=== PATIENT | female | born 1955 | race Caucasian/White ===

== ENCOUNTER → 2024-01-01 13:36 | Outpatient (BNVA) | payer MEDICAID, SELFPAY | PROVIDERS: Family Provider Internal Medicine; PCP Internal Medicine; Visit Provider Nurse Practitioner Family | DX: R50.9 Fever, unspecified (principal) | CPT/HCPCS: 87400; 87426 ==

== ENCOUNTER 2024-01-10 16:27 | Emergency (ER) | payer MEDICARE, SELFPAY ==
[2024-01-10] VITALS (8 sets, daily range): BP systolic 178–230; BP diastolic 86–149; PULSE 63–90; RESP 13–23; TEMP 36.6; O2SAT 93–95
--- NOTE | 2024-01-10 16:55 | ECG_ITS ---
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 Measurements Intervals [place] Rate: 82 P: 0 TX: 0 QRS: 68 QRSD: 74 T: 14 QT: 366 QTc: 429 Interpretive Statements ATRIAL FIBRILLATION NONSPECIFIC ST & T-WAVE ABNORMALITY No previous ECG available for comparison Electronically Signed On 01-11-2024 7:51:05 CDT by Néstor Avila M.D. [email or web address].[id number]
--- NOTE | 2024-01-10 16:55 | XRR_ITS ---
PROCEDURE INFORMATION: Exam: XR Chest Exam date and time: 01/10/2024 5:06 PM Age: 68 years old Clinical indication: Other: Weakness TECHNIQUE: Imaging protocol: Radiologic exam of the chest. Views: 1 view. COMPARISON: CR XR chest 2V* [id number] 02/08/2017 11:39 AM FINDINGS: Lungs: Unremarkable. No consolidation or mass. Pleural spaces: Unremarkable. No pleural effusion. No pneumothorax. Heart/Mediastinum: Unremarkable. No cardiomegaly. Bones/joints: Unremarkable. XR/XR chest 1V portable [id number] IMPRESSION: No acute findings.
--- NOTE | 2024-01-10 17:02 | ED_ITS ---
HPI - Weakness 2 General: Chief complaint: Weakness Stated complaint: disoriented Time Seen by Provider: 01/10/24 17:02 History of Present Illness: 68-year-old female comes in today for co mplaints of poor coordination in hands and feet. Patient reports new onset today about 0800. Patient does have a extensive history of a brain aneurysm in 2016 and 2017 where she had stents placed and coils placed in her brain due to the aneurysm. Patient has a chronic smoker. Patient reports no routine meds. Patient was recently on antibiotics and steroids for upper respiratory infection. Review of Systems 2 General: Reports: 10 or more systems reviewed and unremarkable except in HPI and below PFSH ED 2 PFSH: Social History Lives independently: No Household members: family Housing: House Marital status: Single Number of children: 2 Physical Exam 2 Const: COMMON NORMALS: alert HENMT: COMMON NORMALS: normocephalic HEAD & SCALP: normocephalic Neck/C-Spine: COMMON NORMALS: full ROM Chest: COMMONS NORMALS: normal inspection of the chest Resp: COMMON NORMALS: normal respiratory effort and clear to auscultation bilaterally AUSCULTATION: clear to auscultation bilaterally Cardio: COMMON NORMALS: regular rate RATE: regular rate GI: COMMON NORMALS: Soft to palpation and non-tender PALPATION: Yes Soft to palpation : COMMON NORMALS: Yes no CVA tenderness BLADDER/KIDNEY EXAM: Yes no CVA tenderness Back/Pelvis: COMMON NORMALS: no CVA tenderness Extremity: COMMON NORMALS: normal to inspection NARRATIVE EXTREMITY EXAM: Equal strength, mild ataxia Neuro: SENSORIUM/ORIENTATION: Yes alert Course 2 Vital Signs: Vital signs: Vital Signs Temperature 97.8 F 01/10/24 16:35 Pulse Rate 84 01/11/24 02:41 Respiratory Rate 16 01/11/24 02:41 Blood Pressure 178/91 01/11/24 02:41 Pulse Oximetry 92 01/11/24 02:41 Oxygen Delivery Me thod Room Air 01/11/24 02:04 MDM - Weakness Medical Decision Making 68-year-old female comes in today for concerns of unsteadiness and poor coordination that started this morning. Patient was unable to walk because she did not have any coordination over her legs and hands. Patient does have a history of brain aneurysm with stent and coil placement in 2016. Patient also has a history of nicotine dependence. Patient has had a recent upper respiratory infection on December 26. Patient appears nontoxic. Patient has some mild difficulty with coordination but continues to have difficulty with ambulation at this time. Differential diagnosis includes but not limited to stroke syndrome, ACS, sepsis, electrolyte imbalance, MS, adverse drug effect. EKG shows atrial fibrillation which patient reported no history of however family states that they had seen the surgical scheduler in 2017 for abnormal EKG that suggested possible atrial fibrillation. It is a controlled rate in the 80s. Laboratory values noted a white blood cell count of 13,000, potassium was 3.1, creatinine was 1.2. EKG noted a atrial fibrillation at a rate of 82. Reviewed this with Dr. Zacarias who recommended patient will need to be admitted for further evaluation and cardiac workup due to the new onset A-fib. 1920, CT of the head showed no acute abnormality. Patient is being given 20 mg of labetalol IV that showed no significant change in blood pressure although rate heart did slow down to in the 50s. We will give a dose of hydralazine to see if we can better control of the blood pressure with a goal of 180 systolic. Patient denies any headache or chest pain at this time. Patient appears nontoxic. No facial drooping or weakness is noted to 1 side or the other. Patient has some drift in bilateral lower extremities on exam. Patient does have poor coordination and unable to ambulate without assistance. 1944, reviewed patient with Dr. Contreras who agreed to see the patient but wanted to wait until after CTA was completed. Patient was given hydralazine which lowered her pressure to 178/106, patient now complains of a headache after the hydralazine. 2099, abnormalities noted on the CTA were consulted with Dr. Zacarias he recommended going ahead and discussing with neurology at [facility] in [place] for further recommendations of care. Second EKG noted more sinus arrhythmia versus atrial fibrillation. 2117, talked with Dr. Stokes at [facility] in [place], neurologist. He reviewed CTA and feels patient would benefit from coming over to them for further evaluation and treatment. NIH stroke scale noted to be 1 at this time due to drift in the right lower extremity. I reviewed this with patient and family who agreed to plan at this time. Dr. Stokes recommended keeping the blood pressure at 200 systolic. 2202, discussed patient with hospitalist Shlomo Jeff, Dr. Dejesus, he excepted patient for admit to neuro telemetry. Patient is resting well. Skin is warm and dry. Patient denies any headache at this time. Lab Data 01/10/24 17:30 01/10/24 17:30 Radiology Impressions Chest X-Ray 01/10/24 16:55 IMPRESSION: No acute findings. Head CT 01/10/24 17:25 IMPRESSION: No acute intracranial abnormality. Head/Neck CTA 01/10/24 19:21 IMPRESSION: No large vessel occlusion. Vascular coils in the basilar tip obscure the proximal posterior cerebral arteries which are patent more distally. IMPRESSION: 1. Partial occlusion or dissection of the cervical right vertebral artery of indeterminate acuity. 2. High-grade stenosis with near occlusion at the origin of the left vertebral artery. 3. 70% short segment stenosis of the right internal carotid artery origin. 4. Normal left internal carotid artery. 5. Incidental findings above. REFERENCES: NASCET CRITERIA. The degree of stenosis in the cervical segment of the internal carotid artery is based on NASCET criteria. Normal is no stenosis. Mild is less than 50% stenosis. Moderate is 50-69% stenosis. Severe is 70% to 99% stenosis. Total occlusion is no detectable patent lumen. ADDENDUM: 01/10/242052 THIS REPORT CONTAINS FINDINGS THAT MAY BE CRITICAL TO PATIENT CARE. The findings and recommendations were verbally communicated by me via telephone conference with ZEUS BEY at 8:50 PM CDT on 01/10/2024. The findings were acknowledged and understood. Laboratory Results WBC 13.92 10^3/uL (3.29-11.43) H 01/10/24 17: RBC 4.54 10^6/uL (3.85-5.65) 01/10/24 17:30 Hgb 13.60 g/dL (11.27-16.99) 01/10/24 17:30 Hct 37.0 % (36-47) 01/10/24 17:30 MCV 81.5 fl (85-98) L 01/10/24 17: MCH 30.0 pg (27-33) 01/10/24 17:30 MCHC 36.8 g/dL (30-55) 01/10/24 17:30 RDW 12.1 % (12.1-15.1) 01/10/24 17:30 Plt Count 391 10^3/cmm (157-399) 01/10/24 17:30 MPV 9.0 fL (7.4-10.4) 01/10/24 17:30 Neut % (Auto) 60.0 % 01/10/24 17:30 Lymph % (Auto) 30.0 % 01/10/24 17:30 Giles % (Auto) 8.8 % 01/10/24 17:30 Eos % (Auto) 0.5 % 01/10/24 17:30 Baso % (Auto) 0.3 % 01/10/24 17:30 Neut # (Auto) 8.35 10^3/uL (1.8-7.7) H 01/10/24 17:30 Lymph # (Auto) 4.2 10^3/uL (0.8-4.8) 01/10/24 17:30 Giles # (Auto) 1.2 10^3/uL (0.2-0.9) H 01/10/24 17:30 Eos # (Auto) 0.1 10^3/uL (0.0-0.8) 01/10/24 17:30 Baso # (Auto) 0.0 10^3/uL (0.0-0.1) 01/10/24 17:30 Nucleated RBC % (auto) 0 % 01/10/24 17: Nucleated RBCs # 0.0 /100WBC 01/10/24 17:30 ESR 6 mm/hr (0-15) 01/10/24 17:30 PT 12.80 SECONDS (12.1-14.9) 01/10/24 17:30 INR 0.94 (0.8-1.2) 01/10/24 17:30 APTT 27.5 SECONDS (23.9-36.7) 01/10/24 17:30 Sodium 136 mmol/L (136-145) 01/10/24 17:30 Potassium 3.1 mmol/L (3.5-5.1) L 01/10/24 17:30 Chloride 91 mmol/L (98-107) L 01/10/24 17:30 Carbon Dioxide 32 mmol/L (22-29) H 01/10/24 17:30 Anion Gap 16.1 (5-19) 01/10/24 17:30 BUN 22 mg/dL (8-23) 01/10/24 17:30 Creatinine 1.2 mg/dL (0.5-0.9) H 01/10/24 17:30 GFR Calculation 44.8 mL/min (90-130) L 01/10/24 17:30 Glucose 100 mg/dL (65-115) 01/10/24 17:30 Calculated Osmolality 285 mOsm/kg (285-295) 01/10/24 17:30 Calcium 8.7 mg/dL (8.5-10.5) 01/10/24 17:30 Magnesium 1.8 mg/dL (1.7-2.3) 01/10/24 17:30 Total Bilirubin 0.4 mg/dL (0.15-1.2) 01/10/24 17:30 AST 21 U/L (0-32) 01/10/24 17:30 ALT 17 U/L (0-33) 01/10/24 17:30 Alkaline Phosphatase 82 U/L (35-105) 01/10/24 17:30 Creatine Kinase 33 U/L (26-192) 01/10/24 17:30 Troponin T Baseline 38 ng/L (0-10) H 01/10/24 17:30 Troponin T 120 Minute 37.13 ng/L (0-10) H 01/10/24 19:17 Delta Troponin T -0.87 ABS# (0-10) L 01/10/24 19:17 Troponin T Hi Sens 6Hr 40.29 ng/L (0-10) H 01/10/24 23:42 Troponin T Hi Sens 6Hr Delta 2.29 ng/L (0-12) 01/10/24 23:42 C-Reactive Protein 3.0 mg/L (0.0-4.9) 01/10/24 17:30 Total Protein 5.9 g/dL (6.6-8.7) L 01/10/24 17:30 Albumin 3.8 g/dL (3.5-5.2) 01/10/24 17:30 Globulin 2.1 g/dL (1.3-4.6) 01/10/24 17:30 Lipase 34 U/L (13-60) 01/10/24 17:30 TSH 0.94 uIU/mL (0.27-4.20) 01/10/24 17:30 Urine Color Yellow (Yellow) 01/10/24 18:11 Urine Appearance Clear (CLEAR) 01/10/24 18:11 Urine pH 6 (5-7) 01/10/24 18:11 Ur Specific [place] 1.015 (1.005-1.030) 01/10/24 18:11 Urine Protein 3+ (Negative) H 01/10/24 18:11 Urine Glucose (UA) Norm (Normal) 01/10/24 18:11 Urine Ketones Negative (Negative) 01/10/24 18:11 Urine Blood Neg (Negative) 01/10/24 18:11 Urine Nitrate Negative (Negative) 01/10/24 18:11 Urine Bilirubin Neg (Negative) 01/10/24 18:11 Urine Urobilinogen 1 mg/dL (Negative) H 01/10/24 18:11 Ur Leukocyte Esterase Negative (Negative) 01/10/24 18:11 Urine RBC 0-4 /hpf (0-2) H 01/10/24 18:11 Urine WBC 0-4 /hpf (0-5) H 01/10/24 18:11 Ur Squamous Epith Cells 0-4 /hpf (0-5) H 01/10/24 18:11 Amorphous Sediment Not Reportable 01/10/24 18:11 Urine Bacteria Trace /hpf (NONE) 01/10/24 18:11 Urine Opiates Screen Negative ng/mL (Negative) 01/10/24 18:11 Ur Barbiturates Screen Negative ng/mL (Negative) 01/10/24 18:11 Ur Phencyclidine Scrn Negative ng/mL (Negative) 01/10/24 18:11 Ur Amphetamines Screen Negative ng/mL (Negative) 01/10/24 18:11 U Benzodiazepines Scrn Negative ng/mL (Negative) 01/10/24 18:11 Urine Cocaine Screen Negative ng/mL (Negative) 01/10/24 18:11 U Marijuana (THC) Screen Positive ng/mL (Negative) H 01/10/24 18:11 Ethyl Alcohol < 10 mg/dL (0-10) 01/10/24 17:30 All radiology interpretation(s) finalized by discharge EKG Data EKG 1: EKG interpretation date: 01/10/24 EKG interpretation time: 17:35 Prior EKG tracings: not available for review Interpretation: EKG shows irregular rhythm at 82 bpm. Atrial fibs is noted. No ST elevation or ectopy is noted. No prior exam was available for comparison. Computer generated interpretation: Atrial fibrillation, nonspecific ST and T wave abnormality, abnormal rhythm EKG, unconfirmed report. Discharge Plan Discharge Patient Disposition: Xfer Short-Term Hosp Clinical Impression: Bilateral leg weakness Atrial fibrillation Qualifiers: Atrial fibrillation type: unspecified Qualified Code(s): I48.91 - Unspecified atrial fibrillation Hypertension Qualifiers: Hypertension type: unspecified Qualified Code(s): I10 - Essential (primary) hypertension Condition: Stable Referrals: Delio Riddle DO [Primary Care Provider] - Coding Level of Care Code ED Brass Buffer for [facility] [place]
--- NOTE | 2024-01-10 17:25 | CTR_ITS ---
PROCEDURE INFORMATION: Exam: CT Head Without Contrast Exam date and time: 01/10/2024 5:45 PM Age: 68 years old Clinical indication: Walking, difficulty; Prior surgery; Surgery date: 6+ months; Surgery type: Aneurysm; Additional info: Leg weakness TECHNIQUE: Imaging protocol: Computed tomography of the head without contrast. Radiation optimization: All CT scans at this facility use at least one of these dose optimization techniques: automated exposure control; mA and/or kV adjustment per patient size (includes targeted exams where dose is matched to clinical indication); or iterative reconstruction. COMPARISON: CT head wo con* [id number] 03/03/2017 11:42 AM RADIATION DOSE METRICS: Total DLP (mGy-cm): 950.39 FINDINGS: Limitations: There is beam hardening artifact from vascular coils in the suprasellar cistern. Brain: There is diffuse cerebral atrophy and chronic microvascular white matter disease. There is no significant mass effect or midline shift. There is no acute intracranial hemorrhage. Cerebral ventricles: There is mild ex vacuo dilation of the lateral ventricles. The basal cisterns are unremarkable. Paranasal sinuses: The paranasal sinuses are clear. Mastoid air cells: The mastoid air cells are clear. Bones/joints: The calvarium is intact. Soft tissues: The visible extracranial soft tissues are unremarkable. CT/CT head wo con* [id number] IMPRESSION: No acute intracranial abnormality.
[2024-01-10 17:36] LABS: Basophils % 0.3 %; Eosinophils # 0.1 10^3/uL (0.0-0.8); Eosinophils % 0.5 %; Lymphocytes # 4.2 10^3/uL (0.8-4.8); Mean Corpuscular HGB Conc 36.8 g/dL (30-55); Mean Corpuscular Volume 81.5 fl (85-98); Monocytes # 1.2 10^3/uL (0.2-0.9); Monocytes % 8.8 %; Neutrophils # 8.35 10^3/uL (1.8-7.7); Nucleated Red Blood Cells % 0 %; Platelet Count 391 10^3/cmm (157-399); Red Blood Count 4.54 10^6/uL (3.85-5.65); Red Cell Distribution Width 12.1 % (12.1-15.1); White Blood Count 13.92 10^3/uL (3.29-11.43)
[2024-01-10 17:39] LABS: Erythrocyte Sedimentation Rate 6 mm/hr (0-15)
[2024-01-10 18:04] LABS: INR 0.94 (0.8-1.2); Partial Thromboplastin Time 27.5 SECONDS (23.9-36.7)
[2024-01-10 18:16] LABS: Troponin(5th) Baseline 38 ng/L (0-10)
[2024-01-10 18:26] LABS: Alanine Aminotransferase 17 U/L (0-33); Albumin Level 3.8 g/dL (3.5-5.2); Alkaline Phosphatase 82 U/L (35-105); Anion Gap 16.1 (5-19); Aspartate Amino Transferase 21 U/L (0-32); Blood Urea Nitrogen 22 mg/dL (8-23); Calcium 8.7 mg/dL (8.5-10.5); Carbon Dioxide 32 mmol/L (22-29); Chloride 91 mmol/L (98-107); Creatine Phosphokinase 33 U/L (26-192); Creatinine Clr Calc Pharmacy 29.9693; Globulin 2.1 g/dL (1.3-4.6); Glomerular Filtration Rate 44.8 mL/min (90-130); Glucose 100 mg/dL (65-115); Lipase 34 U/L (13-60); Osmolality Calculated 285 mOsm/kg (285-295); Potassium 3.1 mmol/L (3.5-5.1); Sodium 136 mmol/L (136-145); Thyroid Stimulating Hormone 0.94 uIU/mL (0.27-4.20); Total Bilirubin 0.4 mg/dL (0.15-1.2); Total Protein 5.9 g/dL (6.6-8.7)
[2024-01-10] MEDS: labetalol 5 mg/mL SDV 20mL 20 MG IVP (18:44)
[2024-01-10 18:48] LABS: Alcohol Level < 10 mg/dL (0-10)
[2024-01-10 18:56] LABS: Amphetamines Screen Urine Negative (Negative); Barbiturates Screen Urine Negative (Negative); Benzodiazepines Screen Urine Negative (Negative); Cocaine Screen Urine Negative (Negative); Opiate Screen Urine Negative (Negative); PCP Screen Urine Negative (Negative); THC Screen Urine Positive (Negative)
[2024-01-10 19:04] LABS: Add Urine Microscopic? YES; Bilirubin Urine Neg (Negative); Blood Urine Neg (Negative); Glucose Urine UA Norm (Normal); Ketones Urine Negative (Negative); Leukocyte Esterase Urine Negative (Negative); Nitrate Urine Negative (Negative); Protein Urine 3+ (Negative); Specific Gravity, Urine 1.015 (1.005-1.030); Urine Appearance Clear (CLEAR); Urine Color Yellow (Yellow); Urobilinogen Urine 1 mg/dL (Negative); pH Urine 6 (5-7)
[2024-01-10 19:05] LABS: Add Urine Culture? No; Bacteria Urine TRACE /hpf; RBC Urine 0-4 /hpf (0-2); Squamous Epithelial Cell Urine 0-4 /hpf (0-5); WBC Urine 0-4 /hpf (0-5)
--- NOTE | 2024-01-10 19:21 | CTR_ITS ---
PROCEDURE INFORMATION: Exam: CTA Head With Contrast, Arteriography Exam date and time: 01/10/2024 8:00 PM Age: 68 years old Clinical indication: Other: Juan leg weakness; Prior surgery; Surgery date: 6+ months; Surgery type: Aneurysm; Additional info: Leg weakness bilateral TECHNIQUE: Imaging protocol: Computed tomographic angiography of the head with contrast. Exam focused on the arteries. 3D rendering (Not supervised by radiologist): MIP and/or 3D reconstructed images were created by the technologist. Radiation optimization: All CT scans at this facility use at least one of these dose optimization techniques: automated exposure control; mA and/or kV adjustment per patient size (includes targeted exams where dose is matched to clinical indication); or iterative reconstruction. Contrast material: OMNI 350; Contrast volume: 80 ml; Contrast route: INTRAVENOUS (IV); COMPARISON: CT head wo con* [id number] 01/10/2024 5:45 PM RADIATION DOSE METRICS: Total DLP (mGy-cm): 330.42 FINDINGS: ANTERIOR CIRCULATION: Right internal carotid artery: There is mild ectasia of the mid cavernous portion of the right internal carotid artery without stenosis. Right middle cerebral artery: No occlusion or significant stenosis. No aneurysm. Right anterior cerebral artery: No occlusion or significant stenosis. No aneurysm. Left internal carotid artery: Intracranial segment is patent with no significant stenosis. No aneurysm. Left middle cerebral artery: No occlusion or significant stenosis. No aneurysm. Left anterior cerebral artery: No occlusion or significant stenosis. No aneurysm. POSTERIOR CIRCULATION: Right vertebral artery: Patent hypoplastic right vertebral artery. Left vertebral artery: Patent left dominant vertebral artery. Basilar artery: There are vascular coils in the basilar tip obscuring the posterior cerebral artery origins. Right posterior cerebral artery: The right posterior cerebral artery is normal beyond the P1 segment and is obscured more proximally. Left posterior cerebral artery: The left posterior cerebral artery is normal beyond the P1 segment and is obscured more proximally. Veins: Dural venous sinuses are patent. Brain: There is no significant mass effect or midline shift. No pathologic enhancement of the brain. Cerebral ventricles: There is mild ex vacuo dilation of the lateral ventricles. The basal cisterns are unremarkable. Pituitary gland and sella: There is beam hardening artifact from vascular coils in the suprasellar cistern. Mastoid air cells: The mastoid air cells are clear. Paranasal sinuses: The paranasal sinuses are clear. Bones/joints: The calvarium is intact. Soft tissues: The visible extracranial soft tissues are unremarkable. PROCEDURE INFORMATION: Exam: CTA Neck With Contrast Exam date and time: 01/10/2024 8:00 PM Age: 68 years old Clinical indication: Other: Juan leg weakness; Prior surgery; Surgery date: 6+ months; Surgery type: Aneurysm; Additional info: Leg weakness bilateral TECHNIQUE: Imaging protocol: Computed tomographic angiography of the neck with contrast. Exam focused on the cervical segments of the vasculature. 3D rendering (Not supervised by radiologist): MIP and/or 3D reconstructed images were created by the technologist. Radiation optimization: All CT scans at this facility use at least one of these dose optimization techniques: automated exposure control; mA and/or kV adjustment per patient size (includes targeted exams where dose is matched to clinical indication); or iterative reconstruction. Contrast material: OMNI 350; Contrast volume: 80 ml; Contrast route: INTRAVENOUS (IV); COMPARISON: CT head wo con* [id number] 01/10/2024 5:45 PM RADIATION DOSE METRICS: Total DLP (mGy-cm): 330.42 FINDINGS: Right common carotid artery: No stenosis. No dissection or occlusion. Right internal carotid artery: There is severe noncalcific plaque at the origin of the right internal carotid artery with approximately 70% stenosis over a short segment. Right external carotid artery: No occlusion or stenosis of the origin. Left common carotid artery: No stenosis. No dissection or occlusion. Left internal carotid artery: No stenosis of the extracranial segment. No dissection or occlusion. Left external carotid artery: No occlusion or stenosis of the origin. Right vertebral artery: The origin is of the right vertebral artery is patent. There is minimal intermittent contrast visible in the cervical portion of the right vertebral artery, incompletely filling the lumen. Left vertebral artery: There is high-grade stenosis with near occlusion of the left dominant vertebral artery origin. Soft tissues: Soft tissues in the neck and thoracic inlet are unremarkable. Bones/joints: There is moderate degenerative disease in the cervical spine. Lungs: The severe centrilobular emphysema is seen in the lung apices. CT/CT angio headneck* [id number] IMPRESSION: No large vessel occlusion. Vascular coils in the basilar tip obscure the proximal posterior cerebral arteries which are patent more distally. IMPRESSION: 1. Partial occlusion or dissection of the cervical right vertebral artery of indeterminate acuity. 2. High-grade stenosis with near occlusion at the origin of the left vertebral artery. 3. 70% short segment stenosis of the right internal carotid artery origin. 4. Normal left internal carotid artery. 5. Incidental findings above. REFERENCES: NASCET CRITERIA. The degree of stenosis in the cervical segment of the internal carotid artery is based on NASCET criteria. Normal is no stenosis. Mild is less than 50% stenosis. Moderate is 50-69% stenosis. Severe is 70% to 99% stenosis. Total occlusion is no detectable patent lumen.
[2024-01-10] MEDS: hyDRALAzine 20 mg/mL INJ 1 mL 10 MG IVP (19:33)
[2024-01-10] MEDS: potassium chloride oral liq 20 mEq/15 mL UDC 40 MEQ PO (19:33)
[2024-01-10] MEDS: aspirin 81 mg Chew Tablet 162 MG PO (19:33)
[2024-01-10 19:42] LABS: Troponin 5 2HR 37.13 ng/L (0-10)
[2024-01-10 19:44] LABS: Magnesium 1.8 mg/dL (1.7-2.3)
[2024-01-10 19:44] LABS: Troponin 5 2HR Delta -0.87 ABS# (0-10)
[2024-01-10] MEDS: iohexol 350 mg/mL 500 mL Btl (per mL) IV (20:00)
[2024-01-10] MEDS: acetaminophen 325 mg Tablet 650 MG PO (20:12)
--- NOTE | 2024-01-10 20:35 | ECG_ITS ---
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 Measurements Intervals [place] Rate: 80 P: 78 KS: 151 QRS: 71 QRSD: 71 T: 53 QT: 367 QTc: 424 Interpretive Statements SINUS RHYTHM WITH MARKED SINUS ARRHYTHMIA Compared to ECG 01/10/2024 17:03:52 Atrial fibrillation no longer present T-wave abnormality no longer present Electronically Signed On 01-11-2024 7:49:55 CDT by Néstor Avila M.D. [email or web address] [facility].[employer]/store/OM/[id number]
[2024-01-11 00:11] VITALS: BP 216/98; PULSE 86; RESP 18; O2SAT 94
[2024-01-11 00:11] LABS: Troponin 5 6HR 40.29 ng/L (0-10); Troponin 5 6HR Delta 2.29 ng/L (0-12)
[2024-01-11] MEDS: oxyCODONE 5 mg IR Tab/Cap PO (00:11)
[2024-01-11 00:35] VITALS: BP 190/120; PULSE 94; O2SAT 94
[2024-01-11 01:05] VITALS: BP 228/125; PULSE 62; O2SAT 95
[2024-01-11] MEDS: labetalol 5 mg/mL SDV 20mL 10 MG IVP (01:54)
[2024-01-11 02:04] VITALS: BP 178/93; PULSE 58; O2SAT 90
[2024-01-11 02:41] VITALS: BP 178/91; PULSE 84; RESP 16; O2SAT 92
--- NOTE | 2024-01-11 02:56 | PC.NURSE ---
Report called to Joy Mcnair RN at [facility]. Patient to be transferred to room [facility]. Patient agreed to fly via [facility].
--- NOTE | 2024-01-11 03:22 | PC.NURSE ---
Report given to Rashad flight nurse. All questions and concerns addressed at time of report.
== END 2024-01-11 03:42 | disposition short-term general hospital (02) ==
PROVIDERS: Emergency Medicine; Emergency Provider Nurse Practitioner Family; PCP Internal Medicine
DX: R53.1 Weakness (principal); I48.91 Unspecified atrial fibrillation; I10 Essential (primary) hypertension; Z72.0 Tobacco use
CPT/HCPCS: 36415; 70450; 70496; 70498; 71045; 80053; 80306; 80307; 81001; 82550; 83690; 83735; 84443; 84484; 85025; 85610; 85651; 85730; 86140; 93005; 96374; 96375; 96376; 99285; J0360; J3490; Q9967

== ENCOUNTER 2024-02-15 19:58 | Inpatient (IN) | payer MEDICARE, SELFPAY ==
[2024-02-15] VITALS (8 sets, daily range): BP systolic 162–224; BP diastolic 77–111; PULSE 65–95; RESP 17–22; TEMP 36.4; O2SAT 93–99
--- NOTE | 2024-02-15 20:13 | CTR_ITS ---
PROCEDURE INFORMATION: Exam: CT Head Without Contrast Exam date and time: 02/15/2024 8:18 PM Age: 68 years old Clinical indication: Stroke-like symptoms; RT upper extremity and RT lower extremity weakness; Additional info: Symptoms of acute stroke TECHNIQUE: Imaging protocol: Computed tomography of the head without contrast. Radiation optimization: All CT scans at this facility use at least one of these dose optimization techniques: automated exposure control; mA and/or kV adjustment per patient size (includes targeted exams where dose is matched to clinical indication); or iterative reconstruction. Other technique: STROKE PROTOCOL was implemented. COMPARISON: CT angio headneck* [id number] 01/10/2024 8:00 PM RADIATION DOSE METRICS: Total DLP (mGy-cm): 930.4 FINDINGS: Brain: No hemorrhage. No edema. Coil embolization material noted. Moderate diffuse cerebral atrophy and sequela of chronic small vessel ischemic disease. Focal areas of encephalomalacia noted in the left cerebellar hemisphere and right occipital lobe corresponding to old infarcts. No mass effect. Cerebral ventricles: No ventriculomegaly. Paranasal sinuses: Visualized sinuses are unremarkable. No fluid levels. Mastoid air cells: Visualized mastoid air cells are well aerated. Bones/joints: Unremarkable. No acute fracture. Soft tissues: Unremarkable. CT/CT head thrombolytic [id number] IMPRESSION: No acute intracranial abnormality. ASSESSMENT: ASPECTS ([place] Stroke Program Early CT Score) is 10.
--- NOTE | 2024-02-15 20:13 | XRR_ITS ---
PROCEDURE INFORMATION: Exam: XR Chest Exam date and time: 02/15/2024 8:43 PM Age: 68 years old Clinical indication: Other: AMS TECHNIQUE: Imaging protocol: Radiologic exam of the chest. Views: 1 view. COMPARISON: CR (CHEST, ) 01/10/2024 5:06 PM FINDINGS: Lungs: Unremarkable. No consolidation. Pleural spaces: Unremarkable. No pleural effusion. No pneumothorax. Heart/Mediastinum: Unremarkable. No cardiomegaly. Bones/joints: Unremarkable. XR/XR chest 1V portable [id number] IMPRESSION: No acute findings.
[2024-02-15 20:26] LABS: Basophils # 0.1 10^3/uL (0.0-0.1); Basophils % 0.4 %; Eosinophils # 0.1 10^3/uL (0.0-0.8); Eosinophils % 0.5 %; Hematocrit 40.3 % (36-47); Lymphocytes # 2.6 10^3/uL (0.8-4.8); Mean Corpuscular HGB Conc 35.5 g/dL (30-55); Mean Corpuscular Hemoglobin 29.1 pg (27-33); Mean Corpuscular Volume 82.1 fl (85-98); Mean Platelet Volume 9.4 fL (7.4-10.4); Monocytes # 0.8 10^3/uL (0.2-0.9); Monocytes % 5.5 %; Neutrophils # 10.05 10^3/uL (1.8-7.7); Neutrophils % 74.3 %; Nucleated Red Blood Cells % 0 %; Platelet Count 338 10^3/cmm (157-399); Red Blood Count 4.91 10^6/uL (3.85-5.65); White Blood Count 13.55 10^3/uL (3.29-11.43)
[2024-02-15] MEDS: labetalol 5 mg/mL SDV 20mL IVP ×2 (20:28→20:59)
--- NOTE | 2024-02-15 20:29 | ECG_ITS ---
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 Measurements Intervals [place] Rate: 75 P: 80 IA: 158 QRS: 73 QRSD: 80 T: 55 QT: 384 QTc: 431 Interpretive Statements SINUS RHYTHM WITH OCCASIONAL SUPRAVENTRICULAR PREMATURE COMPLEXES MODERATE ST DEPRESSION [0.05+ mV ST DEPRESSION] Compared to ECG 01/10/2024 20:35:22 ST (T wave) deviation now present Sinus arrhythmia no longer present Electronically Signed On 02-17-2024 19:16:39 CDT by Jalen Alejandre M.D. [id number]
--- NOTE | 2024-02-15 20:37 | P.HP_ITS ---
Providers/Chief Complaint 2 Primary Care Provider: Delio Riddle DO Chief Complaint: right arm and leg weakness History of Present Illness Debbie Peres is a 68 year old female who was seen in the ER a month ago when she presented with right-sided weakness, she had diagnosis of 70% stenosis of right internal carotid and possibility of vertebral dissection she was transferred to [facility] she was admitted to neuro service. As per the patient she was managed medically no surgical intervention was recommended because risk outweighed benefits she has history of 2 coiling and stent in the past. 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 She was out of TNKase window code stroke was called, she was hypertensive blood pressure 206/93 m mercury, she was given labetalol. We request records from [facility]. Patient does smoke however stating that she is try to cut back on her smoking Does not drink alcohol, she is not diabetic CT head unremarkable I will request CTA head and neck as well NIH score 6 Review of Systems 2 Eyes: Denies: change in vision ENMT: Denies: throat pain Card: Denies: chest pain Resp: Denies: dyspnea GI: Denies: abdominal pain : Denies: flank pain Musc: Reports: back pain Neuro: Reports: numbness in extremities and sensory changes Medications/Allergies Home Medications Medication Instructions Recorded Confirmed Last Taken Type albuterol sulfate 90 mcg/actuation 2 puff inhalation QID PRN 01/01/24 01/01/24 Unknown Rx aerosol inhaler shortness of breath or wheezing #6.7 grams azithromycin 250 mg tablet See Rx Instructions PO .COMPLEX #6 01/01/24 01/01/24 Unknown Rx tabs ondansetron 8 mg disintegrating 8 mg PO Q8H PRN nausea and 01/01/24 01/01/24 Unknown Rx tablet vomiting #21 tabs prednisone 20 mg tablet 20 mg PO BID #10 tabs 01/01/24 01/01/24 Unknown Rx Allergies Allergy/AdvReac Type Severity Reaction Status Date / Time No Known Allergies Allergy Unverified 02/15/24 20:04 PFSH Acute 2 PFSH: Social History Lives independently: No Household members: family Housing: House Marital status: Single Number of children: 2 Vitals/I&O/Wt Last Vital Signs Temp 97.5 F L 02/15/24 19:59 Pulse 78 02/15/24 20:37 Resp 20 H 02/15/24 20:37 BP 189/99 02/15/24 20:37 Pulse Ox 94 02/15/24 20:37 O2 Del Method Room Air 02/15/24 20:37 Weight last 48 hrs Weight 43.998 kg Physical Exam 2 Narrative: Anion score 6 Right hand prepress stripper weakness as compared to left Difficulty lifting right limbs against gravity Right arm drift present Right-sided visual field defect No dysarthria Pleasant cooperative S1, S2 Currently movement Data 02/15/24 20:14 02/15/24 20:14 A&P Assessment and plan (1) CVA (cerebral vascular accident): (2) Hypertensive emergency: Plan Acute CVA Ischemic in nature Likely anterior circulation related Recurrent symptoms NIH score is 6 Not a TNKase candidate her symptoms started 8 AM I will start patient on aspirin Plavix along high-dose statins Request PT OT and ST CT head unremarkable Previous CTA head and neck showed: 1. Partial occlusion or dissection of the cervical right vertebral artery of indeterminate acuity. 2. High-grade stenosis with near occlusion at the origin of the left vertebral artery. 3. 70% short segment stenosis of the right internal carotid artery origin. 4. Normal left internal carotid artery. 5. Incidental findings above Will request B12, TSH, echo Will request records from [facility] As per the patient neurology recommended medical management Hypertensive emergency: Patient has been given labetalol I will add amlodipine and lisinopril Permissive hypertension for next 24 hours Full code Cardiac diet DVT prophylaxis added Patient is an active smoker, smokes less than half pack a day Will need extensive counseling Attestations 2 Medical Necessity Statement*: Anticipating discharge within 48 hours Diagnoses CVA (cerebral vascular accident) I63.9 Hypertensive emergency I16.1
[2024-02-15 20:43] LABS: INR 0.92 (0.8-1.2)
[2024-02-15 20:44] LABS: Partial Thromboplastin Time 33.3 SECONDS (23.9-36.7)
[2024-02-15 20:45] LABS: Glucose Point of Care 160 mg/dL (70-110)
[2024-02-15 20:50] LABS: Alanine Aminotransferase 39 U/L (0-33); Albumin Level 4.5 g/dL (3.5-5.2); Alkaline Phosphatase 104 U/L (35-105); Aspartate Amino Transferase 44 U/L (0-32); Blood Urea Nitrogen 14 mg/dL (8-23); Calcium 9.8 mg/dL (8.5-10.5); Carbon Dioxide 27 mmol/L (22-29); Chloride 96 mmol/L (98-107); Creatinine Clr Calc Pharmacy 37.9177; Globulin 3.6 g/dL (1.3-4.6); Glomerular Filtration Rate 55.3 mL/min (90-130); Glucose 156 mg/dL (65-115); Osmolality Calculated 286 mOsm/kg (285-295); Sodium 136 mmol/L (136-145); Total Bilirubin 0.5 mg/dL (0.15-1.2); Total Protein 8.1 g/dL (6.6-8.7)
--- NOTE | 2024-02-15 20:58 | W.ED.NEUROSD ---
HPI - Neuro Symptoms/Deficit General: Chief Complaint: Neuro Symptoms/Deficit Stated Complaint: right arm and leg weakness Time Seen by Provider: 02/15/24 20:12 History of Present Illness: 68-year-old female presents emergency department with her family members. [place] member states that the patient started having right arm and right leg weakness that started approximately 8 AM this morning and has continued throughout the day. The family member state that her last known well time was at 2200 last night. Patient does have a history of brain aneurysm with coiling and has had a previous CVA and has uncontrolled hypertension. Patient states she does have a 5 out of 10 throbbing headache. She also reports that she did have a fall this morning after she noted her right side being weak. Associated symptoms: Reports headache(s) Review of Systems General: Reports: 10 or more systems reviewed and unremarkable except in HPI and below Neuro: Reports: headache(s), weakness in extremities and Slurred speech present [facility] ED PFSH: Social History Lives independently: No Household members: family Housing: House Marital status: Single Number of children: 2 Physical Exam Narrative: EXAM NARRATIVE: Constitutional: the patient appears well nourished and with normal development. Vital signs reviewed as documented. HENMT: Normocephalic, atraumatic. External ears normal appearance without drainage. Nose without drainage, normal appearance. Mucus membranes moist. Neck is supple, No jugular venous distension, trachea is midline, no appreciable carotid bruits. No lymphadenopathy. No meningeal signs. Flexion, extension and lateral rotation is without pain. Eyes: Pupils are equal, round, reactive to light and accommodation. No scleral icterus. Extra-ocular movement are intact. Thorax is symmetrical and with equal rise and fall with respirations. Resp: Lungs are clear to auscultation. No wheezes, rales, crackles or ronchi at present. Cardio: Regular rate and rhythm. Positive S1, S2. No appreciable murmurs, rubs or gallops. GI: Abdominal exam reveals normal bowel sounds to all quadrants. No organomegaly. No obvious palpable masses noted. No hepatomegally appreciated. Soft, non-tender to palpation. Extremity: Extremities are non-edematous and both femoral and pedal pulses are 2+ and equal bilaterally. Moves all extremities well, sensation in all extremities. Neuro: Alert and oriented x4, person, place, time and situation. Patient does have right arm and right leg weakness and facial droop. Sensation intact to all extremities. 2-point discrimination intact. Light touch intact to all extremities. Motor strength in the upper and lower extremities are equal and bilateral 5/5. Psych: Cooperative, calm, normal thought process, appropriate judgment. Skin: No lesions, rashes. No gross abnormalities noted. Back: Symmetrical, no obvious deformity, No CVA tenderness Course Vital Signs: Vital signs: Vital Signs Temperature 97.5 F L 02/15/24 19:59 Pulse Rate 65 02/15/24 21:05 Respiratory Rate 17 02/15/24 21:05 Blood Pressure 162/83 02/15/24 21:15 Pulse Oximetry 95 02/15/24 21:05 Oxygen Delivery Me thod Room Air 02/15/24 20:51 MDM - Neuro Symptoms/Deficit Medical Decision Making NIH Stroke Scale/Score (NIHSS) on 02/15/2024 RESULT SUMMARY: 7 points NIH Stroke Scale INPUTS: 1A: Level of consciousness ?> 0 = Alert; keenly responsive 1B: Ask month and age ?> 0 = Both questions right 1C: 'Blink eyes' & 'squeeze hands' ?> 0 = Performs both tasks 2: Horizontal extraocular movements ?> 0 = Normal 3: Visual suh ?> 0 = No visual loss 4: Facial palsy ?> 2 = Partial paralysis (lower face) 5A: Left arm motor drift ?> 0 = No drift for 10 seconds 5B: Right arm motor drift ?> 2 = Drift, hits bed 6A: Left leg motor drift ?> 0 = No drift for 5 seconds 6B: Right leg motor drift ?> 2 = Drift, hits bed 7: Limb Ataxia ?> 1 = Ataxia in 1 Limb 8: Sensation ?> 0 = Normal; no sensory loss 9: Language/aphasia ?> 0 = Normal; no aphasia 10: Dysarthria ?> 0 = Normal 11: Extinction/inattention ?> 0 = No abnormality Dr. Bay contacted and the patient's presentation and NIH score discussed with her. I did obtain a CT scan of the head as well as CBC CMP EKG chest x-ray. Patient's blood pressure is significantly elevated and I have provided labetalol for control of her hypertension. I will also requested previous medical records from [facility]. Medical Records I reviewed the patient's medical records. Lab Data I reviewed the patient's lab results. 02/15/24 20:14 02/15/24 20:14 Radiology Impressions Chest X-Ray 02/15/24 20:13 IMPRESSION: No acute findings. Head CT 02/15/24 20:13 IMPRESSION: No acute intracranial abnormality. ASSESSMENT: ASPECTS (Libby Stroke Program Early CT Score) is 10. Laboratory Results WBC 13.55 10^3/uL (3.29-11.43) H 02/15/24 20:14 RBC 4.91 10^6/uL (3.85-5.65) 02/15/24 20:14 Hgb 14.30 g/dL (11.27-16.99) 02/15/24 20:14 Hct 40.3 % (36-47) 02/15/24 20:14 MCV 82.1 fl (85-98) L 02/15/24 20:14 MCH 29.1 pg (27-33) 02/15/24 20:14 MCHC 35.5 g/dL (30-55) 02/15/24 20:14 RDW 12.0 % (12.1-15.1) L 02/15/24 20:14 Plt Count 338 10^3/cmm (157-399) 02/15/24 20:14 MPV 9.4 fL (7.4-10.4) 02/15/24 20:14 Neut % (Auto) 74.3 % 02/15/24 20:14 Lymph % (Auto) 19.0 % 02/15/24 20:14 Dodge % (Auto) 5.5 % 02/15/24 20:14 Eos % (Auto) 0.5 % 02/15/24 20:14 Baso % (Auto) 0.4 % 02/15/24 20:14 Neut # (Auto) 10.05 10^3/uL (1.8-7.7) H 02/15/24 20:14 Lymph # (Auto) 2.6 10^3/uL (0.8-4.8) 02/15/24 20:14 Dodge # (Auto) 0.8 10^3/uL (0.2-0.9) 02/15/24 20:14 Eos # (Auto) 0.1 10^3/uL (0.0-0.8) 02/15/24 20:14 Baso # (Auto) 0.1 10^3/uL (0.0-0.1) 02/15/24 20:14 Nucleated RBC % (auto) 0 % 02/15/24 20:14 Nucleated RBCs # 0.0 /100WBC 02/15/24 20:14 PT 12.70 SECONDS (12.1-14.9) 02/15/24 20:14 INR 0.92 (0.8-1.2) 02/15/24 20:14 APTT 33.3 SECONDS (23.9-36.7) 02/15/24 20:14 Sodium 136 mmol/L (136-145) 02/15/24 20:14 Potassium 3.0 mmol/L (3.5-5.1) L 02/15/24 20:14 Chloride 96 mmol/L (98-107) L 02/15/24 20:14 Carbon Dioxide 27 mmol/L (22-29) 02/15/24 20:14 Anion Gap 16.0 (5-19) 02/15/24 20:14 BUN 14 mg/dL (8-23) 02/15/24 20:14 Creatinine 1.0 mg/dL (0.5-0.9) H 02/15/24 20:14 GFR Calculation 55.3 mL/min (90-130) L 02/15/24 20:14 Glucose 156 mg/dL (65-115) H 02/15/24 20:14 POC Glucose 160 mg/dL (70-110) H 02/15/24 20:12 Calculated Osmolality 286 mOsm/kg (285-295) 02/15/24 20:14 Calcium 9.8 mg/dL (8.5-10.5) 02/15/24 20:14 Total Bilirubin 0.5 mg/dL (0.15-1.2) 02/15/24 20:14 AST 44 U/L (0-32) H 02/15/24 20:14 ALT 39 U/L (0-33) H 02/15/24 20:14 Alkaline Phosphatase 104 U/L (35-105) 02/15/24 20:14 Total Protein 8.1 g/dL (6.6-8.7) 02/15/24 20:14 Albumin 4.5 g/dL (3.5-5.2) 02/15/24 20:14 Globulin 3.6 g/dL (1.3-4.6) 02/15/24 20:14 All radiology interpretation(s) finalized by discharge EKG Data EKG 1: Interpretation: Twelve-lead EKG obtained at 2028 reviewed at 2029 demonstrates sinus rhythm with a ventricular rate of 75 bpm, DE interval 158, QRS duration 80, QT 384, QTc 413 there is no significant ST elevation or depression at present. There is significant motion artifact noted. Critical Care Time Critical Care Time: Critical Care Time: Yes Total Critical Care Time: 45 Attestation: The patients was emergently evaluated as this patient's presentation and case had a high probability of a clinically significant, sudden, or life threatening deterioration of this patient's initial critical presentation or condition which required my full and direct attention, intervention and personal management. Discharge Plan Discharge Patient Disposition: Admitted As Inpatient Admit Provider: Lizzy Contreras Clinical Impression: Posterior reversible encephalopathy syndrome (PRES), Cerebrovascular accident, Hypertension, uncontrolled, Hypertensive emergency Condition: Stable Coding Level of Care Code ED Theology Professor for Soledad Marrero
--- NOTE | 2024-02-15 21:06 | CTR_ITS ---
PROCEDURE INFORMATION: Exam: CTA Head With Contrast, Arteriography Exam date and time: 02/15/2024 9:39 PM Age: 68 years old Clinical indication: Stroke-like symptoms; RT upper extremity weakness; Additional info: CVA TECHNIQUE: Imaging protocol: Computed tomographic angiography of the head with contrast. Exam focused on the arteries. 3D rendering (Not supervised by radiologist): MIP and/or 3D reconstructed images were created by the technologist. Radiation optimization: All CT scans at this facility use at least one of these dose optimization techniques: automated exposure control; mA and/or kV adjustment per patient size (includes targeted exams where dose is matched to clinical indication); or iterative reconstruction. Contrast material: OMNI 350; Contrast volume: 80 ml; Contrast route: INTRAVENOUS (IV); COMPARISON: CT angio headneck* [id number] 01/10/2024 8:00 PM RADIATION DOSE METRICS: Total DLP (mGy-cm): 306.3 FINDINGS: ANTERIOR CIRCULATION: Right internal carotid artery: Intracranial segment is patent with no significant stenosis. No aneurysm. Right middle cerebral artery: No occlusion or significant stenosis. No aneurysm. Right anterior cerebral artery: No occlusion or significant stenosis. No aneurysm. Left internal carotid artery: Intracranial segment is patent with no significant stenosis. No aneurysm. Left middle cerebral artery: No occlusion or significant stenosis. No aneurysm. Left anterior cerebral artery: No occlusion or significant stenosis. No aneurysm. POSTERIOR CIRCULATION: Right vertebral artery: No occlusion or significant stenosis. No aneurysm. Hypoplastic. Left vertebral artery: No occlusion or significant stenosis. No aneurysm. Basilar artery: Vascular coils in the basilar tip obscure the proximal posterior cerebral arteries which are patent more distally. Right posterior cerebral artery: No occlusion or significant stenosis. No aneurysm. Left posterior cerebral artery: No occlusion or significant stenosis. No aneurysm. Brain: No focal hemorrhage or midline shift identified. Cerebral ventricles: No evidence of ventriculomegaly or hydrocephalus. The ventricles seem age-appropriate. Bones/joints: Unremarkable. No acute fracture. Soft tissues: Unremarkable. PROCEDURE INFORMATION: Exam: CTA Neck With Contrast Exam date and time: 02/15/2024 9:39 PM Age: 68 years old Clinical indication: Stroke-like symptoms; RT upper extremity weakness; Additional info: CVA TECHNIQUE: Imaging protocol: Computed tomographic angiography of the neck with contrast. Exam focused on the cervical segments of the vasculature. 3D rendering (Not supervised by radiologist): MIP and/or 3D reconstructed images were created by the technologist. Radiation optimization: All CT scans at this facility use at least one of these dose optimization techniques: automated exposure control; mA and/or kV adjustment per patient size (includes targeted exams where dose is matched to clinical indication); or iterative reconstruction. Contrast material: OMNI 350; Contrast volume: 80 ml; Contrast route: INTRAVENOUS (IV); COMPARISON: CT angio headneck* [id number] 01/10/2024 8:00 PM RADIATION DOSE METRICS: Total DLP (mGy-cm): 306.3 FINDINGS: Right common carotid artery: No stenosis. No dissection or occlusion. Right internal carotid artery: At the right proximal ICA there is an 80% stenosis. There is also motion here. The mid to distal right ICA is markedly tortuous. Right external carotid artery: No occlusion or high-grade stenosis identififed. Left common carotid artery: No stenosis. No dissection or occlusion. Left internal carotid artery: No stenosis of the extracranial segment. No dissection or occlusion. Left external carotid artery: No occlusion or high-grade stenosis identififed. Right vertebral artery: The proximal to mid right vertebral artery just beyond its origin shows no flow/occlusion. There is a small amount of flow and small size in the upper vertebral artery at the skull base. Left vertebral artery: Large plaque at left vertebral artery origin. Soft tissues: No significant soft tissue swelling or other acute finding noted. Bones/joints: Unchanged. Lungs: Mild COPD. [facility] [id number] IMPRESSION: 1. No change from 01/10/2024. 2. No large vessel stenosis or occlusion. 3. Vascular coils in the basilar tip obscure the proximal posterior cerebral arteries which are patent more distally. IMPRESSION: 1. No change from 01/10/2024. 2. Unchanged occlusion or dissection of the cervical right vertebral artery. 3. High-grade stenosis with near occlusion at the origin of the left vertebral artery. 4. 70-80% short segment stenosis of the right internal carotid artery origin. 5. Normal left internal carotid artery. 6. Incidental findings above. REFERENCES: NASCET CRITERIA. The degree of stenosis in the cervical segment of the internal carotid artery is based on NASCET criteria. Normal is no stenosis. Mild is less than 50% stenosis. Moderate is 50-69% stenosis. Severe is 70% to 99% stenosis. Total occlusion is no detectable patent lumen.
[2024-02-15 21:59] LABS: Estmated Average Glucose 97
[2024-02-15] MEDS: iohexol 350 mg/mL 500 mL Btl (per mL) IV (22:31)
--- NOTE | 2024-02-15 22:51 | USCV_ITS ---
Debbie Peres Age: 68 Gender: F : 1955 Exam Date: 02/15/2024 23:41 Ordering Phys: Lizzy Contreras MD Technologist: JOSEPH [place] [facility] [place]: cva BP: 224 / 111 HR: 75 Rhythm: Sinus Technical Quality: Adequate MEASUREMENTS (Male / Female) Normal Values 2D ECHO LV Diastolic Diameter PLAX 2.9 cm 4.2 - 5.9 / 3.9 - 5.3 cm IVS Diastolic Thickness 1.4 cm 0.6 - 1.0 / 0.6 - 0.9 cm IVS Systolic Thickness 1.5 cm LVPW Diastolic Thickness 1.2 cm 0.6 - 1.0 / 0.6 - 0.9 cm LVPW Systolic Thickness 0.0 cm LVOT Diameter 1.5 cm LV Ejection Fraction 2D Teich 64.2 % LV Ejection Fraction MOD 2C 54.5 % LV Ejection Fraction 2C AL 54.0 % LA Diameter 1.7 cm LA Sys Volume AL 20.7 cm cubed LA Sys Volume Index AL 14.8 cm cubed/m squared Aorta at Sinotubular Diameter 2.2 cm IVC Diameter 1.6 cm M-MODE LA Ao Ratio MM 1.3 MV E Point Septal Separation 0.0 cm AV Cusp Separation MM 1.5 cm DOPPLER AV Peak Velocity 166.0 cm/s LVOT Peak Velocity 128.0 cm/s AV Area Cont Eq vti 1.4 cm squared AV Area Cont Eq pk 1.3 cm squared MV Peak Velocity 91.0 cm/s MV Area PHT 3.0 cm squared Mitral E to A Ratio 0.8 TV Peak E Velocity 41.0 cm/s PV Peak Velocity 155.0 cm/s FINDINGS Left Ventricle Normal LV size with a hypercontractile ventricle, ejection fraction of 85% (visual) Moderate concentric left-ventricular hypertrophy.Grade I/IV diastolic dysfunction (abnormal relaxation filling pattern), normal to mildly elevated filling pressures. Right Ventricle The right ventricle is normal in size and function. Right Atrium The right atrium is normal in size. Left Atrium The left atrium is normal in size. Mitral Valve Thickened mitral valve. Aortic Valve Thickened aortic valve. Tricuspid Valve No gross abnormalities noted Pulmonic Valve No gross abnormalities noted Pericardium Normal pericardium without effusion. Aorta Normal ascending aorta dimension. IVC Normal inferior vena cava. CONCLUSIONS Normal LV size with a hypercontractile ventricle, ejection fraction of 85% (visual) Moderate concentric left-ventricular hypertrophy. Grade I/IV diastolic dysfunction (abnormal relaxation filling pattern), normal to mildly elevated filling pressures. Thickened aortic and mitral valves No significant stenotic or relative lesion relocated lesions There is no pericardial effusion. There are no intracardiac masses. No similar previous studies are available for comparison Dr Jalen Alejandre MD [facility] (Electronically Signed) Final Date: 20 February 2024 08:11 S
[2024-02-16] VITALS (8 sets, daily range): BP systolic 124–237; BP diastolic 64–105; PULSE 77–97; RESP 15–18; TEMP 36.4–37; O2SAT 91–95; BMI 16.6
[2024-02-16 00:11] LABS: Vitamin B12 717 pg/mL (232-1245)
[2024-02-16] MEDS: enoxaparin 40 mg/0.4 mL Syringe SUBCUT ×2 (00:24→22:21)
[2024-02-16] MEDS: lisinopril 10 mg Tablet PO ×2 (00:25→09:46)
[2024-02-16] MEDS: hyDRALAzine 20 mg/mL INJ 1 mL 10 MG IVP (04:34)
[2024-02-16 04:58] LABS: Basophils % 0.4 %; Eosinophils # 0.1 10^3/uL (0.0-0.8); Eosinophils % 1.1 %; Hematocrit 35.3 % (36-47); Lymphocytes # 2.7 10^3/uL (0.8-4.8); Lymphocytes % 25.4 %; Mean Corpuscular HGB Conc 35.7 g/dL (30-55); Mean Corpuscular Hemoglobin 29.6 pg (27-33); Mean Corpuscular Volume 82.9 fl (85-98); Mean Platelet Volume 9.5 fL (7.4-10.4); Monocytes # 0.7 10^3/uL (0.2-0.9); Monocytes % 6.9 %; Neutrophils # 6.89 10^3/uL (1.8-7.7); Neutrophils % 65.8 %; Nucleated Red Blood Cells % 0 %; Platelet Count 298 10^3/cmm (157-399); Red Blood Count 4.26 10^6/uL (3.85-5.65); Red Cell Distribution Width 12.1 % (12.1-15.1); White Blood Count 10.46 10^3/uL (3.29-11.43)
[2024-02-16 05:18] LABS: Anion Gap 15.7 (5-19); Blood Urea Nitrogen 14 mg/dL (8-23); Calcium 9.1 mg/dL (8.5-10.5); Carbon Dioxide 25 mmol/L (22-29); Chloride 93 mmol/L (98-107); Creatinine Clr Calc Pharmacy 39.0906; Glomerular Filtration Rate 55.3 mL/min (90-130); Glucose 122 mg/dL (65-115); Magnesium 1.9 mg/dL (1.7-2.3); Osmolality Calculated 274 mOsm/kg (285-295); Phosphorus 4.6 mg/dL (2.5-4.5); Sodium 131 mmol/L (136-145)
[2024-02-16 05:27] LABS: Potassium 2.7 mmol/L (3.5-5.1)
[2024-02-16] MEDS: lidocaine 1% 5 ML in potassium chloride premix 100 ML 52.5 ML IV ×2 (06:25→09:52)
--- NOTE | 2024-02-16 09:07 | PC.CHAP ---
Pastoral Care Encounter/Spiritual Assessment Type of Contact [] Declined evs manager visit [] Patient/Family/Request visit [] Outpatient visit [] Follow-up visit [] Physician referral [] Code/Alert [] Routine visit [] Staff referral [] Actively dying [x] Patient sleeping [] Family support [] [] Out of room [] Palliative care [] [] Receiving care in room [] Pre-surgical visit [] Trauma [] Long length of stay [] ICU visit [] Other: Relational/Emotional Strength [] Patient feels connected with others/family/visitors/staff [] Distress [] Loneliness/isolation [] Abandonment Spirituality of Patient [] Person of Jemma [] Attends Episcopalian of their Jemma [] Believes in Prayer [] Reads Bible or Moravian materials [] There are Spiritual issues to be addressed Assistant Family Teacher Interventions [] Prayer [] Active listening [] Non-anxious presence [] Spiritual/emotional support [] Crisis/trauma care [] Spiritual counseling [] Bereavement support [] Provided bereavement packet [] Provided Bible/devotional materials [] Provided toy/stuffed animal, coloring book to patient or family member [] Provided Communion [] Anointing/[place] [] Salvation [] Completed spiritual assessment [] Other: Impact on Illness or Injury [] Angry [] Fearful [] Anxious [] Often cries [] Exhaustion [] Unable to work [] Unable to attend restorationist [] Unable to walk/stand [] Unable to read [] Unable to drive [] Unable to eat/drink [] Unable to sleep [] Unable to be with family [] Patient intubated [] Other: Summary Time spent with patient
[2024-02-16] MEDS: aspirin 81 mg EC Tablet PO (09:47)
[2024-02-16] MEDS: sennosides-docusate Tablet 1 TAB PO (09:48)
[2024-02-16] MEDS: clopidogrel 75 mg Tablet PO (09:48)
[2024-02-16] MEDS: atorvastatin 40 mg Tablet 80 MG PO (09:50)
--- NOTE | 2024-02-16 12:31 | P.PN_ITS ---
Subjective 2 Subjective: seen this morning unable to move right side wants rehab Vitals/I&O/Wt Last Vital Signs Temp 98.6 F 02/16/24 11:33 Pulse 93 02/16/24 11:33 Resp 15 02/16/24 11:33 BP 131/67 02/16/24 11:33 Pulse Ox 93 02/16/24 11:33 O2 Del Method Room Air 02/16/24 11:33 02/15/24 02/16/24 02/16/24 22:59 06:59 14:59 Intake Total 240 / 240 570 / 570 Balance 240 / 240 570 / 570 Weight last 48 hrs Weight 45.359 kg Weight 43.998 kg Weight 43.998 kg Physical Exam 2 Narrative: sitting up in bed appearing comfortable. 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 unable to move right lower extremity at all. No dysarthria Pleasant cooperative S1, S2 lungs clear to ausculation b/l Data 02/16/24 04:38 02/16/24 04:38 A&P Assessment and plan (1) CVA (cerebral vascular accident): (2) Hypertensive emergency: Plan Acute CVA Ischemic in nature Likely anterior circulation related Recurrent symptoms NIH score is 6 Not a TNKase candidate her symptoms started 8 AM I will start patient on aspirin Plavix along high-dose statins Request PT OT and ST CT head unremarkable Previous CTA head and neck showed: 1. Partial occlusion or dissection of the cervical right vertebral artery of indeterminate acuity. 2. High-grade stenosis with near occlusion at the origin of the left vertebral artery. 3. 70% short segment stenosis of the right internal carotid artery origin. 4. Normal left internal carotid artery. 5. Incidental findings above Will request [id number], TSH pending, echo pending Will request records from [facility] As per the patient neurology recommended medical management Hypertensive emergency: Patient has been given labetalol I will add amlodipine and lisinopril Permissive hypertension for next 24 hours Full code Cardiac diet DVT prophylaxis added Patient is an active smoker, smokes less than half pack a day Will need extensive counseling PT/OT Disposition: Talked with social service coordinator. Refer to rehab. Attestations 2 Medical Necessity Statement*: Anticipating discharge within 48 hours Diagnoses CVA (cerebral vascular accident) I63.9 Hypertensive emergency I16.1
[2024-02-16 18:37] LABS: Anion Gap 14.4 (5-19); Blood Urea Nitrogen 21 mg/dL (8-23); Calcium 8.5 mg/dL (8.5-10.5); Carbon Dioxide 25 mmol/L (22-29); Chloride 100 mmol/L (98-107); Creatinine Clr Calc Pharmacy 27.9219; Glomerular Filtration Rate 37.5 mL/min (90-130); Glucose 162 mg/dL (65-115); Osmolality Calculated 289 mOsm/kg (285-295); Potassium 3.4 mmol/L (3.5-5.1); Sodium 136 mmol/L (136-145)
[2024-02-17] VITALS (7 sets, daily range): BP systolic 129–168; BP diastolic 50–83; PULSE 78–108; RESP 15–16; TEMP 36.6–36.9; O2SAT 91–94
[2024-02-17 06:00] LABS: Basophils # 0.1 10^3/uL (0.0-0.1); Basophils % 0.8 %; Eosinophils # 0.2 10^3/uL (0.0-0.8); Eosinophils % 2.4 %; Hematocrit 36.6 % (36-47); Lymphocytes # 2.7 10^3/uL (0.8-4.8); Lymphocytes % 38.4 %; Mean Corpuscular HGB Conc 34.2 g/dL (30-55); Mean Corpuscular Hemoglobin 29.4 pg (27-33); Mean Corpuscular Volume 86.1 fl (85-98); Mean Platelet Volume 9.5 fL (7.4-10.4); Monocytes # 0.5 10^3/uL (0.2-0.9); Monocytes % 6.8 %; Neutrophils # 3.66 10^3/uL (1.8-7.7); Neutrophils % 51.5 %; Nucleated Red Blood Cells % 0 %; Platelet Count 280 10^3/cmm (157-399); Red Blood Count 4.25 10^6/uL (3.85-5.65); Red Cell Distribution Width 12.6 % (12.1-15.1); White Blood Count 7.11 10^3/uL (3.29-11.43)
[2024-02-17 06:20] LABS: Anion Gap 14.4 (5-19); Blood Urea Nitrogen 20 mg/dL (8-23); Calcium 8.5 mg/dL (8.5-10.5); Carbon Dioxide 24 mmol/L (22-29); Chloride 103 mmol/L (98-107); Creatinine Clr Calc Pharmacy 26.0604; Glomerular Filtration Rate 34.6 mL/min (90-130); Glucose 96 mg/dL (65-115); Osmolality Calculated 288 mOsm/kg (285-295); Potassium 3.4 mmol/L (3.5-5.1); Sodium 138 mmol/L (136-145)
[2024-02-17] MEDS: aspirin 81 mg EC Tablet PO (08:31)
[2024-02-17] MEDS: lisinopril 10 mg Tablet PO (08:31)
[2024-02-17] MEDS: atorvastatin 40 mg Tablet 80 MG PO (08:31)
[2024-02-17] MEDS: sennosides-docusate Tablet 1 TAB PO (08:31)
[2024-02-17] MEDS: clopidogrel 75 mg Tablet PO (08:31)
--- NOTE | 2024-02-17 12:58 | P.PN_ITS ---
Subjective 2 Subjective: seen this morning baseline function R upper and lower extremity is returned she feels back to normal says was [place] [facility] no intervention is being planned family asking for another neuro referral records still [place] [facility] Vitals/I&O/Wt Last Vital Signs Temp 98.0 F 02/17/24 12:05 Pulse 108 H 02/17/24 12:05 Resp 16 02/17/24 12:05 BP 129/79 02/17/24 12:05 Pulse Ox 93 02/17/24 12:05 O2 Del Method Room Air 02/17/24 12:05 02/16/24 02/17/24 02/17/24 22:59 06:59 14:59 Intake Total 240 / 1050 360 / 1410 480 / 480 Balance 240 / 1050 360 / 1410 480 / 480 Weight last 48 hrs Weight 45.359 kg Weight 45.359 kg Weight 43.998 kg Weight 43.998 kg Physical Exam 2 Narrative: sitting up in bed appearing comfortable. Right hand it generalist weakness as compared to left able to move right leg and right arm. dramatic improvement compared to yesterday. Right-sided visual field defect improved No dysarthria Pleasant cooperative S1, S2 lungs clear to ausculation b/l Data 02/17/24 05:49 02/17/24 05:49 A&P Assessment and plan (1) CVA (cerebral vascular accident): (2) Hypertensive emergency: Plan Acute CVA Ischemic in nature Likely anterior circulation related Recurrent symptoms NIH score is 6 Not a TNKase candidate her symptoms started 8 AM I will start patient on aspirin Plavix along high-dose statins Request PT OT and ST CT head unremarkable Previous CTA head and neck showed: 1. Partial occlusion or dissection of the cervical right vertebral artery of indeterminate acuity. 2. High-grade stenosis with near occlusion at the origin of the left vertebral artery. 3. 70% short segment stenosis of the right internal carotid artery origin. 4. Normal left internal carotid artery. 5. Incidental findings above Will request [id number], TSH pending, echo pending Will request records from [facility] - STILL PENDING As per the patient neurology recommended medical management. Awaiting PT evaluation today. Discussed with patient, if rec by PT may send to SNF for rehab otherwise may DC home. Hypertensive emergency: Patient has been given labetalol I will add amlodipine and lisinopril Permissive hypertension for next 24 hours Full code Cardiac diet DVT prophylaxis added Patient is an active smoker, smokes less than half pack a day Will need extensive counseling PT/OT Disposition: Talked with rn social work. Refer to rehab. Attestations 2 Medical Necessity Statement*: Anticipating discharge within 48 hours Diagnoses CVA (cerebral vascular accident) I63.9 Hypertensive emergency I16.1
[2024-02-17] MEDS: enoxaparin 40 mg/0.4 mL Syringe SUBCUT (22:28)
[2024-02-18 04:00] VITALS: BP 160/77; PULSE 86; RESP 16; TEMP 36.7; O2SAT 95
[2024-02-18 07:42] VITALS: BP 177/73; PULSE 77; RESP 18; TEMP 36.6; O2SAT 93
[2024-02-18] MEDS: clopidogrel 75 mg Tablet PO (08:25)
[2024-02-18] MEDS: atorvastatin 40 mg Tablet 80 MG PO (08:25)
[2024-02-18] MEDS: lisinopril 10 mg Tablet PO (08:25)
[2024-02-18] MEDS: aspirin 81 mg EC Tablet PO (08:26)
[2024-02-18 08:58] VITALS: PULSE 77; RESP 18; O2SAT 93
--- NOTE | 2024-02-18 12:02 | PM.PN ---
Subjective Subjective: seen this morning no acute events overnight pt working with therapy awaiting snf placement will see vascular surgery as outpatient reviewed patient's dc summary from [facility] she was recommended to see vascular surgery and neurology as outpatient for further workup and management. Vitals/I&O/Wt Last Vital Signs Temp 97.8 F 02/18/24 07:42 Pulse 77 02/18/24 08:58 Resp 18 02/18/24 08:58 BP 177/73 02/18/24 07:42 Pulse Ox 93 02/18/24 08:58 O2 Del Method Room Air 02/18/24 08:58 02/17/24 02/18/24 02/18/24 22:59 06:59 14:59 Intake Total 240 / 720 480 / 1200 480 / 480 Balance 240 / 720 480 / 1200 480 / 480 Weight last 48 hrs Weight 45.359 kg Weight 45.359 kg Physical Exam Narrative: sitting up in recliner working with PT appearing comfortable. 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 dramatic improvement compared to yesterday. Right-sided visual field defect improved No dysarthria Pleasant cooperative S1, S2 lungs clear to ausculation b/l Data 02/17/24 05:49 02/17/24 05:49 A&P Assessment and plan (1) CVA (cerebral vascular accident): (2) Hypertensive emergency: Plan Acute CVA Ischemic in nature Likely anterior circulation related Recurrent symptoms NIH score is 6 Not a TNKase candidate her symptoms started 8 AM I will start patient on aspirin Plavix along high-dose statins Request PT OT and ST CT head unremarkable Previous CTA head and neck showed: 1. Partial occlusion or dissection of the cervical right vertebral artery of indeterminate acuity. 2. High-grade stenosis with near occlusion at the origin of the left vertebral artery. 3. 70% short segment stenosis of the right internal carotid artery origin. 4. Normal left internal carotid artery. 5. Incidental findings above Will request [id number], TSH pending, echo pending Will request records from [facility] - STILL PENDING As per the patient neurology recommended medical management. 02/18/2024 Reviewed dc summary from [facility] - f/u with neurology and vascular surgery as outpatient - plan for snf placement monday for rehab as per PT recs - patient awaiting placement. - continue on aspiriin, plavix , atorvastatin x90 days as per paperwork from [facility] - event monitor also recommended to r/o underlying afib. patient did not have that setup yet. will setup [place] [facility] [place]. Hypertensive emergency: Patient has been given labetalol I will add amlodipine and lisinopril Permissive hypertension for next 24 hours Full code Cardiac diet DVT prophylaxis added Patient is an active smoker, smokes less than half pack a day Will need extensive counseling PT/OT Disposition: Talked with director social service. Refer to rehab. Attestations Medical Necessity Statement*: awaiting placement to snf rehab Diagnoses CVA (cerebral vascular accident) I63.9 Hypertensive emergency I16.1
--- NOTE | 2024-02-18 12:41 | PM.DCS ---
Discharge Providers Date of Admission: 02/16/24 10:00 Date of Discharge: February 18, 2024 Attending Provider at Admission: Lizzy Contreras MD Attending Provider at Discharge: Genie Sprague MD Primary Care Provider: Delio Riddle DO Diagnoses at Discharge Discharge Diagnosis (1) CVA (cerebral vascular accident): Status: Acute (2) Hypertensive emergency: Status: Acute Reason for Visit Reason for Visit: right arm and leg weakness Hospital Course Hospital Course Patient presented with right arm and leg weakness which self resolved. Patient does have vertebral artery stenosis almost complete occlusion. At previous visit last month she was transferred to [facility] in [place] and was seen by hospitalist and stroke team there. No intervention was performed. tPA was not given. Patient was discharged home with medical management to follow-up with neurology and vascular surgery outpatient. Patient is unable to follow with them yet and does not have an appointment. Discharge summary from [facility] was reviewed. Patient was recommended rehab here however since she was doing very well PT also recommended that if she can be with somebody and use a walker and wheelchair we may proceed to discharge home. Patient's daughter will assume her care going forward. Daughter will take her home with her and patient does have a walker. Patient has been advised to follow-up with neurology and vascular surgery outpatient for further management and workup. She is to go home on aspirin atorvastatin, clopidogrel and metoprolol titrate. Patient also needs an event monitor at discharge as per recommendations from [facility] to rule out atrial fibrillation. I will put in a request for that however it is scented today and cannot be set up today. Patient will receive a call from hospital to have that scheduled. Physical Exam Narrative: sitting up in recliner working with PT appearing comfortable. 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 dramatic improvement compared to yesterday. Right-sided visual field defect improved No dysarthria Pleasant cooperative S1, S2 lungs clear to ausculation b/l Discharge Data Studies Completed and Pending Completed Studies During Hospitalization Category Date Time Status CT head thrombolytic [id number] Stat Cat Scan 02/15/24 20:13 Completed CTA head neck [CT angio headneck* [id number]] Stat Cat Scan 02/15/24 21:06 Completed XR chest 1V portable [id number] Stat Exams 02/15/24 20:13 Completed Pending at discharge Category Date Time Status Drug Screen, Urine Stat Lab 02/15/24 20:13 Ordered Urinalysis Stat Lab 02/15/24 20:13 Ordered CV. echo complete* [id number] Routine Ultrasound 02/15/24 22:51 Taken Radiology Impressions Chest X-Ray 02/15/24 20:13 IMPRESSION: No acute findings. Head CT 02/15/24 20:13 IMPRESSION: No acute intracranial abnormality. ASSESSMENT: ASPECTS ([place] Stroke Program Early CT Score) is 10. Head/Neck CTA 02/15/24 21:06 IMPRESSION: 1. No change from 01/10/2024. 2. No large vessel stenosis or occlusion. 3. Vascular coils in the basilar tip obscure the proximal posterior cerebral arteries which are patent more distally. IMPRESSION: 1. No change from 01/10/2024. 2. Unchanged occlusion or dissection of the cervical right vertebral artery. 3. High-grade stenosis with near occlusion at the origin of the left vertebral artery. 4. 70-80% short segment stenosis of the right internal carotid artery origin. 5. Normal left internal carotid artery. 6. Incidental findings above. REFERENCES: NASCET CRITERIA. The degree of stenosis in the cervical segment of the internal carotid artery is based on NASCET criteria. Normal is no stenosis. Mild is less than 50% stenosis. Moderate is 50-69% stenosis. Severe is 70% to 99% stenosis. Total occlusion is no detectable patent lumen. Laboratory Results WBC 7.11 10^3/uL (3.29-11.43) 02/17/24 05:49 RBC 4.25 10^6/uL (3.85-5.65) 02/17/24 05:49 Hgb 12.50 g/dL (11.27-16.99) 02/17/24 05:49 Hct 36.6 % (36-47) 02/17/24 05:49 MCV 86.1 fl (85-98) 02/17/24 05:49 MCH 29.4 pg (27-33) 02/17/24 05:49 MCHC 34.2 g/dL (30-55) 02/17/24 05:49 RDW 12.6 % (12.1-15.1) 02/17/24 05:49 Plt Count 280 10^3/cmm (157-399) 02/17/24 05:49 MPV 9.5 fL (7.4-10.4) 02/17/24 05:49 Neut % (Auto) 51.5 % 02/17/24 05:49 Lymph % (Auto) 38.4 % 02/17/24 05:49 [place] % (Auto) 6.8 % 02/17/24 05:49 Eos % (Auto) 2.4 % 02/17/24 05:49 Baso % (Auto) 0.8 % 02/17/24 05:49 Neut # (Auto) 3.66 10^3/uL (1.8-7.7) 02/17/24 05:49 Lymph # (Auto) 2.7 10^3/uL (0.8-4.8) 02/17/24 05:49 [place] # (Auto) 0.5 10^3/uL (0.2-0.9) 02/17/24 05:49 Eos # (Auto) 0.2 10^3/uL (0.0-0.8) 02/17/24 05:49 Baso # (Auto) 0.1 10^3/uL (0.0-0.1) 02/17/24 05:49 Nucleated RBC % (auto) 0 % 02/17/24 05:49 Nucleated RBCs # 0.0 /100WBC 02/17/24 05:49 PT 12.70 SECONDS (12.1-14.9) 02/15/24 20:14 INR 0.92 (0.8-1.2) 02/15/24 20:14 APTT 33.3 SECONDS (23.9-36.7) 02/15/24 20:14 Sodium 138 mmol/L (136-145) 02/17/24 05:49 Potassium 3.4 mmol/L (3.5-5.1) L 02/17/24 05:49 Chloride 103 mmol/L (98-107) 02/17/24 05:49 Carbon Dioxide 24 mmol/L (22-29) 02/17/24 05:49 Anion Gap 14.4 (5-19) 02/17/24 05:49 BUN 20 mg/dL (8-23) 02/17/24 05:49 Creatinine 1.5 mg/dL (0.5-0.9) H 02/17/24 05:49 GFR Calculation 34.6 mL/min (90-130) L 02/17/24 05:49 Glucose 96 mg/dL (65-115) 02/17/24 05:49 POC Glucose 160 mg/dL (70-110) H 02/15/24 20:12 Estimat Average Glucose 97 02/15/24 20:14 Hemoglobin A1c 5.0 % (4.0-6.0) 02/15/24 20:14 Calculated Osmolality 288 mOsm/kg (285-295) 02/17/24 05:49 Calcium 8.5 mg/dL (8.5-10.5) 02/17/24 05:49 Phosphorus 4.6 mg/dL (2.5-4.5) H 02/16/24 04:38 Magnesium 2.0 mg/dL (1.7-2.3) 02/17/24 05:49 Total Bilirubin 0.5 mg/dL (0.15-1.2) 02/15/24 20:14 AST 44 U/L (0-32) H 02/15/24 20:14 ALT 39 U/L (0-33) H 02/15/24 20:14 Alkaline Phosphatase 104 U/L (35-105) 02/15/24 20:14 C-Reactive Protein 3.0 mg/L (0.0-4.9) 02/16/24 04:38 Total Protein 8.1 g/dL (6.6-8.7) 02/15/24 20:14 Albumin 4.5 g/dL (3.5-5.2) 02/15/24 20:14 Globulin 3.6 g/dL (1.3-4.6) 02/15/24 20:14 Vitamin B12 717 pg/mL (232-1245) 02/15/24 20:14 Vitals Last Vital Signs Temp 97.8 F 02/18/24 07:42 Pulse 77 02/18/24 08:58 Resp 18 02/18/24 08:58 BP 177/73 02/18/24 07:42 Pulse Ox 93 02/18/24 08:58 O2 Del Method Room Air 02/18/24 08:58 Discharge Plan Discharge Patient Disposition: Home Condition: Stable Prescriptions: New atorvastatin 40 mg Tablet 80 mg PO DAILY Qty: 30 0RF clopidogrel 75 mg Tablet 75 mg PO DAILY Qty: 30 0RF aspirin 81 mg Tablet,Delayed Release (Dr/Ec) 81 mg PO DAILY Qty: 30 0RF lisinopril 10 mg Tablet 20 mg PO DAILY Qty: 30 0RF Continued albuterol sulfate 90 mcg/actuation HFA aerosol inhaler 2 puff inhalation QID PRN (Reason: shortness of breath or wheezing) Qty: 6.7 0RF bupropion HCl 150 mg tablet sustained-release 12 hr 150 mg PO QAM metoprolol tartrate 25 mg tablet 25 mg PO BID amlodipine 5 mg tablet 5 mg PO DAILY Qty: 30 0RF Discontinued atorvastatin 40 mg tablet 40 mg PO DAILY hydralazine 25 mg tablet 25 mg PO TID Discharge Orders: Discharge Order (Routine); Ordered 02/18/24 Ordered By: Genie Sprague Referrals: Sheryl Bay MD [Physician] - 4-7 days (Please call [phone] tomorrow to set up an appointment to see Dr. Bay. ) Lucrecia Franco APN [Referring] - 02/27/24 10:00 am Ellis Gil MD [Physician] - 4-7 days (Please call [phone] tomorrow to set up an appointment to see Dr. Gil.) Discharge Diet: Cardiac Discharge Activity: Limit activity as instructed, Use walker/crutches as instructed and As per PT/OT instructions Patient Instructions: Lisinopril (By mouth), Aspirin (By mouth), Atorvastatin (By mouth) (Lipitor, Atorvaliq), Clopidogrel (By mouth) (Plavix), Chronic Hypertension (DC), Hypertensive Crisis (DC), Stroke (DC), Opioid Safety, Pain Management Activity Restrictions/Additional Instructions: Please ensure you follow up with vascular surgery and neurology as per your discharge paperwork from [facility]. Discharge Attestations Time Spent in Discharge Care*: less than 30 min Quality Metrics Clinical Quality Measures [ No reported AMI, CVA or VTE this stay] Coding Level of Care Code Acute Code for [facility] Fwd Diagnoses CVA (cerebral vascular accident) I63.9 Hypertensive emergency I16.1
[2024-02-18 13:33] VITALS: PULSE 77; RESP 18; O2SAT 93
== END 2024-02-18 13:33 | disposition home or self-care (01) | DRG 65 ==
LOC: ER 21:10 → MEDSURG 21:38
PROVIDERS: Admitting Provider Internal Medicine; Emergency Provider Internal Medicine; PCP Internal Medicine; Visit Provider Internal Medicine
DX: I63.9 Cerebral infarction, unspecified (principal); G81.91 Hemiplegia, unspecified affecting right dominant side; I16.1 Hypertensive emergency; R29.706 NIHSS score 6; Z72.0 Tobacco use; I65.03 Occlusion and stenosis of bilateral vertebral arteries; I65.21 Occlusion and stenosis of right carotid artery; Z86.73 Personal history of transient ischemic attack (TIA), and cerebral infarction without residual deficits
CPT/HCPCS: 36415; 36416; 70450; 70496; 70498; 71045; 80048; 80053; 82607; 82962; 83036; 83735; 84100; 85025; 85610; 85730; 86140; 92523; 92610; 93005; 93306; 96372; 96374; 96375; 97110; 97116; 97161; 97166; 97530; 97535; 99285; G0378; J0360; J1650; J3480; J3490; Q9967

== ENCOUNTER → 2024-02-26 13:12 | Outpatient (BNVA) | payer MEDICARE, SELFPAY | PROVIDERS: PCP Internal Medicine; Visit Provider Thoracic Surgery (Cardiothoracic Vascular Surgery) | DX: I65.21 Occlusion and stenosis of right carotid artery (principal); F17.210 Nicotine dependence, cigarettes, uncomplicated | CPT/HCPCS: 99203 ==

== ENCOUNTER 2024-03-11 15:15 | Outpatient (CLI) | payer MEDICARE, SELFPAY ==
--- NOTE | 2024-03-11 15:21 | XRR_ITS ---
PROCEDURE INFORMATION: Exam: XR Lumbosacral Spine Exam date and time: 03/11/2024 3:28 PM Age: 68 years old Clinical indication: Injury or trauma; Fall; Blunt trauma (contusions or hematomas); Injury date: 1 week ago; Additional info: Lumbosacral pain TECHNIQUE: Imaging protocol: Radiologic exam of the lumbosacral spine. Views: 2 or 3 views. COMPARISON: No relevant prior studies available. FINDINGS: Bones/joints: Prominent scoliosis is noted along with associated multilevel vertebral body spurring, degenerative disc disease and facet arthropathy. No fracture or subluxation noted. Soft tissues: Unremarkable. XR/XR lumbar spine 2-3V* [id number] IMPRESSION: Scoliosis with multilevel arthritic changes
== END 2024-03-11 15:16 | disposition home or self-care (01) ==
LOC: RAD 15:17
PROVIDERS: Visit Provider Nurse Practitioner Family
DX: M41.87 Other forms of scoliosis, lumbosacral region (principal); W19.XXXA Unspecified fall, initial encounter; M51.37 Other intervertebral disc degeneration, lumbosacral region; M47.817 Spondylosis without myelopathy or radiculopathy, lumbosacral region
CPT/HCPCS: 72100

== ENCOUNTER → 2024-04-01 07:55 | Outpatient (BNVA) | payer MEDICARE, SELFPAY | PROVIDERS: PCP Nurse Practitioner Family; Visit Provider Thoracic Surgery (Cardiothoracic Vascular Surgery) | DX: I65.21 Occlusion and stenosis of right carotid artery (principal); Z72.0 Tobacco use | CPT/HCPCS: 99213 ==

== ENCOUNTER 2024-09-10 10:56 | Inpatient (IN) | payer MEDICARE, SELFPAY ==
[2024-09-10] VITALS (9 sets, daily range): BP systolic 118–152; BP diastolic 49–82; PULSE 57–84; RESP 16–18; TEMP 36.3–36.6; O2SAT 95–97; BMI 18.9; BMI 21.8
--- NOTE | 2024-09-10 11:39 | XR_ITS ---
WS: [id number] Exam: XR hip RT 2-3V wo/w pel* [id number] Date/Time of Exam: 09/10/2024 11:48 AM Reason For Exam: fall There is an intertrochanteric fracture of the RIGHT hip. No significant displacement noted. Mild DJD of the joint compartment. XR/XR hip RT 2-3V wo/w pel* [id number] IMPRESSION: 1. Nondisplaced intertrochanteric fracture of the RIGHT hip.
--- NOTE | 2024-09-10 12:00 | XR_ITS ---
WS: [id number] Exam: XR chest 1V portable [id number] Date/Time of Exam: 09/10/2024 12:04 PM Reason For Exam: PAIN Comparison 02/15/2024. The lungs are fully inflated and clear. Cardiomediastinal silhouette is normal no pleural effusions. Bony structures are intact. Old LEFT clavicle fracture. Mild levoscoliosis of the T-spine. XR/XR chest 1V portable [id number] IMPRESSION: 1. No acute finding.
--- NOTE | 2024-09-10 12:33 | ED_ITS ---
HPI - Extremity Problem 2 General: Chief complaint: Extremity Injury, Lower Stated complaint: thinks she broke hip Time Seen by Provider: 09/10/24 12:20 History of Present Illness: 69-year-old female presents emergency ro om she fell last night in her kitchen landed on her right hip she has severe right hip pain. She stated home overnight she did try to get around a little bit but was unable to stand finally presented to the emergency room via private vehicle complaining of hip pain her family brought her in. Patient states she took a muscle relaxer to help with her pain last night. She denies any other injury denies striking her head denies chest pain or abdominal pain. Associated symptoms: Deny chest pain, fever(s) or rash Related Data Home Medications Medication Instructions Recorded Confirmed metoprolol tartrate 25 mg tablet 25 mg PO BID 02/16/24 09/10/24 bupropion HCl 100 mg tablet,12 hr 100 mg PO DAILY 04/01/24 09/10/24 sustained-release (Wellbutrin SR) hydrochlorothiazide 25 mg tablet 25 mg PO DAILY 04/01/24 09/10/24 hydralazine 25 mg tablet 25 mg PO DAILY 09/10/24 09/10/24 lisinopril 20 mg tablet 20 mg PO DAILY 09/10/24 09/10/24 omeprazole 20 mg capsule,delayed 20 mg PO DAILY 09/10/24 09/10/24 release Previous Rx's Medication Instructions Recorded albuterol sulfate 90 mcg/actuation 2 puff inhalation QID PRN 01/01/24 aerosol inhaler shortness of breath or wheezing #6.7 grams amlodipine 5 mg tablet 5 mg PO DAILY #30 tabs 02/18/24 atorvastatin 40 mg tablet 80 mg (2 x 40 mg) PO DAILY #30 tabs 02/18/24 clopidogrel 75 mg tablet 75 mg PO DAILY #30 tabs 02/18/24 aspirin 325 mg capsule 325 mg PO DAILY #30 caps 09/12/24 hydrocodone 5 mg-acetaminophen 325 1 tab PO Q4H PRN Moderate To 09/12/24 mg tablet Severe Pain 1st #10 tabs Allergies Allergy/AdvReac Type Severity Reaction Status Date / Time No Known Allergies Allergy Unverified 04/01/24 08:16 Review of Systems 2 Const: Denies: fever(s) or chills Card: Denies: chest pain Resp: Denies: dyspnea GI: Denies: abdominal pain : Denies: dysuria, urinary frequency or urinary urgency Musc: Reports: joint pain (Right hip); Denies: neck pain or back pain Skin/Breast: Denies: rash PFSH ED 2 PFSH: Medical History (Updated 09/13/24 @ 06:50 by Alex Watson DO) Paroxysmal atrial fibrillation Noted post R CEA 07/2024, on one EKG 12/2023, NOT seen on 21 day holter in 02/2024 History of fracture of wrist left Dyslipidemia History of Holter monitoring 02/2024 21 day monitorin, baseline sinus jose david at 55 bpm, occasional supraventricular and rare ventricular ectopic beats. No atrial arrhythmias noted. Hypertension Posterior reversible encephalopathy syndrome (PRES) 01/2024 COPD (chronic obstructive pulmonary disease) Occlusion of both vertebral arteries History of echocardiogram 02/2024 [facility] EF 60-65%, no R>L shunt, mild MR, mild TR, grade 1 diastolic dysfunction Atrial arrhythmia Brain aneurysm 2015 and 2016, treated with stents/coils Carotid stenosis, right 12/2023 70%-80%, underwent right CEA in 07/2024 Hypertensive emergency 12/2023 CVA (cerebral vascular accident) 12/2023 right hemiparesis Surgical History (Updated 09/13/24 @ 00:00 by YAJAIRA Greene) History of right-sided carotid endarterectomy (08/21/24) with EnRoute transcarotid stent placement, done at [facility] H/O hand surgery right hand S/P cerebral aneurysm repair Family History (Updated 09/10/24 @ 15:29 by Khadijah Marie MD) Brother Cancer Father CAD (coronary artery disease) Mother Dementia Family/Other Anesthesia complication niece Denies family history of Diabetes Bleeding disorder Social History (Updated 09/10/24 @ 15:29 by Khadijah Marie MD) Smoking and tobacco/nicotine status: current every day tobacco/nicotine user cigarettes Packs smoked per day: 1 Years cigarettes smoked: 50 [ Other cigarette details: trying to quit] Alcohol intake: former Substance/Drug Use: current Other substance/drug use details: Occasional THC gummies Lives independently: No Household members: family Housing: House Marital status: Single Number of children: 2 Pets and animals: Yes Pets & animals: cat(s) and dog(s) Physical Exam 2 Const: COMMON NORMALS: no acute distress GENERAL APPEARANCE: cooperative and comfortable ORIENTATION/CONSCIOUSNESS: Yes awake, Yes oriented to person, Yes oriented to place and Yes oriented to time HENMT: COMMON NORMALS: normocephalic, atraumatic and hearing grossly normal bilaterally HEAD & SCALP: normocephalic and atraumatic Resp: COMMON NORMALS: normal respiratory effort, No retractions, No use of accessory muscles and clear to auscultation bilaterally AUSCULTATION: clear to auscultation bilaterally Cardio: COMMON NORMALS: regular rate, regular rhythm and No murmurs present (Cardio) RATE: regular rate RHYTHM: regular rhythm GI: COMMON NORMALS: Soft to palpation and No hepatosplenomegaly present A USCULTATION: Yes normoactive bowel sounds PALPATION: Yes Soft to palpation, No Tenderness to palpation present (GI), No Guarding due to palpation present (GI) and Yes No hepatosplenomegaly present Extremity: COMMON NORMALS: normal to inspection, capillary refill normal, no clubbing, cyanosis or edema, no calf tenderness and no pedal edema OTHER: Right leg externally rotated Neuro: SENSORIUM/ORIENTATION: Yes oriented to person, Yes oriented to place and Yes oriented to time Skin: COMMON NORMALS: no rashes or lesions noted GENERAL SKIN EXAM: no rashes or lesions noted Course 2 Vital Signs: Vital signs: Vital Signs Temperature 97.6 F 09/12/24 14:03 Pulse Rate 78 09/12/24 14:03 Respiratory Rate 17 09/12/24 14:03 Blood Pressure 117/62 09/12/24 14:03 Pulse Oximetry 92 09/12/24 14:03 Oxygen Delivery Me thod Room Air 09/12/24 10:33 Oxygen Flow Rate 4 09/11/24 15:50 MDM - Extremity (Nontraumatic) Medical Decision Making Right intertrochanteric hip fracture discussed with hospitalist [facility] will admit orders written Medical Records I reviewed the patient's medical records. Lab Data I reviewed the patient's lab results. 09/12/24 05:06 09/12/24 05:06 Radiology Impressions Chest X-Ray 09/10/24 12:00 IMPRESSION: 1. No acute finding. Knee X-Ray 09/11/24 16:50 IMPRESSION: No acute findings. Laboratory Results WBC 11.80 10^3/uL (3.29-11.43) H 09/10/24 12:42 RBC 4.65 10^6/uL (3.85-5.65) 09/10/24 12:42 Hgb 14.10 g/dL (11.27-16.99) 09/10/24 12:42 Hct 44.3 % (36-47) 09/10/24 12:42 MCV 95.3 fl (85-98) 09/10/24 12:42 MCH 30.3 pg (27-33) 09/10/24 12:42 MCHC 31.8 g/dL (30-55) 09/10/24 12:42 RDW 12.3 % (12.1-15.1) 09/10/24 12:42 Plt Count 317 10^3/cmm (157-399) 09/10/24 12:42 MPV 9.9 fL (7.4-10.4) 09/10/24 12:42 Neut % (Auto) 68.6 % 09/10/24 12:42 Lymph % (Auto) 20.7 % 09/10/24 12:42 [place] % (Auto) 8.9 % 09/10/24 12:42 Eos % (Auto) 0.8 % 09/10/24 12:42 Baso % (Auto) 0.6 % 09/10/24 12:42 Neut # (Auto) 8.10 10^3/uL (1.8-7.7) H 09/10/24 12:42 Lymph # (Auto) 2.4 10^3/uL (0.8-4.8) 09/10/24 12:42 [place] # (Auto) 1.1 10^3/uL (0.2-0.9) H 09/10/24 12:42 Eos # (Auto) 0.1 10^3/uL (0.0-0.8) 09/10/24 12:42 Baso # (Auto) 0.1 10^3/uL (0.0-0.1) 09/10/24 12:42 Nucleated RBC % (auto) 0 % 09/10/24 12:42 Nucleated RBCs # 0.0 /100WBC 09/10/24 12:42 PT 13.50 SECONDS (12.1-14.9) 09/10/24 12:56 INR 1.00 (0.8-1.2) 09/10/24 12:56 Sodium 135 mmol/L (136-145) L 09/10/24 12:42 Potassium 4.3 mmol/L (3.5-5.1) 09/10/24 12:42 Chloride 97 mmol/L (98-107) L 09/10/24 12:42 Carbon Dioxide 24 mmol/L (22-29) 09/10/24 12:42 Anion Gap 18.3 (5-19) 09/10/24 12:42 BUN 39 mg/dL (8-23) H 09/10/24 12:42 Creatinine 2.7 mg/dL (0.5-0.9) H 09/10/24 12:42 GFR Calculation 17.5 mL/min (90-130) L 09/10/24 12:42 Glucose 118 mg/dL (65-115) H 09/10/24 12:42 Calculated Osmolality 290 mOsm/kg (285-295) 09/10/24 12:42 Calcium 9.7 mg/dL (8.5-10.5) 09/10/24 12:42 Total Bilirubin 0.6 mg/dL (0.15-1.2) 09/10/24 12:42 AST 23 U/L (0-32) 09/10/24 12:42 ALT 19 U/L (0-33) 09/10/24 12:42 Alkaline Phosphatase 79 U/L (35-105) 09/10/24 12:42 Creatine Kinase 113 U/L (26-192) 09/10/24 12:42 Total Protein 7.3 g/dL (6.6-8.7) 09/10/24 12:42 Albumin 4.0 g/dL (3.5-5.2) 09/10/24 12:42 Globulin 3.3 g/dL (1.3-4.6) 09/10/24 12:42 All radiology interpretation(s) finalized by discharge Discharge Plan Discharge Patient Disposition: Admitted As Inpatient Admit Provider: Khadijah Marie Clinical Impression: Closed intertrochanteric fracture of right hip, COPD (chronic obstructive pulmonary disease), History of stroke, Acute kidney injury, Paroxysmal atrial fibrillation Condition: Stable Coding Level of Care Code ED Ticketing Agent for Soledad Marrero
--- NOTE | 2024-09-10 12:37 | P.HP_ITS ---
Providers/Chief Complaint Admitting Physician: Khadijah Marie MD Primary Care Provider: Lucrecia Franco APN Chief Complaint: thinks she broke hip History of Present Illness Debbie Peres is a 69 year old female presenting with right-sided hip pain following a fall yesterday. The fall occurred while she was turning after placing food on the table for her grandchildren. She landed on her right hip and was unable to get up. She laid on the ground about 30 minutes before her family was able to get her moved. She refused to seek medical evaluation yesterday. Took some muscle relaxers she had at home. Managed to get some sleep. But pain and inability to walk persisted and her daughters forced her to come to ER. She has persistent hip pain, severe with any attempted movement, and limited mobility after the incident. In the ER, right intertrochanteric fracture was confirmed via imaging. Dr Jansen was contacted and plan is for surgical repair tomorrow. Hospitalist contacted for admission. Recent significant history as relates to pre-operative evaluation includes stroke in December of this year, which left her with right hemiparesis. This has improved since then, but she has had persistent gait instability/balance issues, especially when moving quickly. She was found at the time to have right carotid stenosis, not left as might expect, and ultimately underwent right carotid endarterectomy with stenting on August 21, 20 days ago. She is on aspirin and plavix with strict instructions not to miss these medications, nor her statin. She did experience post op paroxysmal atrial fibrillation, but had a 21 day holter in February 2024 that showed no atrial arrhythmias. Lab today reveals elevated creatinine at 2.7, up from 1.4 08/21/24. CK level normal as is potassium,. Chronically on HCTZ and lisinopril with no recent dose changes. Her blood pressure has been stable, though does have a history of hypertensive emergency/PRES syndrome. COPD stable with baseline daily cough. Still smokes. No recent chest pain or increase in shortness of breath. No changes in bowel or bladder function. No reported bleeding. No issues with edema. Chronic cough not worse lately. She had no anesthesia complications 08/21/24 under general anesthesia. No recent fever. Tries to stay active. Has a cane as needed. Lives with family. Review of Systems General: Reports: Other (ROS as per HPI or as otherwise noted here) Medications/Allergies Home Medications Medication Instructions Recorded Confirmed Last Taken Type albuterol sulfate 90 mcg/actuation 2 puff inhalation QID PRN 01/01/24 09/10/24 Unknown Rx aerosol inhaler shortness of breath or wheezing #6.7 grams metoprolol tartrate 25 mg tablet 25 mg PO BID 02/16/24 09/10/24 09/10/24 07:00 History amlodipine 5 mg tablet 5 mg PO DAILY #30 tabs 02/18/24 09/10/24 09/10/24 07:00 Rx aspirin 81 mg tablet,delayed 81 mg PO DAILY #30 tabs 02/18/24 09/10/24 09/10/24 07:00 Rx release atorvastatin 40 mg tablet 80 mg (2 x 40 mg) PO DAILY #30 tabs 02/18/24 09/10/24 09/10/24 07:00 Rx clopidogrel 75 mg tablet 75 mg PO DAILY #30 tabs 02/18/24 09/10/24 09/10/24 07:00 Rx bupropion HCl 100 mg tablet,12 hr 100 mg PO DAILY 04/01/24 09/10/24 09/10/24 07:00 History sustained-release (Wellbutrin SR) hydrochlorothiazide 25 mg tablet 25 mg PO DAILY 04/01/24 09/10/24 09/10/24 07:00 History hydralazine 25 mg tablet 25 mg PO DAILY 09/10/24 09/10/24 09/10/24 07:00 History lisinopril 20 mg tablet 20 mg PO DAILY 09/10/24 09/10/24 09/10/24 07:00 History omeprazole 20 mg capsule,delayed 20 mg PO DAILY 09/10/24 09/10/24 09/10/24 07:00 History release Allergies Allergy/AdvReac Type Severity Reaction Status Date / Time No Known Allergies Allergy Unverified 04/01/24 08:16 PFSH Acute PFSH: Medical History (Updated 09/10/24 @ 15:36 by Khadijah Marie MD) Paroxysmal atrial fibrillation Noted post R CEA 07/2024, on one EKG 12/2023, NOT seen on 21 day holter in 02/2024 History of fracture of wrist left Dyslipidemia History of Holter monitoring 02/2024 21 day monitorin, baseline sinus jose david at 55 bpm, occasional supraventricular and rare ventricular ectopic beats. No atrial arrhythmias noted. Hypertension Posterior reversible encephalopathy syndrome (PRES) 01/2024 COPD (chronic obstructive pulmonary disease) Occlusion of both vertebral arteries History of echocardiogram 02/2024 [facility] EF 60-65%, no R>L shunt, mild MR, mild TR, grade 1 diastolic dysfunction Atrial arrhythmia Brain aneurysm 2015 and 2016, treated with stents/coils Carotid stenosis, right 12/2023 70%-80%, underwent right CEA in 07/2024 Hypertensive emergency 12/2023 CVA (cerebral vascular accident) 12/2023 right hemiparesis Surgical History (Updated 09/10/24 @ 15:02 by Khadijah Marie MD) History of right-sided carotid endarterectomy (08/21/24) with EnRoute transcarotid stent placement, done at [facility] H/O hand surgery right hand S/P cerebral aneurysm repair Family History (Updated 09/10/24 @ 15:29 by Khadijah Marie MD) Brother Cancer Father CAD (coronary artery disease) Mother Dementia Family/Other Anesthesia complication niece Denies family history of Diabetes Bleeding disorder Social History (Updated 09/10/24 @ 15:29 by Khadijah Marie MD) Smoking and tobacco/nicotine status: current every day tobacco/nicotine user cigarettes Packs smoked per day: 1 Years cigarettes smoked: 50 Number of cigarettes per day: 6-10 [ Other cigarette details: trying to quit] Alcohol intake: former Substance/Drug Use: current Other substance/drug use details: Occasional THC gummies Lives independently: No Household members: family Housing: House Marital status: Single Number of children: 2 Pets and animals: Yes Pets & animals: cat(s) and dog(s) Vitals/I&O/Wt Last Vital Signs Temp 97.7 F 09/10/24 11:06 Pulse 65 09/10/24 11:06 Resp 16 09/10/24 11:06 BP 118/77 09/10/24 11:06 Pulse Ox 97 09/10/24 11:06 O2 Del Method Room Air 09/10/24 11:06 Weight last 48 hrs Weight 43.998 kg Physical Exam Narrative: Patient is awake and alert. Able to provide history. Normocephalic. Extraocular movements are intact. Mucous membranes are slightly dry. Poor dentition with broken and few remaining teeth. Neck is supple with right carotid endarterectomy scar still with glue from surgical procedure August 21. Healing well. Occasional mildly productive cough. Lungs are clear to auscultation however on examination without any rales rhonchi or wheezes noted. Cardiovascular exam reveals a bradycardic but regular rhythm. Abdomen is soft, nontender with positive bowel sounds. Right hip is tender with palpation and any amount of movement but no external bruising is visible on the portions of the hip I can see. Posterior side not visualized. There is some bruising at the right elbow. Right lower extremity is externally rotated and shortened compared to the left. No pretibial edema noted. Brisk capillary refill both f eet. 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 Data Other Labs: Radiology Impressions Hip/Pelvis X-Ray 09/10/24 11:39 IMPRESSION: 1. Nondisplaced intertrochanteric fracture of the RIGHT hip. Chest X-Ray 09/10/24 12:00 IMPRESSION: 1. No acute finding. Laboratory Results WBC 11.80 10^3/uL (3.29-11.43) H 09/10/24 12:42 RBC 4.65 10^6/uL (3.85-5.65) 09/10/24 12:42 Hgb 14.10 g/dL (11.27-16.99) 09/10/24 12:42 Hct 44.3 % (36-47) 09/10/24 12:42 MCV 95.3 fl (85-98) 09/10/24 12:42 MCH 30.3 pg (27-33) 09/10/24 12:42 MCHC 31.8 g/dL (30-55) 09/10/24 12:42 RDW 12.3 % (12.1-15.1) 09/10/24 12:42 Plt Count 317 10^3/cmm (157-399) 09/10/24 12:42 MPV 9.9 fL (7.4-10.4) 09/10/24 12:42 Neut % (Auto) 68.6 % 09/10/24 12:42 Lymph % (Auto) 20.7 % 09/10/24 12:42 Johnston % (Auto) 8.9 % 09/10/24 12:42 Eos % (Auto) 0.8 % 09/10/24 12:42 Baso % (Auto) 0.6 % 09/10/24 12:42 Neut # (Auto) 8.10 10^3/uL (1.8-7.7) H 09/10/24 12:42 Lymph # (Auto) 2.4 10^3/uL (0.8-4.8) 09/10/24 12:42 Johnston # (Auto) 1.1 10^3/uL (0.2-0.9) H 09/10/24 12:42 Eos # (Auto) 0.1 10^3/uL (0.0-0.8) 09/10/24 12:42 Baso # (Auto) 0.1 10^3/uL (0.0-0.1) 09/10/24 12:42 Nucleated RBC % (auto) 0 % 09/10/24 12:42 Nucleated RBCs # 0.0 /100WBC 09/10/24 12:42 PT 13.50 SECONDS (12.1-14.9) 09/10/24 12:56 INR 1.00 (0.8-1.2) 09/10/24 12:56 Sodium 135 mmol/L (136-145) L 09/10/24 12:42 Potassium 4.3 mmol/L (3.5-5.1) 09/10/24 12:42 Chloride 97 mmol/L (98-107) L 09/10/24 12:42 Carbon Dioxide 24 mmol/L (22-29) 09/10/24 12:42 Anion Gap 18.3 (5-19) 09/10/24 12:42 BUN 39 mg/dL (8-23) H 09/10/24 12:42 Creatinine 2.7 mg/dL (0.5-0.9) H 09/10/24 12:42 GFR Calculation 17.5 mL/min (90-130) L 09/10/24 12:42 Glucose 118 mg/dL (65-115) H 09/10/24 12:42 Calculated Osmolality 290 mOsm/kg (285-295) 09/10/24 12:42 Calcium 9.7 mg/dL (8.5-10.5) 09/10/24 12:42 Total Bilirubin 0.6 mg/dL (0.15-1.2) 09/10/24 12:42 AST 23 U/L (0-32) 09/10/24 12:42 ALT 19 U/L (0-33) 09/10/24 12:42 Alkaline Phosphatase 79 U/L (35-105) 09/10/24 12:42 Creatine Kinase 113 U/L (26-192) 09/10/24 12:42 Total Protein 7.3 g/dL (6.6-8.7) 09/10/24 12:42 Albumin 4.0 g/dL (3.5-5.2) 09/10/24 12:42 Globulin 3.3 g/dL (1.3-4.6) 09/10/24 12:42 EKG SR 75, nonspecific T wave changes, also noted on review of EKG from 08/21 procedure at [facility] Other data: Labs reviewed from [facility] 08/21 >> Creatinine 1.47, Hgb 12.8 A&P Assessment and plan (1) Closed intertrochanteric fracture of right hip: Initial encounter, nondisplaced. Resulted from an accidental fall when turning away from the table. No prodromal symptoms. She has had some balance issues/gait instability as residual from her stroke earlier this year. Denies any new neurological symptoms preceding the fall. From a preoperative standpoint needs IVFs overnight and recheck of renal function in am. Needs to stay on aspirin and plavix. Monitor for paroxysmal afib post op. Baseline rhythm is sinus jose david in 50s per holter earlier this year. Is on chronic beta xochitl with dose recently decreased from 50 bid to 25 bid. Encouage incentive spirometer use. Has elevated risk of both vascular and non-vascular complications but as long as renal function not worse in am, should be optimized for urgent procedure. Qualifiers: Encounter type: initial encounter Fracture alignment: nondisplaced Qualified Code(s): S72.144A - Nondisplaced intertrochanteric fracture of right femur, initial encounter for closed fracture (2) Acute kidney injury: As evidenced but creatinine at 2.7, up from 1.4 20 days ago. No recent medication changes that might account for this though she is chronically on hydrochlorothiazide and lisinopril. Suspect some degree of decreased oral intake the last 24 hours since her fall and a prerenal situation contributing. She did take all of her usual medications this morning. Mrs. Peres had carotid endarterectomy on August 21 so it is possible that this is contrast-induced kidney injury assuming that contrast was utilized during the outpatient procedure, and could be trending downward. I suspect that she had chronic kidney disease stage IIIa at baseline that has not been a formal diagnosis. Still making urine. No change in urine reported. CK level is normal. Potassium is okay. (3) History of right-sided carotid endarterectomy: This was performed on August 21, 2020 days ago and included stent placement. On aspirin and Plavix as well as statin therapy with strict instructions to continue all of these medications by surgeon Dr. Nelida Fisher At [facility]. (4) Hypertension: Has chronically been on amlodipine, hydralazine, hydrochlorothiazide and lisinopril in addition to beta-blockade. Has a history of hypertensive emergency in December of this year but blood pressures have been better lately. Qualifiers: Hypertension type: primary hypertension Qualified Code(s): I10 - Essential (primary) hypertension (5) COPD (chronic obstructive pulmonary disease): Has as needed albuterol inhaler at home. No recent steroid or other acute treatment. Has baseline chronic cough. Qualifiers: COPD type: chronic bronchitis Chronic bronchitis type: mucopurulent Qualified Code(s): J41.1 - Mucopurulent chronic bronchitis (6) Dyslipidemia: Chronically on statin therapy (7) Paroxysmal atrial fibrillation: Review of records from recent carotid endarterectomy as well as old records here do indicate that she has had what sounds like paroxysmal atrial fibrillation postoperatively from carotid endarterectomy as well as 1 EKG here in December that was interpreted by cardiology as being atrial fibrillation. She had a Holter monitor in February that did not reveal any evidence of atrial arrhythmia. Echocardiogram was performed as part of her stroke workup. No evidence of [id number] shunt. Systolic ejection fraction normal. Grade 1 diastolic dysfunction noted. She is not on chronic anticoagulation due to not having sustained atrial fibrillation identified that she is on chronic antiplatelet therapy. (8) Nicotine dependence, cigarettes, with other nicotine-induced disorders: Smoking less than half a pack a day, trying to quit but has approximately [id number] history. Not interested in nicotine replacement currently. Plan Inpatient admission Orthopedics consultation for surgical repair Made Dr Jansen and Dr Ba with anesthesia aware of recent carotid endarterectomy and carotid stent placement, need to stay on antiplatelet therapy Pain control, perioperative Alaniz, stool softeners SCDs currently for DVT prophylaxis Will need to continue aspirin and Plavix secondary to carotid stent placement August 21 IV fluids overnight with repeat of electrolytes in the morning Hold home lisinopril and hydrochlorothiazide, will continue amlodipine, hydralazine and metoprolol at usual dosing As needed breathing treatments and incentive spirometer Continue home statin therapy Telemetry monitoring for recurrent atrial fibrillation postoperatively, did experience transient A-fib post carotid endarterectomy less than a month ago per review of records from [facility] Check vitamin D level and start calcium plus vitamin D Urinalysis ordered Supportive care otherwise VTE prophylaxis: SCDs currently, no pharmacologucal DVT prophylaxis due to planned surgery GI Prophylaxis: PPI is a chronic medication Antibiotics: none Pending studies: UA and am labs Telemetry: ordered due to history of afib post op within the last month Alaniz: ordered due to planned surgery Line(s): peripheral IVs Disposition plan: Either rehab/snf versus home with home health and family. Will depend on how she does after surgery. Code Status: Full Code for now but post surgery expressed interest in letting me go if something were to happen to cause her to quit breathing or her heart to stop. Needs to discuss further with daughters and other family. Findings, concerns and plans were discussed with patient and her daughters in the room and they all were given an opportunity to ask questions Attestations Medical Necessity Statement*: Anticipated stay greater than two midnights. The patient presents with a right intertrochanteric hip fracture requiring surgical intervention despite recent carotid stenting due to the necessity of fracture stabilization. Risks include bleeding complications due to dual antiplatelet therapy and potential need for blood transfusion, given the fracture's nature and procedural requirements. The history of stroke significantly informs perioperative management, creating higher thresholds for neurological complications. The patient?s moderate to cori re COPD and hypertension necessitate preoperative optimization and vigilant monitoring post-procedure. Current strategy involves engaging orthopedic and anesthesia teams to mitigate intraoperative risks and prioritizing renal function stabilization with fluids before surgical repair. Targeted communication with family to align on risks and expected course of care, particularly around possible delays or modifications in surgical planning. Diagnoses Closed nondisplaced intertrochanteric fracture of right femur, initial encounter S72.144A Encounter type: initial encounter Fracture alignment: nondisplaced Acute kidney injury N17.9 History of right-sided carotid endarterectomy Z98.890 Primary hypertension I10 Hypertension type: primary hypertension Mucopurulent chronic bronchitis J41.1 COPD type: chronic bronchitis Chronic bronchitis type: mucopurulent Dyslipidemia E78.5 Paroxysmal atrial fibrillation I48.0 Nicotine dependence, cigarettes, with other nicotine-induced disorders F17.218 Perioperative Risk Evaluation Type of surgery Procedure risk: low risk procedure Status of surgery Priority: urgent (neccessary within 6-24 hours) Sepsis risk Infection criteria present: None SIRS criteria present: None Organ dysfunction criteria present: Creatinine > 2 mg/dl Sepsis screen: No Definite Risk Risk factors Cardiovascular: acute TIA/CVA (12/2023, carotid surgery 08/21/2024) and arrhythmias (recent paroxysmal afib) Pulmonary: COPD/emphysema Renal: CHERRY Other risk factors: current tobacco user Medical history Diagnostic procedures within the past year: echo and holter Cardiac Studies: Echocardiogram 02/15/24 Cardiac Event Monitor 02/27/24 Functional capacity Exercise tolerance: < 4 METS Comment on Functional Capacity: limited by right hemiparesis residual, balance issues, tries to go fast Medications High priority meds: AILIN inhibitors/ARBs, beta-blockers, diuretics, statins, antiplatelets (aspirin and plavix) and muscle relaxants (took one last night, not regular medication) Physical exam Physical exam: reviewed and none apply Assessment Risk of cardiovascular perioperative events: Elevated At this time, there is an elevated risk for cardiovascular perioperative events associated with this urgent low risk procedure and the following patient characteristics: functional capacity of < 4 METS, acute TIA/CVA, CHERRY Risk of noncardiovascular perioperative events: Elevated At this time, there is an elevated risk for noncardiovascular perioperative events associated with this urgent low risk procedure and the following patient characteristics: COPD/emphysema, current tobacco user Additional comments: Carotid endarterectomy 08/21/2024 with carotid stent placement. Cannot come off of aspirin and plavix at this time. Discussed with surgeon, anesthesia and patient plus her daughter here. Plan is for general anesthesia without spinal, patient and family aware of increased bleeding risk, among other usual surgical risks. They were given opportunity to ask questions. Recommendations Patient medically optimized for surgery: Yes [place]-op med management: Currently, there are multiple high priority active medications: AILIN inhibitors/ARBs, beta-blockers, diuretics, statins, antiplatelets, muscle relaxants. The recommended actions are:
--- NOTE | 2024-09-10 12:44 | ECG_ITS ---
[facility] Test Date: 2024-09-10 Pat Name: Debbie Peres Department: Room: Gender: Female Manager College: : [id number] Requested By: Alex Christiansen Order Number: [id number] Reading MD: CARLOS ESQUEDA Measurements Intervals [place] Rate: 75 P: 40 CT: 194 QRS: 75 QRSD: 72 T: 54 QT: 373 QTc: 418 Interpretive Statements SINUS RHYTHM WITH SINUS ARRHYTHMIA NONSPECIFIC T-WAVE ABNORMALITY Compared to ECG 02/15/2024 20:29:37 T-wave abnormality now present ST (T wave) deviation no longer present Electronically Signed On 09-11-2024 17:34:07 BUNCHER MACHINE by CARLOS ESQUEDA [email or web address]
[2024-09-10 13:02] LABS: Basophils # 0.1 10^3/uL (0.0-0.1); Basophils % 0.6 %; Eosinophils # 0.1 10^3/uL (0.0-0.8); Eosinophils % 0.8 %; Hematocrit 44.3 % (36-47); Lymphocytes # 2.4 10^3/uL (0.8-4.8); Lymphocytes % 20.7 %; Mean Corpuscular HGB Conc 31.8 g/dL (30-55); Mean Corpuscular Hemoglobin 30.3 pg (27-33); Mean Corpuscular Volume 95.3 fl (85-98); Mean Platelet Volume 9.9 fL (7.4-10.4); Monocytes # 1.1 10^3/uL (0.2-0.9); Monocytes % 8.9 %; Neutrophils % 68.6 %; Nucleated Red Blood Cells % 0 %; Platelet Count 317 10^3/cmm (157-399); Red Blood Count 4.65 10^6/uL (3.85-5.65); Red Cell Distribution Width 12.3 % (12.1-15.1)
[2024-09-10 13:20] LABS: Alanine Aminotransferase 19 U/L (0-33); Alkaline Phosphatase 79 U/L (35-105); Aspartate Amino Transferase 23 U/L (0-32); Blood Urea Nitrogen 39 mg/dL (8-23); Calcium 9.7 mg/dL (8.5-10.5); Carbon Dioxide 24 mmol/L (22-29); Chloride 97 mmol/L (98-107); Creatinine Clr Calc Pharmacy 14.1349; Globulin 3.3 g/dL (1.3-4.6); Glomerular Filtration Rate 17.5 mL/min (90-130); Glucose 118 mg/dL (65-115); Osmolality Calculated 290 mOsm/kg (285-295); Sodium 135 mmol/L (136-145); Total Bilirubin 0.6 mg/dL (0.15-1.2); Total Protein 7.3 g/dL (6.6-8.7)
[2024-09-10 13:21] LABS: Anion Gap 18.3 (5-19); Potassium 4.3 mmol/L (3.5-5.1)
[2024-09-10 13:29] LABS: Slide Review Slide Review Perform
[2024-09-10 13:54] LABS: Creatine Phosphokinase 113 U/L (26-192)
[2024-09-10] MEDS: sodium chloride 0.9% 1,000 ML 125 ML IV (14:57)
[2024-09-10] MEDS: HYDROcodone-acetaminophen 5-325 mg Tablet PO (15:34)
--- NOTE | 2024-09-10 17:31 | PM.CONSULT ---
Providers/Reason For Consult Consulting Physician/Specialty*: Hospitalist Reason for Consult*: Right hip fracture Attending Physician: Khadijah Marie MD Primary Care Provider: Lucrecia Franco APN History of Present Illness History of Present Illness Debbie Peres is a 69 year old female fell at home yesterday. Her family try to get her to go to the hospital but she refused. She did end up coming to hospital today she sustained a right minimally displaced intertrochanteric hip fracture. Patient is on Plavix and aspirin. She cannot come off of this due to a recent endarterectomy. With a stent placed. Review of Systems Const: Denies: fever(s) or chills Card: Denies: chest pain Resp: Denies: dyspnea GI: Denies: abdominal pain : Denies: dysuria, urinary frequency or urinary urgency Musc: Denies: neck pain or back pain Skin/Breast: Denies: rash Medications/Allergies Home Medications Medication Instructions Recorded Confirmed Last Taken Type albuterol sulfate 90 mcg/actuation 2 puff inhalation QID PRN 01/01/24 09/10/24 Unknown Rx aerosol inhaler shortness of breath or wheezing #6.7 grams metoprolol tartrate 25 mg tablet 25 mg PO BID 02/16/24 09/10/24 09/10/24 07:00 History amlodipine 5 mg tablet 5 mg PO DAILY #30 tabs 02/18/24 09/10/24 09/10/24 07:00 Rx aspirin 81 mg tablet,delayed 81 mg PO DAILY #30 tabs 02/18/24 09/10/24 09/10/24 07:00 Rx release atorvastatin 40 mg tablet 80 mg (2 x 40 mg) PO DAILY #30 tabs 02/18/24 09/10/24 09/10/24 07:00 Rx clopidogrel 75 mg tablet 75 mg PO DAILY #30 tabs 02/18/24 09/10/24 09/10/24 07:00 Rx bupropion HCl 100 mg tablet,12 hr 100 mg PO DAILY 04/01/24 09/10/24 09/10/24 07:00 History sustained-release (Wellbutrin SR) hydrochlorothiazide 25 mg tablet 25 mg PO DAILY 04/01/24 09/10/24 09/10/24 07:00 History hydralazine 25 mg tablet 25 mg PO DAILY 09/10/24 09/10/24 09/10/24 07:00 History lisinopril 20 mg tablet 20 mg PO DAILY 09/10/24 09/10/24 09/10/24 07:00 History omeprazole 20 mg capsule,delayed 20 mg PO DAILY 09/10/24 09/10/24 09/10/24 07:00 History release Allergies Allergy/AdvReac Type Severity Reaction Status Date / Time No Known Allergies Allergy Unverified 04/01/24 08:16 Current Medications Generic Name Dose Route Start Last Admin Trade Name Freq PRN Reason Stop Dose Admin Hydrocodone Bitart/Acetaminophen 1 - 2 tab 09/10/24 14:51 09/10/24 15:34 Hydrocodone-Acetaminophen 5-325 Mg Tablet PO 2 tab Q4H PRN Administration Moderate To Severe Pain 1st Sodium Chloride 1,000 mls @ 125 mls/hr 09/10/24 14:51 09/10/24 14:57 Sodium Chloride 0.9% IV 09/11/24 06:50 125 mls/hr .Q8H MIRACLE Administration PFSH Acute PFSH: Medical History (Updated 09/10/24 @ 15:36 by Khadijah Marie MD) Paroxysmal atrial fibrillation Noted post R CEA 07/2024, on one EKG 12/2023, NOT seen on 21 day holter in 02/2024 History of fracture of wrist left Dyslipidemia History of Holter monitoring 02/2024 21 day monitorin, baseline sinus jose david at 55 bpm, occasional supraventricular and rare ventricular ectopic beats. No atrial arrhythmias noted. Hypertension Posterior reversible encephalopathy syndrome (PRES) 01/2024 COPD (chronic obstructive pulmonary disease) Occlusion of both vertebral arteries History of echocardiogram 02/2024 [facility] EF 60-65%, no R>L shunt, mild MR, mild TR, grade 1 diastolic dysfunction Atrial arrhythmia Brain aneurysm 2015 and 2017, treated with stents/coils Carotid stenosis, right 12/2023 70%-80%, underwent right CEA in 07/2024 Hypertensive emergency 12/2023 CVA (cerebral vascular accident) 12/2023 right hemiparesis Surgical History (Updated 09/10/24 @ 15:02 by Khadijah Marie MD) History of right-sided carotid endarterectomy (08/21/24) with EnRoute transcarotid stent placement, done at [facility] H/O hand surgery right hand S/P cerebral aneurysm repair Family History (Updated 09/10/24 @ 15:29 by Khadijah Marie MD) Brother Cancer Father CAD (coronary artery disease) Mother Dementia Family/Other Anesthesia complication niece Denies family history of Diabetes Bleeding disorder Social History (Updated 09/10/24 @ 15:29 by Khadijah Marie MD) Smoking and tobacco/nicotine status: current every day tobacco/nicotine user cigarettes Packs smoked per day: 1 Years cigarettes smoked: 50 Number of cigarettes per day: 6-10 [ Other cigarette details: trying to quit] Alcohol intake: former Substance/Drug Use: current Other substance/drug use details: Occasional THC gummies Lives independently: No Household members: family Housing: House Marital status: Single Number of children: 2 Pets and animals: Yes Pets & animals: cat(s) and dog(s) Vitals/I&O/Wt Last Vital Signs Temp 97.9 F 09/10/24 16:00 Pulse 58 L 09/10/24 16:00 Resp 17 09/10/24 16:00 BP 132/61 09/10/24 16:00 Pulse Ox 97 09/10/24 16:00 O2 Del Method Room Air 09/10/24 16:00 Weight last 48 hrs Weight 111 lb 11.2 oz Weight 97 lb Physical Exam Narrative: Patient is sitting in bed eating. She is pain is controlled currently. She is alert and oriented x 3. At this point show her extremities and neurovasc intact. She has movement of her feet Urinary Catheter Management: Alaniz: Cath Placed During This Visit: yes Urinary Catheter Date of Insertion: 09/10/24 Urinary Catheter Time of Insertion: 17:09 Data 09/10/24 12:42 09/10/24 12:42 A&P Assessment and plan (1) Closed intertrochanteric fracture of right hip: Plan is to do a right intramedullary hip nail. I had an open and honest discussion with the patient about the risks, benefits and alternatives to both surgical and nonsurgical treatment. The patient verbalized understanding of the inherent unpredictability associated with surgery. Risk of surgery were discussed including, but not limited to, infection, bleeding, temporary and permanent nerve damage, continued pain, stiffness, incomplete healing, need for revision surgery, blood clot and other complications. The patient verbalized understanding that there is spine is elective in nature and if they find any of these risks to be unacceptable then they should choose not to have the surgery. The patient verbalized understanding of these risks and elected to proceed with the surgery. Qualifiers: Encounter type: initial encounter Fracture alignment: nondisplaced Qualified Code(s): S72.144A - Nondisplaced intertrochanteric fracture of right femur, initial encounter for closed fracture Coding Level of Care Code Acute Code for Chg Fwd Diagnoses Closed nondisplaced intertrochanteric fracture of right femur, initial encounter S72.144A Encounter type: initial encounter Fracture alignment: nondisplaced
[2024-09-10] MEDS: calcium carb-vit d 600mg/400unit 1 Tablet 1 EACH PO (18:10)
[2024-09-10] MEDS: docusate sodium 100 mg Capsule PO (18:10)
[2024-09-10 18:21] LABS: Bilirubin Urine Negative (Negative); Blood Urine Negative (Negative); Glucose Urine UA Negative (Normal); Ketones Urine Trace (Negative); Leukocyte Esterase Urine Trace (Negative); Nitrate Urine Negative (Negative); Protein Urine 1+ (Negative); Specific Gravity, Urine 1.019 (1.005-1.030); Urine Appearance Cloudy (CLEAR); Urine Color Yellow (Yellow)
[2024-09-10 18:24] LABS: Add Urine Microscopic? YES; Bacteria Urine 1+ /hpf; Hyaline Casts Urine 194.47 /lpf; RBC Urine 0-2 /hpf (0-2)
[2024-09-10 18:45] LABS: Add Urine Culture? No; Fine Granular Casts Urine 0-4 /lpf; UA Slide Review UA Slide Review Perf
[2024-09-10] MEDS: metoprolol tartrate 25 mg Tablet PO (21:17)
[2024-09-10] MEDS: sennosides 8.6 mg Tablet 17.2 MG PO (21:18)
[2024-09-11] VITALS (21 sets, daily range): BP systolic 97–152; BP diastolic 45–83; PULSE 56–79; RESP 14–18; TEMP 35.9–36.6; O2SAT 90–100
[2024-09-11] MEDS: HYDROcodone-acetaminophen 5-325 mg Tablet PO ×4 (00:54→20:40)
[2024-09-11 05:43] LABS: Basophils # 0.1 10^3/uL (0.0-0.1); Basophils % 0.6 %; Eosinophils # 0.2 10^3/uL (0.0-0.8); Eosinophils % 2.1 %; Lymphocytes # 2.7 10^3/uL (0.8-4.8); Lymphocytes % 27.5 %; Mean Corpuscular HGB Conc 32.3 g/dL (30-55); Mean Corpuscular Hemoglobin 29.8 pg (27-33); Mean Corpuscular Volume 92.3 fl (85-98); Mean Platelet Volume 10.4 fL (7.4-10.4); Monocytes # 0.7 10^3/uL (0.2-0.9); Neutrophils % 62.5 %; Nucleated Red Blood Cells % 0 %; Platelet Count 318 10^3/cmm (157-399); Red Blood Count 3.79 10^6/uL (3.85-5.65); Red Cell Distribution Width 12.3 % (12.1-15.1); White Blood Count 9.75 10^3/uL (3.29-11.43)
--- NOTE | 2024-09-11 06:55 | XR_ITS ---
WS: [id number] Exam: XR hip RT 2-3V wo/w pel* [id number] Date/Time of Exam: 09/11/2024 6:55 AM Reason For Exam: ORIF HIP, OR PIC Intertrochanteric fracture of the RIGHT hip is now stabilized with an intramedullary lizeth and femoral neck screw. Postoperative changes in the adjacent soft tissues.
--- NOTE | 2024-09-11 07:08 | W.PM.OPSUD ---
Surgery/Procedure H&P Update DATE OF PROCEDURE: September 11, 2024 DATE H&P PERFORMED: 09/10/24 H&P UPDATE INFORMATION: I have reviewed H&P completed within last 30 days, I have examined patient prior to procedure and No changes to prior documentation PLANNED PROCEDURE: Operation Date: 09/11/24 14:10 Proposed Procedures p Trochanteric Femoral Nail(Right) - Shukri Jansen DO
[2024-09-11 07:16] LABS: Anion Gap 14.9 (5-19); Blood Urea Nitrogen 41 mg/dL (8-23); Calcium 8.4 mg/dL (8.5-10.5); Carbon Dioxide 24 mmol/L (22-29); Chloride 102 mmol/L (98-107); Creatinine Clr Calc Pharmacy 15.0032; Glomerular Filtration Rate 17.5 mL/min (90-130); Glucose 96 mg/dL (65-115); Magnesium 1.1 mg/dL (1.7-2.3); Osmolality Calculated 294 mOsm/kg (285-295); Phosphorus 4.3 mg/dL (2.5-4.5); Potassium 3.9 mmol/L (3.5-5.1); Sodium 137 mmol/L (136-145)
[2024-09-11 07:30] LABS: 25 Hydroxy Vitamin D 16 ng/mL (30-100)
[2024-09-11] MEDS: sodium chloride 0.9% 1,000 ML 125 ML IV (08:06)
[2024-09-11] MEDS: hyDRALAzine 25 mg Tablet PO (08:12)
[2024-09-11] MEDS: pantoprazole DR 40 mg Tablet PO (08:12)
[2024-09-11] MEDS: buPROPion SR (12 HR) 100 mg Tablet PO (08:12)
[2024-09-11] MEDS: calcium carb-vit d 600mg/400unit 1 Tablet 1 EACH PO ×2 (08:12→17:20)
[2024-09-11] MEDS: atorvastatin 40 mg Tablet 80 MG PO (08:12)
[2024-09-11] MEDS: docusate sodium 100 mg Capsule PO ×2 (08:12→17:20)
[2024-09-11] MEDS: aspirin 81 mg EC Tablet PO (08:13)
[2024-09-11] MEDS: amlodipine 5 mg Tablet PO (08:13)
[2024-09-11] MEDS: clopidogrel 75 mg Tablet PO (08:13)
[2024-09-11] MEDS: metoprolol tartrate 25 mg Tablet PO ×2 (08:14→20:41)
--- NOTE | 2024-09-11 09:53 | PC.CHAP ---
Pastoral Care Encounter/Spiritual Assessment Type of Contact [] Declined bank cashier visit [] Patient/Family/Request visit [] Outpatient visit [] Follow-up visit [] Physician referral [] Code/Alert [x] Routine visit [] Staff referral [] Actively dying [] Patient sleeping [] Family support [] [] Out of room [] Palliative care [] [] Receiving care in room [] Pre-surgical visit [] Trauma [] Long length of stay [] ICU visit [] Other: Relational/Emotional Strength [x] Patient feels connected with others/family/visitors/staff [] Distress [] Loneliness/isolation [] Abandonment Spirituality of Patient [x] Person of Jemma [] Attends Holiness of their Jemma x[] Believes in Prayer [] Reads Bible or Anglican materials [] There are Spiritual issues to be addressed 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 Interventions [x] Prayer [x] Active listening [] Non-anxious presence [x] Spiritual/emotional support [] Crisis/trauma care [] Spiritual counseling [] Bereavement support [] Provided bereavement packet [] Provided Bible/devotional materials [] Provided toy/stuffed animal, coloring book to patient or family member [] Provided Communion [] Anointing/[place] [] Salvation [x] Completed spiritual assessment [] Other: Impact on Illness or Injury [] Angry [] Fearful [] Anxious [] Often cries [] Exhaustion [] Unable to work [] Unable to attend sikhism [] Unable to walk/stand [] Unable to read [] Unable to drive [] Unable to eat/drink [] Unable to sleep [] Unable to be with family [] Patient intubated [] Other: Summary Time spent with patient 5 min
--- NOTE | 2024-09-11 13:06 | ANES.PREANE2 ---
Pre-Anesthetic Assessment Height/Weight: Height 1.52 m Weight 50.893 kg Temp Pulse Resp BP Pulse Ox O2 Del Method 97.8 F 71 16 124/63 91 Room Air 09/11/24 12:07 09/11/24 12:07 09/11/24 12:07 09/11/24 12:07 09/11/24 12:07 09/11/24 12:07 Operation Date: 09/11/24 14:10 Proposed Procedures p Trochanteric Femoral Nail(Right) - Shukri H Justyna, DO Familial anesthetic complications: None Was Beta Devorah taken within 24 hours: N/A Was Clonidine taken within 24 hours: N/A Last intake: Intake Last Liquid Date 09/10/24 Last Liquid Time 23:00 Last Solid Date 09/10/24 Last Solid Time 17:00 Social Tobacco and No alcohol Exam alert, oriented x 3, clear to auscultation bilaterally and regular rate & rhythm Airway Mallampati: Class III Dentition: other (multiple missing) Pulmonary Chronic Obstructive Pulmonary Disease CV/HEM Hypertension Neuropsych Cerebrovascular Accident (plavix) Anesthetic Plan ASA status: 3 Anesthesia: General Risk of > 500 ml blood loss (7ml/kg in children): No Medications/Allergies Home Medications Medication Instructions Recorded Confirmed Last Taken Type albuterol sulfate 90 mcg/actuation 2 puff inhalation QID PRN 01/01/24 09/10/24 Unknown Rx aerosol inhaler shortness of breath or wheezing #6.7 grams metoprolol tartrate 25 mg tablet 25 mg PO BID 02/16/24 09/10/24 09/10/24 07:00 History amlodipine 5 mg tablet 5 mg PO DAILY #30 tabs 02/18/24 09/10/24 09/10/24 07:00 Rx aspirin 81 mg tablet,delayed 81 mg PO DAILY #30 tabs 02/18/24 09/10/24 09/10/24 07:00 Rx release atorvastatin 40 mg tablet 80 mg (2 x 40 mg) PO DAILY #30 tabs 02/18/24 09/10/24 09/10/24 07:00 Rx clopidogrel 75 mg tablet 75 mg PO DAILY #30 tabs 02/18/24 09/10/24 09/10/24 07:00 Rx bupropion HCl 100 mg tablet,12 hr 100 mg PO DAILY 04/01/24 09/10/24 09/10/24 07:00 History sustained-release (Wellbutrin SR) hydrochlorothiazide 25 mg tablet 25 mg PO DAILY 04/01/24 09/10/24 09/10/24 07:00 History hydralazine 25 mg tablet 25 mg PO DAILY 09/10/24 09/10/24 09/10/24 07:00 History lisinopril 20 mg tablet 20 mg PO DAILY 09/10/24 09/10/24 09/10/24 07:00 History omeprazole 20 mg capsule,delayed 20 mg PO DAILY 09/10/24 09/10/24 09/10/24 07:00 History release Allergies Allergy/AdvReac Type Severity Reaction Status Date / Time No Known Allergies Allergy Unverified 04/01/24 08:16 Current Medications Generic Name Dose Route Start Last Admin Trade Name Freq PRN Reason Stop Dose Admin Hydrocodone Bitart/Acetaminophen 1 - 2 tab 09/10/24 14:51 09/11/24 07:02 Hydrocodone-Acetaminophen 5-325 Mg Tablet PO 2 tab Q4H PRN Administration Moderate To Severe Pain 1st Aspirin 81 mg 09/11/24 09:00 09/11/24 08:13 Aspirin 81 Mg Ec Tablet PO 81 mg DAILY MIRACLE Administration Atorvastatin Calcium 80 mg 09/11/24 09:00 09/11/24 08:12 Atorvastatin 40 Mg Tablet PO 80 mg DAILY MIRACLE Administration Bupropion HCl 100 mg 09/11/24 09:00 09/11/24 08:12 Bupropion Sr (12 Hr) 100 Mg Tablet PO 100 mg DAILY MIRACLE Administration Calcium Carbonate 1 each 09/10/24 18:00 09/11/24 08:12 Calcium Carb-Vit D 600mg/400unit 1 Tablet PO 1 each BID MIRACLE Administration Clopidogrel Bisulfate 75 mg 09/11/24 09:00 09/11/24 08:13 Clopidogrel 75 Mg Tablet PO 75 mg DAILY MIRACLE Administration Docusate Sodium 100 mg 09/10/24 18:00 09/11/24 08:12 Docusate Sodium 100 Mg Capsule PO 100 mg BID MIRACLE Administration Sodium Chloride 1,000 mls @ 125 mls/hr 09/10/24 14:51 09/11/24 08:06 Sodium Chloride 0.9% IV 09/11/24 14:44 125 mls/hr .Q8H MIRACLE Administration Metoprolol Tartrate 25 mg 09/10/24 21:00 09/11/24 08:14 Metoprolol Tartrate 25 Mg Tablet PO 25 mg BID@0900,2100 MIRACLE Administration Pantoprazole Sodium 40 mg 09/11/24 09:00 09/11/24 08:[address] 40 Mg Tablet PO 40 mg DAILY MIRACLE Administration Senna 17.2 mg 09/10/24 21:00 09/10/24 21:18 Sennosides 8.6 Mg Tablet PO 17.2 mg BEDTIME MIRACLE Administration [facility] Anesthesia Medical History (Updated 09/10/24 @ 15:36 by Khadijah Marie MD) Paroxysmal atrial fibrillation Noted post R CEA 07/2024, on one EKG 12/2023, NOT seen on 21 day holter in 02/2024 History of fracture of wrist left Dyslipidemia History of Holter monitoring 02/2024 21 day monitorin, baseline sinus jose david at 55 bpm, occasional supraventricular and rare ventricular ectopic beats. No atrial arrhythmias noted. Hypertension Posterior reversible encephalopathy syndrome (PRES) 01/2024 COPD (chronic obstructive pulmonary disease) Occlusion of both vertebral arteries History of echocardiogram 02/2024 [facility] EF 60-65%, no R>L shunt, mild MR, mild TR, grade 1 diastolic dysfunction Atrial arrhythmia Brain aneurysm 2015 and 2016, treated with stents/coils Carotid stenosis, right 12/2023 70%-80%, underwent right CEA in 07/2024 Hypertensive emergency 12/2023 CVA (cerebral vascular accident) 12/2023 right hemiparesis Surgical History (Updated 09/10/24 @ 15:02 by Khadijah Marie MD) History of right-sided carotid endarterectomy (08/21/24) with EnRoute transcarotid stent placement, done at [facility] H/O hand surgery right hand S/P cerebral aneurysm repair Family History (Updated 09/10/24 @ 15:29 by Khadijah Marie MD) Brother Cancer Father CAD (coronary artery disease) Mother Dementia Family/Other Anesthesia complication niece Denies family history of Diabetes Bleeding disorder Social History (Updated 09/10/24 @ 15:29 by Khadijah Marie MD) Smoking and tobacco/nicotine status: current every day tobacco/nicotine user cigarettes Packs smoked per day: 1 Years cigarettes smoked: 50 Number of cigarettes per day: 6-10 [ Other cigarette details: trying to quit] Alcohol intake: former Substance/Drug Use: current Other substance/drug use details: Occasional THC gummies Lives independently: No Household members: family Housing: House Marital status: Single Number of children: 2 Pets and animals: Yes Pets & animals: cat(s) and dog(s) Data Anesthesia 09/11/24 05:16 09/11/24 06:50 Short CBC 09/10/24 09/11/24 Range/Units 12:42 05:16 WBC 11.80 H 9.75 (3.29-11.43) 10^3/uL Hgb 14.10 11.30 (11.27-16.99) g/dL Hct 44.3 35.0 L (36-47) % MCV 95.3 92.3 (85-98) fl Plt Count 317 318 (157-399) 10^3/cmm Neut % (Auto) 68.6 62.5 % Neut # (Auto) 8.10 H 6.10 (1.8-7.7) 10^3/uL BMP 09/10/24 09/11/24 09/11/24 12:42 05:16 06:50 Sodium 135 L Cancelled 137 Potassium 4.3 Cancelled 3.9 Chloride 97 L Cancelled 102 Carbon Dioxide 24 Cancelled 24 BUN 39 H Cancelled 41 H Creatinine 2.7 H Cancelled 2.7 H Glucose 118 H Cancelled 96 Calcium 9.7 Cancelled 8.4 L Cardiac Enzymes 09/10/24 Range/Units 12:42 Creatine Kinase 113 (26-192) U/L Liver Function 09/10/24 Range/Units 12:42 Total Bilirubin 0.6 (0.15-1.2) mg/dL AST 23 (0-32) U/L ALT 19 (0-33) U/L Alkaline Phosphatase 79 (35-105) U/L Albumin 4.0 (3.5-5.2) g/dL Urine 09/10/24 Range/Units 17:55 Urine Color Yellow (Yellow) Urine Appearance Cloudy A (CLEAR) Urine pH 5.0 (5-7) Ur Specific [place] 1.019 (1.005-1.030) Urine Protein 1+ A (Negative) Urine Glucose (UA) Negative (Normal) Urine Ketones Trace (Negative) Urine Nitrate Negative (Negative) Urine Bilirubin Negative (Negative) Ur Leukocyte Esterase Trace A (Negative) Urine RBC 0-2 (0-2) /hpf Urine WBC 6-10 (0-5) /hpf Blood Bank 09/11/24 05:10 Blood Type O Positive Rho(D) Type Rh positive Antibody Screen Negative Coags 09/10/24 12:56 PT 13.50 INR 1.00 Cardiac Studies: Echocardiogram 02/15/24 Cardiac Event Monitor 02/27/24
[2024-09-11] MEDS: ceFAZolin 2,000 mg SDV 2000 MG IVP ×2 (14:00→22:33)
--- NOTE | 2024-09-11 15:10 | PM.OP ---
Operative Report Date of procedure: September 11, 2024 Pre-op diagnosis: Right intertrochanteric hip fracture Post-op diagnosis: same Procedure done: Right intramedullary hip nail Surgeon: Shukri Jansen DO Estimated blood loss (mL): 20 Procedure: Right intertrochanteric hip fracture Patient is brought the op suite after undergoing anesthesia was placed in the supine position on the fracture table. All his impingement well-padded. Patient's prepped draped real sterile fashion. Skin incision made over the right hip. The starting pin was inserted into the right greater trochanter tip. AP lateral fluoroscopy and shows improved position. Wire was driven in. The opening reamer was then inserted. In the proximal femur was opened. A gamma nail was then inserted and the pathway for the screw was centered for the center center position of the femoral head. The guide was then placed on the skin the skin incisions made in the tissue protector was then passed against the femur. The guidewire was passed into the center center position of the femoral head. It was measured to be 95 length. I put in I drilled to 95 mm. And. A 90 mm screw and compressed 5 mm. The locking bolt was then placed proximally. Next tension was brought to the distal locking screw. This was again to the picture was then passed after incision was made to the femur. The femur was drilled and a distal locking screw was placed measuring 35 mm. AP and lateral fluoroscopy ensured that the hardware and fracture in good position. Wounds were irrigated and closed with Vicryl and nylon suture. Sterile dressings were applied patient transferred to the PACU in stable condition.
--- NOTE | 2024-09-11 16:05 | ANE.PACU2 ---
Inpatient post-anesthesia follow up: Airway intact: Yes Vital signs: Temperature 97.6 F Pulse Rate 67 Respiratory Rate 18 Blood Pressure 117/62 Pulse Oximetry 91 Oxygen Delivery Me thod Room Air Oxygen Flow Rate 4 Fraction of Inspir ed Oxygen Hydration adequate: Yes Nausea and vomiting: No Pain level: 1 Mental status: Baseline
--- NOTE | 2024-09-11 16:50 | XRR_ITS ---
PROCEDURE INFORMATION: Exam: XR Right Knee Exam date and time: 09/11/2024 10:56 PM Age: 69 years old Clinical indication: Pain; Knee; Right; Additional info: Fall, pain TECHNIQUE: Imaging protocol: Radiologic exam of the right knee. Views: 3 views. COMPARISON: No relevant prior studies available. FINDINGS: Bones/joints: Normal. Soft tissues: Normal. XR/XR knee RT 3V* [id number] IMPRESSION: No acute findings.
--- NOTE | 2024-09-11 16:51 | P.PN_ITS ---
Subjective 2 Subjective: She is doing okay this morning. No ascending chest pain or pressure, denies any shortness of breath. She is awaiting surgery this afternoon. Later on reporting that she has been having right knee pain since her fall. Vitals/I&O/Wt Last Vital Signs Temp 97.4 F L 09/11/24 16:06 Pulse 78 09/11/24 16:06 Resp 14 09/11/24 16:06 BP 135/83 09/11/24 16:06 Pulse Ox 90 09/11/24 16:06 O2 Del Method Nasal Cannula 09/11/24 16:06 O2 Flow Rate 4 09/11/24 15:50 09/11/24 09/11/24 09/11/24 06:59 14:59 22:59 Intake Total 0 / 0 Output Total 570 / 570 Balance -570 / -570 Weight last 48 hrs Weight 50.893 kg Weight 50.666 kg Weight 43.998 kg Physical Exam 2 Const: COMMON NORMALS: patient oriented x3 and alert GENERAL APPEARANCE: c ooperative ORIENTATION/CONSCIOUSNESS: Yes awake HENMT: COMMON NORMALS: oropharynx normal Neck/C-Spine: COMMON NORMALS: no JVD OTHER: Right lower neck surgical wound healing well. Resp: COMMON NORMALS: normal respiratory effort and clear to auscultation bilaterally AUSCULTATION: clear to auscultation bilaterally Cardio: COMMON NORMALS: no JVD, regular rhythm, S1 normal heart sound present, S2 normal heart sound present and No murmurs present (Cardio) RHYTHM: regular rhythm HEART SOUNDS: S1 normal heart sound present and S2 normal heart sound present GI: COMMON NORMALS: Normal to inspection, nondistended, normoactive bowel sounds present, Soft to palpation and non-tender PALPATION: Yes Soft to palpation Extremity: COMMON NORMALS: no joint enlargement and no pedal edema Neuro: COMMON NORMALS: patient oriented x3 and moves all extremities S ENSORIUM/ORIENTATION: Yes alert Skin: COMMON NORMALS: no rashes or lesions noted GENERAL SKIN EXAM: no rashes or lesions noted Urinary Catheter Management: Alaniz: Cath Placed During This Visit: yes Reason for Continuing Indwelling Catheter: Other Urinary Catheter Date of Insertion: 09/10/24 Urinary Catheter Time of Insertion: 17:09 Data 09/11/24 05:16 09/11/24 06:50 A&P Assessment and plan (1) Closed intertrochanteric fracture of right hip: Awaiting surgical repair. Continue pain control with hydrocodone, morphine IV as needed for severe breakthrough pain. Reviewed orthopedic note. Additionally complaining of right knee pain, obtain x-ray. Blood pressure soft this morning, held amlodipine, hydralazine. Monitor blood pressures. Reviewed vitals, CBC, BMP. Discussed with nursing, discussed with pillowcase turner. Initial encounter, nondisplaced. Resulted from an accidental fall when turning away from the table. No prodromal symptoms. She has had some balance issues/gait instability as residual from her stroke earlier this year. Denies any new neurological symptoms preceding the fall. From a preoperative standpoint needs IVFs overnight and recheck of renal function in am. Needs to stay on aspirin and plavix. Monitor for paroxysmal afib post op. Baseline rhythm is sinus jose david in 50s per holter earlier this year. Is on chronic beta xochitl with dose recently decreased from 50 bid to 25 bid. Encouage incentive spirometer use. Has elevated risk of both vascular and non-vascular complications but as long as renal function not worse in am, should be optimized for urgent procedure. PT assessment. Reviewed vitamin D. Supplement is requested. Reviewed UA Qualifiers: Encounter type: initial encounter Fracture alignment: nondisplaced Qualified Code(s): S72.144A - Nondisplaced intertrochanteric fracture of right femur, initial encounter for closed fracture (2) Acute kidney injury: Reviewed BUN, creatinine this morning 41 and 2.7 respectively. Monitor intake and output. Reassess chemistry. As evidenced but creatinine at 2.7, up from 1.4 20 days ago. No recent medication changes that might account for this though she is chronically on hydrochlorothiazide and lisinopril. Suspect some degree of decreased oral intake the last 24 hours since her fall and a prerenal situation contributing. She did take all of her usual medications this morning. Mrs. Peres had carotid endarterectomy on August 21 so it is possible that this is contrast-induced kidney injury assuming that contrast was utilized during the outpatient procedure, and could be trending downward. I suspect that she had chronic kidney disease stage IIIa at baseline that has not been a formal diagnosis. Still making urine. No change in urine reported. CK level is normal. Potassium is okay. (3) History of right-sided carotid endarterectomy: Surgical wound healing well. This was performed on August 21, 2020 days ago and included stent placement. On aspirin and Plavix as well as statin therapy with strict instructions to continue all of these medications by surgeon Dr. Nelida Fisher [facility]. (4) Hypertension: Has chronically been on amlodipine, hydralazine, hydrochlorothiazide and lisinopril in addition to beta-blockade. Has a history of hypertensive emergency in December of this year but blood pressures have been better lately. Qualifiers: Hypertension type: primary hypertension Qualified Code(s): I10 - Essential (primary) hypertension (5) COPD (chronic obstructive pulmonary disease): Has as needed albuterol inhaler at home. No recent steroid or other acute treatment. Has baseline chronic cough. Qualifiers: COPD type: chronic bronchitis Chronic bronchitis type: mucopurulent Qualified Code(s): J41.1 - Mucopurulent chronic bronchitis (6) Dyslipidemia: Continue statin therapy (7) Paroxysmal atrial fibrillation: Continue metoprolol. She is not on chronic anticoagulation due to not having sustained atrial fibrillation identified that she is on chronic antiplatelet therapy. (8) Nicotine dependence, cigarettes, with other nicotine-induced disorders: Smoking less than half a pack a day, trying to quit but has approximately [id number] history. Not interested in nicotine replacement currently. Plan As needed breathing treatments and incentive spirometer Telemetry monitoring for recurrent atrial fibrillation postoperatively, did experience transient A-fib post carotid endarterectomy less than a month ago per review of records [facility] Medical Necessity Statement*: Continue admission for assessment management after right hip fracture and repair, further assessment of right knee pain after fall, CHERRY, post discharge planning and arrangements in a lady with additional comorbidities as above. and High MDM includes amount and/or complexity of data reviewed/ordered [ previous or external records, resulted lab(s)/test(s), ordered lab(s)/test(s) and other healthcare professional discussion] and described risk of complication, morbidity or mortality of management as documented Diagnoses Closed nondisplaced intertrochanteric fracture of right femur, initial encounter S72.144A Encounter type: initial encounter Fracture alignment: nondisplaced Acute kidney injury N17.9 History of right-sided carotid endarterectomy Z98.890 Primary hypertension I10 Hypertension type: primary hypertension Mucopurulent chronic bronchitis J41.1 COPD type: chronic bronchitis Chronic bronchitis type: mucopurulent Dyslipidemia E78.5 Paroxysmal atrial fibrillation I48.0 Nicotine dependence, cigarettes, with other nicotine-induced disorders F17.218
[2024-09-11] MEDS: morphine 4 mg/mL SDV 1 mL IVP (17:28)
[2024-09-11] MEDS: sennosides 8.6 mg Tablet 17.2 MG PO (20:41)
[2024-09-11] MEDS: cyclobenzaprine 10 mg Tablet 5 MG PO (22:32)
[2024-09-12] VITALS: BP 121/62; PULSE 63; RESP 20; TEMP 36.3; O2SAT 92
[2024-09-12] MEDS: HYDROcodone-acetaminophen 5-325 mg Tablet PO ×3 (02:21→12:33)
[2024-09-12 03:09] VITALS: RESP 16
[2024-09-12] MEDS: morphine 4 mg/mL SDV 1 mL IVP (03:09)
[2024-09-12 03:39] VITALS: BP 118/66; PULSE 63; RESP 20; TEMP 36.5; O2SAT 95
[2024-09-12 05:20] LABS: Basophils % 0.1 %; Hematocrit 31.6 % (36-47); Lymphocytes # 0.9 10^3/uL (0.8-4.8); Lymphocytes % 6.6 %; Mean Corpuscular HGB Conc 32.9 g/dL (30-55); Mean Corpuscular Hemoglobin 29.5 pg (27-33); Mean Corpuscular Volume 89.5 fl (85-98); Mean Platelet Volume 10.1 fL (7.4-10.4); Monocytes # 0.6 10^3/uL (0.2-0.9); Monocytes % 4.2 %; Neutrophils # 11.92 10^3/uL (1.8-7.7); Neutrophils % 88.6 %; Nucleated Red Blood Cells % 0 %; Platelet Count 302 10^3/cmm (157-399); Red Blood Count 3.53 10^6/uL (3.85-5.65); White Blood Count 13.47 10^3/uL (3.29-11.43)
[2024-09-12 05:51] LABS: Anion Gap 15.7 (5-19); Blood Urea Nitrogen 28 mg/dL (8-23); Calcium 8.9 mg/dL (8.5-10.5); Carbon Dioxide 22 mmol/L (22-29); Chloride 101 mmol/L (98-107); Creatinine Clr Calc Pharmacy 26.9955; Glomerular Filtration Rate 34.5 mL/min (90-130); Glucose 151 mg/dL (65-115); Osmolality Calculated 286 mOsm/kg (285-295); Potassium 4.7 mmol/L (3.5-5.1); Sodium 134 mmol/L (136-145)
[2024-09-12] MEDS: cyclobenzaprine 10 mg Tablet 5 MG PO (06:19)
[2024-09-12] MEDS: ceFAZolin 2,000 mg SDV 2000 MG IVP (06:19)
[2024-09-12 07:36] VITALS: BP 117/62; PULSE 67; RESP 18; TEMP 36.4; O2SAT 91
--- NOTE | 2024-09-12 07:45 | P.PN_ITS ---
Subjective 2 Subjective: Patient is doing well pain is controlled sitting up in bed eating breakfast. Vitals/I&O/Wt Last Vital Signs Temp 97.6 F 09/12/24 07:36 Pulse 67 09/12/24 07:36 Resp 18 09/12/24 07:36 BP 117/62 09/12/24 07:36 Pulse Ox 91 09/12/24 07:36 O2 Del Method Room Air 09/12/24 07:36 O2 Flow Rate 4 09/11/24 15:50 09/11/24 09/12/24 09/12/24 22:59 06:59 14:59 Intake Total 1000 / 1000 Output Total 1120 / 1120 200 / 1320 Balance -120 / -120 -200 / -320 Weight last 48 hrs Weight 112 lb 1.6 oz Weight 112 lb 3.2 oz Weight 111 lb 11.2 oz Weight 97 lb Physical Exam 2 Narrative: Dressings clean dry intact. Patient sitting up eating breakfast no complaints bilateral lower extremities neurovascular intact Urinary Catheter Management: Alaniz: Cath Placed During This Visit: yes Reason for Continuing Indwelling Catheter: Other Urinary Catheter Date of Insertion: 09/10/24 Urinary Catheter Time of Insertion: 17:09 Data 09/12/24 05:06 09/12/24 05:06 A&P Assessment and plan (1) Closed intertrochanteric fracture of right hip: Postop day #1 right hip nail Up with physical therapy Follow-up in orthopedic clinic in 2 weeks. Qualifiers: Encounter type: initial encounter Fracture alignment: nondisplaced Qualified Code(s): S72.144A - Nondisplaced intertrochanteric fracture of right femur, initial encounter for closed fracture Attestations 2 Medical Necessity Statement*: Per primary service Coding Level of Care Code Acute Code for Chg Fwd Diagnoses Closed nondisplaced intertrochanteric fracture of right femur, initial encounter S72.144A Encounter type: initial encounter Fracture alignment: nondisplaced
[2024-09-12] MEDS: atorvastatin 40 mg Tablet 80 MG PO (08:43)
[2024-09-12] MEDS: buPROPion SR (12 HR) 100 mg Tablet PO (08:44)
[2024-09-12] MEDS: docusate sodium 100 mg Capsule PO (08:44)
[2024-09-12] MEDS: calcium carb-vit d 600mg/400unit 1 Tablet 1 EACH PO (08:45)
[2024-09-12] MEDS: metoprolol tartrate 25 mg Tablet PO (08:45)
[2024-09-12] MEDS: pantoprazole DR 40 mg Tablet PO (08:45)
[2024-09-12] MEDS: clopidogrel 75 mg Tablet PO (08:46)
[2024-09-12] MEDS: aspirin 81 mg EC Tablet PO (08:46)
[2024-09-12 10:33] VITALS: PULSE 78; RESP 17; O2SAT 92
[2024-09-12] MEDS: calcium carbonate 500 mg Chew Tablet 1000 MG PO (10:45)
--- NOTE | 2024-09-12 12:04 | PM.DCS ---
Discharge Providers Date of Admission: 09/10/24 13:23 Date of Discharge: September 12, 2024 Attending Provider at Admission: Khadijah Marie MD Attending Provider at Discharge: Young Ramirez Primary Care Provider: Lucrecia Franco APN Diagnoses at Discharge Discharge Diagnosis (1) Closed intertrochanteric fracture of right hip: Status: Acute Qualifiers: Encounter type: initial encounter Fracture alignment: nondisplaced Qualified Code(s): S72.144A - Nondisplaced intertrochanteric fracture of right femur, initial encounter for closed fracture Reason for Visit Reason for Visit: thinks she broke hip Hospital Course Hospital Course Very pleasant 69-year-old lady presented to ER with right-sided hip pain after a fall while she was turning after placing food on the table for her grandchildren. She was found to have a closed right intertrochanteric hip fracture. She was seen by orthopedics. Underwent right hip repair with intramedullary nail on 09/11. She has been doing well postoperatively. Noted anticipated mild decrease in hemoglobin from 11.3-10.4, baseline around 12-1/2. On presentation also with finding of CHERRY, creatinine up to 2.7, but improved down to 1.5. During hospitalization blood pressures found to be soft, down as low as 97/60, predominantly staying around 120s, antihypertensives were held including HCTZ, amlodipine, lisinopril. Continued on metoprolol. She is asked to hold these medications follow-up for reassessment as she may not need all of them. Please reassess and discontinue any that are not essential. With regards to DVT prophylaxis, she does have history of atrial fibrillation, has been on aspirin and Plavix, has history of brain aneurysm treated with coils, also has a intracranial stent. Consideration given to anticoagulation, however, as she and her daughter have expressed concern for bleeding with full dose anticoagulant they would rather at current time increase aspirin dose to 325 mg continue Plavix. Please reassess anemia/blood counts. She otherwise did well with physical therapy and is returning home with home health. She is asked to follow-up with orthopedics in office for reassessment and discussion on fall prevention. Physical Exam Narrative: Accompanied by her daughter. Const: COMMON NORMALS: patient oriented x3 and alert GENERAL APPEARANCE: cooperative ORIENTATION/CONSCIOUSNESS: Yes awake HENMT: COMMON NORMALS: oropharynx normal Neck/C-Spine: COMMON NORMALS: no JVD OTHER: Right lower neck surgical wound healing well. Resp: COMMON NORMALS: normal respiratory effort and clear to auscultation bilaterally AUSCULTATION: clear to auscultation bilaterally Cardio: COMMON NORMALS: no JVD, regular rhythm, S1 normal heart sound present, S2 normal heart sound present and No murmurs present (Cardio) RHYTHM: regular rhythm HEART SOUNDS: S1 normal heart sound present and S2 normal heart sound present GI: COMMON NORMALS: Normal to inspection, nondistended, normoactive bowel sounds present, Soft to palpation and non-tender PALPATION: Yes Soft to palpation Extremity: COMMON NORMALS: no joint enlargement and no pedal edema Neuro: COMMON NORMALS: patient oriented x3 and moves all extremities SENSORIUM/ORIENTATION: Yes alert Skin: COMMON NORMALS: no rashes or lesions noted GENERAL SKIN EXAM: no rashes or lesions noted Urinary Catheter Management: Alaniz: Cath Placed During This Visit: yes Reason for Continuing Indwelling Catheter: Other Urinary Catheter Date of Insertion: 09/10/24 Urinary Catheter Time of Insertion: 17:09 Discharge Data Studies Completed and Pending Completed Studies During Hospitalization Category Date Time Status XR chest 1V portable [id number] Stat Exams 09/10/24 12:00 Completed XR hip RT 2-3V wo/w pel* [id number] Stat Exams 09/10/24 11:39 Completed XR knee RT 3V* [id number] Routine Exams 09/11/24 16:50 Completed Pending at discharge Category Date Time Status XR hip RT 2-3V wo/w pel* [id number] Routine Exams 09/11/24 06:55 Taken Basic Metabolic Panel AM LABS Lab 09/13/24 04:00 Ordered Basic Metabolic Panel AM LABS Lab 09/14/24 04:00 Ordered Complete Blood Count w/Auto AM LABS Lab 09/13/24 04:00 Ordered Complete Blood Count w/Auto AM LABS Lab 09/14/24 04:00 Ordered Radiology Impressions Chest X-Ray 09/10/24 12:00 IMPRESSION: 1. No acute finding. Knee X-Ray 09/11/24 16:50 IMPRESSION: No acute findings. Laboratory Results WBC 13.47 10^3/uL (3.29-11.43) H 09/12/24 05:06 RBC 3.53 10^6/uL (3.85-5.65) L 09/12/24 05:06 Hgb 10.40 g/dL (11.27-16.99) L 09/12/24 05:06 Hct 31.6 % (36-47) L 09/12/24 05:06 MCV 89.5 fl (85-98) 09/12/24 05:06 MCH 29.5 pg (27-33) 09/12/24 05:06 MCHC 32.9 g/dL (30-55) 09/12/24 05:06 RDW 12.0 % (12.1-15.1) L 09/12/24 05:06 Plt Count 302 10^3/cmm (157-399) 09/12/24 05:06 MPV 10.1 fL (7.4-10.4) 09/12/24 05:06 Neut % (Auto) 88.6 % 09/12/24 05:06 Lymph % (Auto) 6.6 % 09/12/24 05:06 Winn % (Auto) 4.2 % 09/12/24 05:06 Eos % (Auto) 0.0 % 09/12/24 05:06 Baso % (Auto) 0.1 % 09/12/24 05:06 Neut # (Auto) 11.92 10^3/uL (1.8-7.7) H 09/12/24 05:06 Lymph # (Auto) 0.9 10^3/uL (0.8-4.8) 09/12/24 05:06 Winn # (Auto) 0.6 10^3/uL (0.2-0.9) 09/12/24 05:06 Eos # (Auto) 0.0 10^3/uL (0.0-0.8) 09/12/24 05:06 Baso # (Auto) 0.0 10^3/uL (0.0-0.1) 09/12/24 05:06 Nucleated RBC % (auto) 0 % 09/12/24 05:06 Nucleated RBCs # 0.0 /100WBC 09/12/24 05:06 PT 13.50 SECONDS (12.1-14.9) 09/10/24 12:56 INR 1.00 (0.8-1.2) 09/10/24 12:56 Sodium 134 mmol/L (136-145) L 09/12/24 05:06 Potassium 4.7 mmol/L (3.5-5.1) 09/12/24 05:06 Chloride 101 mmol/L (98-107) 09/12/24 05:06 Carbon Dioxide 22 mmol/L (22-29) 09/12/24 05:06 Anion Gap 15.7 (5-19) 09/12/24 05:06 BUN 28 mg/dL (8-23) H 09/12/24 05:06 Creatinine 1.5 mg/dL (0.5-0.9) H 09/12/24 05:06 GFR Calculation 34.5 mL/min (90-130) L 09/12/24 05:06 Glucose 151 mg/dL (65-115) H 09/12/24 05:06 Calculated Osmolality 286 mOsm/kg (285-295) 09/12/24 05:06 Calcium 8.9 mg/dL (8.5-10.5) 09/12/24 05:06 Phosphorus 4.3 mg/dL (2.5-4.5) 09/11/24 06:50 Magnesium 1.1 mg/dL (1.7-2.3) L 09/11/24 06:50 Total Bilirubin 0.6 mg/dL (0.15-1.2) 09/10/24 12:42 AST 23 U/L (0-32) 09/10/24 12:42 ALT 19 U/L (0-33) 09/10/24 12:42 Alkaline Phosphatase 79 U/L (35-105) 09/10/24 12:42 Creatine Kinase 113 U/L (26-192) 09/10/24 12:42 Total Protein 7.3 g/dL (6.6-8.7) 09/10/24 12:42 Albumin 4.0 g/dL (3.5-5.2) 09/10/24 12:42 Globulin 3.3 g/dL (1.3-4.6) 09/10/24 12:42 25-OH Vitamin D Total 16 ng/mL (30-100) L 09/11/24 06:50 Urine Color Yellow (Yellow) 09/10/24 17:55 Urine Appearance Cloudy (CLEAR) A 09/10/24 17:55 Urine pH 5.0 (5-7) 09/10/24 17:55 Ur Specific [place] 1.019 (1.005-1.030) 09/10/24 17:55 Urine Protein 1+ (Negative) A 09/10/24 17:55 Urine Glucose (UA) Negative (Normal) 09/10/24 17:55 Urine Ketones Trace (Negative) 09/10/24 17:55 Urine Blood Negative (Negative) 09/10/24 17:55 Urine Nitrate Negative (Negative) 09/10/24 17:55 Urine Bilirubin Negative (Negative) 09/10/24 17:55 Urine Urobilinogen 1.0 mg/dL (Negative) 09/10/24 17:55 Ur Leukocyte Esterase Trace (Negative) A 09/10/24 17:55 Urine RBC 0-2 /hpf (0-2) 09/10/24 17:55 Urine WBC 6-10 /hpf (0-5) 09/10/24 17:55 Ur Squamous Epith Cells 11-20 /hpf (0-5) 09/10/24 17:55 Ur Transition Epith Cell 5-10 /hpf 09/10/24 17:55 Amorphous Sediment Not Reportable 09/10/24 17:55 Urine Bacteria 1+ /hpf (NONE) H 09/10/24 17:55 Hyaline Casts 194.47 /lpf 09/10/24 17:55 Fine Granular Casts 0-4 /lpf H 09/10/24 17:55 Blood Type O Positive 09/11/24 05:10 Rho(D) Type Rh positive 09/11/24 05:10 Antibody Screen Negative 09/11/24 05:10 Vitals Last Vital Signs Temp 97.6 F 09/12/24 07:36 Pulse 78 09/12/24 10:33 Resp 17 09/12/24 10:33 BP 117/62 09/12/24 07:36 Pulse Ox 92 09/12/24 10:33 O2 Del Method Room Air 09/12/24 10:33 O2 Flow Rate 4 09/11/24 15:50 Discharge Plan Discharge Patient Disposition: Home Health Service Condition: Stable Prescriptions: New aspirin 325 mg capsule 325 mg PO DAILY Qty: 30 0RF Continued albuterol sulfate 90 mcg/actuation HFA aerosol inhaler 2 puff inhalation QID PRN (Reason: shortness of breath or wheezing) Qty: 6.7 0RF bupropion HCl [Wellbutrin SR] 100 mg tablet sustained-release 12 hr 100 mg PO DAILY metoprolol tartrate 25 mg tablet 25 mg PO BID atorvastatin 40 mg Tablet 80 mg PO DAILY Qty: 30 0RF clopidogrel 75 mg Tablet 75 mg PO DAILY Qty: 30 0RF lisinopril 20 mg tablet 20 mg PO DAILY hydralazine 25 mg tablet 25 mg PO DAILY omeprazole 20 mg capsule,delayed release(DR/EC) 20 mg PO DAILY Held hydrochlorothiazide 25 mg tablet 25 mg PO DAILY Hold Instructions: Resume on 09/19/24. amlodipine 5 mg tablet 5 mg PO DAILY Qty: 30 0RF Hold Instructions: Resume on 09/18/24. Discontinued aspirin 81 mg Tablet,Delayed Release (Dr/Ec) 81 mg PO DAILY Qty: 30 0RF Discharge Orders: Discharge Order (Routine); Ordered 09/12/24 Ordered By: Young Ramirez Referrals: [facility] [Outside] Lucrecia Franco APN [Primary Care Provider] - 09/17/24 10:00 am Shukri Jansen DO [Physician] - 09/26/24 3:15 pm Patient Instructions: Atrial Fibrillation, Aspirin (By mouth), Acute Wound Care (DC), ORIF of Hip Fracture (DC), Opioid Safety, Post Anesthesia Care Activity Restrictions/Additional Instructions: You are being discharged from the hospital today during which time you have been under the care of Dr. Jansen. You had a intertrochanteric hip fracture. You were treated for this injury with intramedullary hip nail. You may resume you normal diet (including any special diets as directed by your primary doctor) as well as your home medications. You should follow up with you primary doctor if you have any questions regarding medication you took prior to your stay in the hospital. You may take your pain medication as prescribed. After the first few days, take your pain medication as needed. Do not drive or drink alcohol while taking your pain medication. Your injury may increase your risk of developing a blood clot,or DVT, in your arm or leg. This could potentially dislodge and travel to your lungs and become a life threatening condition called apulmonary embolus,or PE. You have been prescribed the same Plavix and aspirin you are already on to be taken to prevent this. Frequent movement of the feet will also help prevent this from occurring. If you develop any new or worsening cough, chestpain, bloody sputum or shortness of breath, call 911 or go to the EmergencyRoom. Always keep your surgical incision/dressing clean and dry. If you experience increasing pain at your incision site, redness, swelling, increasing discharge, foul odors, or fevers (greater than 100.4), night sweats or chills you should call the office at the above number. If you feel this is an emergency you should be evaluated in the Emergency Department of a nearby hospital. Orthopedic Patient Instructions Summary: Weight Bearing: As tolerated Activity: As tolerated. Diet: Regular. Wound Care: Keep dressing clean and dry. Anticoagulation: Plavix and aspirin Pain Medication: Take only as needed. Ice, rest and elevation will be of great benefit. Please plan to follow-up [facility] Dr Jansen in 2 weeks. You will need to call the clinic [phone] to schedule this visit. Thank you far allowing me to participate in your care. Do not hesitate to call the office with any questions or concerns. Discharge Attestations Time Spent in Discharge Care*: greater than 30 min Quality Metrics Clinical Quality Measures [ No reported AMI, CVA or VTE this stay] Coding Level of Care Code 75822 Total time (in minutes) for Discharge: 40 Diagnoses Closed nondisplaced intertrochanteric fracture of right femur, initial encounter S72.144A Encounter type: initial encounter Fracture alignment: nondisplaced
[2024-09-12 14:03] VITALS: BP 117/62; PULSE 78; RESP 17; TEMP 36.4; O2SAT 92
== END 2024-09-12 13:30 | disposition home health service (06) | DRG 481 ==
LOC: ER 12:36 → MEDSURG 13:41
PROVIDERS: Orthopaedic Surgery; Admitting Provider Hospitalist; Emergency Provider Family Medicine; PCP Nurse Practitioner Family; Visit Provider Internal Medicine
PROC: 0QS606Z Reposition Right Upper Femur with Intramedullary Internal Fixation Device, Open Approach (ICD-10-PCS; CPT 27245; principal; 2024-09-11 13:40)
DX: S72.144A Nondisplaced intertrochanteric fracture of right femur, initial encounter for closed fracture (principal); I69.851 Hemiplegia and hemiparesis following other cerebrovascular disease affecting right dominant side; N17.9 Acute kidney failure, unspecified; I48.0 Paroxysmal atrial fibrillation; I69.898 Other sequelae of other cerebrovascular disease; R26.89 Other abnormalities of gait and mobility; I10 Essential (primary) hypertension; J44.9 Chronic obstructive pulmonary disease, unspecified; E78.5 Hyperlipidemia, unspecified; F17.210 Nicotine dependence, cigarettes, uncomplicated; I65.21 Occlusion and stenosis of right carotid artery; Z95.828 Presence of other vascular implants and grafts; W18.30XA Fall on same level, unspecified, initial encounter; Y93.F9 Activity, other caregiving; Z79.82 Long term (current) use of aspirin; Z79.02 Long term (current) use of antithrombotics/antiplatelets
CPT/HCPCS: 36415; 51702; 71045; 73502; 73562; 76000; 80048; 80053; 81001; 82306; 82550; 83735; 84100; 85025; 85610; 86850; 86900; 93005; 96365; 97116; 97161; 97165; 99285; C1713; J0690; J2250; J2270; J2704; J3010; J3490; J7030; P9045

== ENCOUNTER → 2024-09-26 15:08 | Outpatient (BNVA) | payer MEDICARE, SELFPAY | PROVIDERS: PCP Nurse Practitioner Family; Visit Provider Orthopaedic Surgery | DX: S72.144A Nondisplaced intertrochanteric fracture of right femur, initial encounter for closed fracture (principal); W19.XXXA Unspecified fall, initial encounter | CPT/HCPCS: 99024 ==

== ENCOUNTER → 2024-10-29 13:15 | Outpatient (BNVA) | payer MEDICARE, SELFPAY | PROVIDERS: PCP Nurse Practitioner Family; Visit Provider Orthopaedic Surgery | DX: S72.144A Nondisplaced intertrochanteric fracture of right femur, initial encounter for closed fracture (principal); X58.XXXA Exposure to other specified factors, initial encounter | CPT/HCPCS: 73502; 99024 ==

== ENCOUNTER → 2024-12-12 15:25 | Outpatient (BNVA) | payer MEDICARE, SELFPAY | PROVIDERS: PCP Nurse Practitioner Family; Visit Provider Orthopaedic Surgery | DX: S72.144A Nondisplaced intertrochanteric fracture of right femur, initial encounter for closed fracture (principal); X58.XXXA Exposure to other specified factors, initial encounter | CPT/HCPCS: 73502; 99024 ==

== ENCOUNTER 2025-10-12 20:01 | Inpatient (IN) | payer MEDICARE, SELFPAY ==
[2025-10-12] VITALS (9 sets, daily range): BP systolic 156–220; BP diastolic 76–133; PULSE 76–116; RESP 16–30; TEMP 36.8; O2SAT 90–95; BMI 17.3
--- OUTSIDE RECORDS SUMMARY | 2025-10-12 20:06 | XMS_ITS | Encounter Summary ---
Author Organization [facility] Address [address] [place] [address] Care Team Providers Care Call Center Operations Manager Name Role Phone Unavailable Primary Care Provider Unavailabl e Encounter Details Date Type Department Care Team (Latest Contact Info) Description 08/01/2006 Outpatient Historical [facility]- [place] [address] [place] [id number] Ryan Arango MD NO ADDRESS ON FILE Parapsoriasis (Primary Dx) Social History Tobacco Use Types Packs/Day Years Used Date Smoking Tobacco: Never Assessed Comments Unknown Sex and Gender Information Value Date Recorded Sex Assigned at Not on file 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
--- OUTSIDE RECORDS SUMMARY | 2025-10-12 20:06 | XMS_ITS | Clinical Summary ---
Author Organization [facility] Address [address] [place] [address] Phone Care Team Providers Care Head Of Science Name Role Phone Delio Riddle Primary Care Provide r Allergies No known active allergies Medications aspirin (KE CHEWABLE) 81 mg Tablet, Chewable Take 1 Tablet (81 mg) by mouth daily with breakfast. 90 Tablet 01/17/2024 Active buPROPion HCL (WELLBUTRIN SR) 100 mg Sustained Release 12 hour tablet Take 100 mg by mouth daily in the morning. Active clopidogreL (PLAVIX) 75 mg Tablet Take 75 mg by mouth daily. Active hydroCHLOROthiaz drew 25 mg tablet Take 25 mg by mouth daily in the morning. Active lisinopriL (PRINIVIL) 20 mg tablet Take 20 mg by mouth daily. Active metoprolol tartrate (LOPRESSOR) 25 mg tablet Take 25 mg by mouth 2 times daily with meals. Active omeprazole (PriLOSEC) 20 mg Capsule, Delayed Release(E.C.) Take 20 mg by mouth daily. Active amLODIPine (NORVASC) 5 mg tablet Take 5 mg by mouth daily. Active atorvastatin (LIPITOR) 80 mg tablet Take 1 Tablet by mouth daily. 10/07/2024 Active Active Problems Problem Noted Date Diagnosed Date Stenosis of right internal carotid artery 2023 CHERRY (acute kidney injury) 08/22/2024 Acute focal neurological deficit 01/11/2024 AF (atrial fibrillation) 01/11/2024 Elevated blood pressure read ing without diagnosis of hypertension 01/11/2024 Tobacco dependence 01/11/2024 Acute ischemic stroke 01/11/2024 Vertebral artery occlusion, bilateral 01/11/2024 Intracranial aneurysm 01/11/2024 S/P coil embolization of cerebral aneurysm 01/10 Hypertensive emergency 01/11/2024 Encounters Date Type Department Care Team Description 09/30/2025 External Device Data STL ABSTRACTION Provider, Abstract 08/20/2025 External Device Data STL ABSTRACTION Provider, Abstract 08/19/2025 External Device Data STL ABSTRACTION Provider, Abstract 08/19/2025 External Device Data STL ABSTRACTION Provider, Abstract 07/29/2025 External Device Data STL ABSTRACTION Provider, Abstract from Last 3 Months Family History Medical History Relation Name Comments Heart Disease Father Hypertension Mother Gisele Other Mother Gisele Relation Name Status Comments Father Mother Gisele Social History Tobacco Use Types Packs/Day Years Used Date Smoking Tobacco: Every Day Cigarettes Tobacco Cessation:Ready to Q uit: Not Asked; Counseling Given: Not Answered Alcohol Use Standard Drinks/Week Comments Not Currently 0 (1 standard drink = 0.6 oz pur e alcohol) Feeling Safe Answer Date Recorded Are you in a relationship wi th someone who hurts you emotionally and/or physically? 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 Gender Identity Not on file Sexual Orientation Not on file Last Filed Vital Signs Vital Sign Reading Time Taken Comments Blood Pressure 132/78 10/24/2024 10:44 AM PERSONAL INJURY LITIGATION PARALEGAL Pulse 77 10/24/2024 10:44 AM PERSONAL INJURY LITIGATION PARALEGAL Temperature 36.5 C (97.7 F) 08/22/2024 11:00 AM CDT Respiratory Rate 16 10/24/2024 10:44 AM PERSONAL INJURY LITIGATION PARALEGAL Oxygen Saturation 93% 10/24/2024 10:44 AM PERSONAL INJURY LITIGATION PARALEGAL Inhaled Oxygen Concentration - - Weight 43.7 kg (96 lb 6.4 oz) 10/24/2024 10:44 A M PERSONAL INJURY LITIGATION PARALEGAL Height 152.4 cm (5') 08/21/2024 5:12 AM CDT Body Mass Index 18.83 08/21/2024 5:12 AM CDT Plan of Treatment Health Maintenance Due Date Last Done Comments DTAP/TDAP/TD VACCINES (1 - Tdap) 1975 PNEUMOCOCCAL VACCINE 50+ YEARS (1 of 2 - PCV) 07/16/19 75 BREAST CANCER SCREENING 1996 COLORECTAL SCREENING 2001 Colorectal Cancer Screening 2001 FIT-DNA Q 3 years 2001 FIT/FOBT Q 1 year 2001 Flex Sig/CT Colonography Q 5 years 2001 ZOSTER VACCINE (1 of 2) 2006 OSTEOPOROSIS SCREENING 2021 INFLUENZA VACCINE (#1) 2025 RSV VACCINE (60+ or ) (1 - 1-dose 75+ series) 2031 Medical Devices Implanted Type Area Livestock Feeder Device Identifier Shelf Expiration Date Model / Serial / Lot Clip Ligating Horizon Med Ti [id number] - [facility] - [id number] Implanted:Qty: 1 on 08/21/2024 by Nelida Fisher DO at [facility] Clip Right: Neck TELEFLEX- WECK CLOSURE SYS [id number] 03/05/2029 [id number] / / [id number] Clip Ligating Horizon Red [id number] - [facility] - [id number] Implanted:Qty: 1 on 08/21/2024 by Nelida Fisher DO at [facility] Clip Right: Neck [employer] [id number] 03/03/2029 [id number] / / [id number] Agent Hemostat Surgicel 2x3in - [id number] Implanted:Qty: 1 on 08/21/2024 by Nelida Fisher DO at [facility] Hemostatic Right: Neck [employer]- [employer] [id number] 10/22/20281952S / / [id number] Stent Vasc Enroute 9x30mm Sr-0930-Cs - [id number] Implanted:Qty: 1 on 08/21/2024 by Nelida Fisher DO at [facility] Stent Right: Carotid SILKROAD [id number] 09/21/2026 SR-0930- CS / / [id number] Insurance MEDICARE PART A AND B Advance Directives For more information, please contact: [phone] * Full Code (Latest Code Status on File) Date Activated Date Inactivated Comments 08/21/2024 10:23 AM 08/22/2024 2:49 PM * Full Code Date Activated Date Inactivated Comments 01/11/2024 5:50 AM 01/16/2024 8:20 PM Care Teams Head Of Science Relationship Specialty Start Date End Date Delio Riddle DO [address] [facility] [address] [place] [address] PCP - General Internal Medicine 01/11/24
--- OUTSIDE RECORDS SUMMARY | 2025-10-12 20:06 | XMS_ITS | Clinical Summary ---
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
--- OUTSIDE RECORDS SUMMARY | 2025-10-12 20:06 | XMS_ITS | Encounter Summary ---
Author Organization [facility] Address [address] [place] [address] Care Team Providers Care Wastewater Treatment Operator Name Role Phone Unavailable Primary Care Provider Unavailabl e Encounter Details Date Type Department Care Team (Latest Contact Info) Description 08/08/2006 [facility]patient [facility] [address] [place] [id number] Ryan Arango MD NO ADDRESS ON FILE Contact Dermatitis and Other Eczema, due to Unspecified Cause (Primary Dx) Social History Tobacco Use Types Packs/Day Years Used Date Smoking Tobacco: Never Assessed Comments Unknown Sex and Gender Information Value Date Recorded Sex Assigned at Not on file 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
--- OUTSIDE RECORDS SUMMARY | 2025-10-12 20:06 | XMS_ITS | Patient Health Record ---
Author Organization [facility] Address [address] [place] [address] Care Team Providers Care Siphon Operator Name Role Phone Lucrecia Franco Primary Care Provider LUCRECIA FRANCO Unavailable Unavailable Allergies No Known Allergies Reason For Referral No Information Medications Medication SIG (Take, Route, Frequency, Duration) Notes Start Date End Date Status Metoprolol Tartrate 25 mg Tablet TAKE ONE TABLET BY MOUTH ONCE DAILY with food; Duration: 30 Active Lisinopril 20 mg Tablet TAKE ONE TABLET BY MOUTH ONCE DAILY; Duration: 30 Active amLODIPine Besylate 5 mg Tablet TAKE ONE TABLET BY MOUTH ONCE DAILY; Duration: 30 Active Cyclobenzaprine HCl 10 mg Tablet TAKE 1 TABLET BY MOUTH EVERY NIGHT AT BEDTIME NEEDED; Duration: 30 Active hydroCHLOROthiazide 25 mg Tablet TAKE ONE TABLET BY MOUTH EVERY MORNING; Duration: 30 Active Atorvastatin Calcium 80 mg Tablet TAKE ONE TABLET BY MOUTH ONCE DAILY; Duration: 30 Active Clopidogrel Bisulfate 75 mg Tablet TAKE ONE TABLET BY MOUTH ONCE DAILY; Duration: 30 Active HYDROcodone-Acetaminophen 5-325 MG Tablet 1 tablet as needed Orally every 6 hrs Active Aspirin 325 MG Tablet 1 tablet Orally Once a day Not-Taking Omeprazole 20 mg Capsule Delayed Release TAKE ONE CAPSULE BY MOUTH EVERY MORNING 30 MINUTES BEFORE MORNING MEAL; Duration: 30 Active hydrALAZINE HCl 25 MG Tablet 1 tablet wi th food Orally Three times a day; Duration: 30 days Not-Taking buPROPion HCl ER (SR) 100 mg Tablet Extended Release 12 Hour TAKE ONE TABLET BY MOUTH EVERY MORNING; Duration: 30 Active Immunizations Vaccine Route Administration Date Status Comme nts Flucelvax Trivalent, Syringe 0.5 mL, PF Unknown 08/27/2024 Refused Flucelvax Trivalent, Syringe 0.5 mL, PF IM Intramuscular 09/17/2024 Administered Patient tolerat ed well. Social History Tobacco Use: Social History Observation Description Date Details (start date - stop date) Current Smoker NA - NA Social History Depression Screening Social Info Question Answer Notes PHQ-9 Little interest or pleasure in doing thin gs Not at all Feeling down, depressed, or hopeless Not at all Trouble falling or staying asleep, or sleeping t oo much Not at all Feeling tired or having little energy Not at all Poor appetite or overeating Not at all Feeling bad about yourself, or that you are a failure, or have let yourself or your family down Not at all Trouble concentrating on thi ngs, such as reading the newspaper or watching television Not at all Moving or speaking so slowly that other people could have noticed. Or the opposite ? being so fidgety or restless that you have been moving around a lot more than usual Not at all Thoughts that you would be b darcy off , or of hurting yourself in some way Not at all Total Score 0 Drug/Alcohol: Social Info Question Answer Notes AUDIT-C (Standard) Did you have a drink containing alcohol in the past year? No Points 0 Interpretation Negative Tobacco Use: Social Info Question Answer Notes Tobacco Control (Standard) Tobacco use: Current smoker Section Notes: 01/24/24 PHQ9 01/24/24 PHQ9 01/24/24 PHQ9 01/24/24 PHQ9 01/24/24 PHQ9 01/24/24 PHQ9 01/24/24 PHQ9 01/24/24 PHQ9 01/24/24 PHQ9 01/24/24 PHQ9 02/25/25 PHQ9 Problems Problem Type SNOMED Code ICD Code Onset Dates Problem Status W/U Status Risk Notes Problem Sciatica (55594902) Right sided sciatica (M54.31) Active confirmed Problem CVA - Cerebrovascular accident (848715957) CVA (cerebral vascular accident) (I63.9) Active confirmed Problem Hyperlipidaemia (62698733) Hyperlipemia (E78.5) Active confirmed Problem COPD - Chronic obstructive pulmonary disease (83054695) COPD (chronic obstructive pulmonary disease) (J44.9) Active confirmed Problem Hypertension (01632811) Hypertension (I10) Active confirmed Problem Tobacco dependence (53878101) Tobacco dependence (F17.200) Active confirmed Problem Gastroesophageal reflux disease (042823230) GERD (gastroesophage al reflux disease) (K21.9) Active confirmed Problem Right carotid artery occlusion (364825207561635) Right carotid artery occlusion (I65.21) Active confirmed Problem Sense of smell altered (finding) (937624682) Smell disturbance (R43.9) Active confirmed Vital Signs Heart Rate 83 /min 02/25/2025 Temperature 98.4 degrees Fahrenheit 02/25/2025 Respiratory Rate 20 /min 02/25/2025 Blood pressure diastolic 78 mm Hg 02/25/2025 Oximetry 93 % 02/25/2025 Height-cm 152.4 cm 02/25/2025 Weight-kg 44.36 kg 02/25/2025 Height 60 in 02/25/2025 Blood pressure systolic 128 mm Hg 02/25/2025 Weight 97.8 lbs 02/25/2025 BMI 19.1 kg/m2 02/25/2025 Encounters Encounter Location Date Provider Diagnosis [address] [address] 10/14/2024 Lucrecia Franco Hypertension I10 and Leg muscle spasm M62.[address] [address] 02/25/2025 Lucrecia Franco Laceration of finger of left hand without foreign body without damage to nail, unspecified finger, subsequent encounter S61.219D ; Right shoulder pain M25.511 ; History of recent fall Z91.81 and Depression screen Z13.[address] [address] 11/20/2024 Lucrecia Franco Encounter for Medicare annual wellness exam Z00.00 ; Hypertension I10 ; Hyperlipemia E78.5 ; CVA (cerebral vascular accident) I63.9 and COPD (chronic obstructive pulmonary disease) J44.9 [facility] [address] [address] 11/28/2024 Lucreciazeus Franco Right sided sciatica M54.31 and Hyperlipemia E78.5 Assessments Encounter Date Diagnosis (ICD Code) Assessment Notes Treatment Notes Treatment Clinical Notes Section Notes 02/25/2025 Right shoulder pain (ICD-10 - M25.511) If does not improve will send for imaging. 02/25/2025 Laceration of finger of left hand without foreign body without damage to nail, unspecified finger, subsequent encounter (ICD-10 - S61.219D) Keep area clean and dry. Take all antibiotic as directed. RTC next week if not improving or with any concerns. 11/28/2024 Right sided sciatica (ICD-10 - M54.31) If does not improve she will need to have imaging. 11/28/2024 Hyperlipemia (ICD-10 - E78.5) 11/20/2024 Encounter for Medicare annual wellness exam (ICD-10 - Z00.00) Please schedule your next AWV in 1 year. 11/20/2024 Hypertension (ICD-10 - I10) Stable, continue same. 10/14/2024 Hypertension (ICD-10 - I10) Increase Metoprolol to 25 mg 2 tabs daily, monitor BP at home, recheck in 2 weeks. 10/14/2024 Leg muscle spasm (ICD-10 - M62.838) 11/20/2024 Hyperlipemia (ICD-10 - E78.5) Continue same 02/25/2025 History of recent fall (ICD-10 - Z91.81) 11/20/2024 CVA (cerebral vascular accident) (ICD-10 - I63.9) Keep apt with specialist as scheduled. 02/25/2025 Depression screen (ICD-10 - Z13.31) 11/20/2024 COPD (chronic obstructive pulmonary disease) (ICD-10 - J44.9) Stable. Plan Of Treatment No Information Insurance Providers Payer Name Payer Address Payer Phone Subscriber Number Group Number Insured Name Patient Relationship to Insured Coverage Start Date Coverage End Date [place] [address] [place] [phone] [id number] Debbie Peres Self - patient is the insured Medical (General) History Medical History History ICD Code hypertension stroke aneurysm Surgical History Surgery Date(Month/Year) aneurysm repair coil and shunt heart stents Hospitalization History Reason Date(Month/Year) [facility] hip fracture 08/2024 [facility]- stroke 12/2023
--- NOTE | 2025-10-12 20:45 | XRR_ITS ---
PROCEDURE INFORMATION: Exam: XR Chest Exam date and time: 10/12/2025 8:57 PM Age: 70 years old Clinical indication: Shortness of breath; Additional info: SOB TECHNIQUE: Imaging protocol: Radiologic exam of the chest. Views: 1 view. COMPARISON: CR XR chest 1V portable [id number] 09/10/2024 12:02 PM FINDINGS: Lungs: Unremarkable. No consolidation. Pleural spaces: Unremarkable. No pleural effusion. No pneumothorax. Heart/Mediastinum: Unremarkable. No cardiomegaly. Bones/joints: Mild levoscoliosis of the thoracic spine. Prior chronic clavicle fracture. XR/XR chest 1V portable [id number] IMPRESSION: No acute cardiopulmonary findings.
--- NOTE | 2025-10-12 20:45 | CTR_ITS ---
PROCEDURE INFORMATION: Exam: CT Abdomen And Pelvis Without Contrast Exam date and time: 10/12/2025 9:58 PM Age: 70 years old Clinical indication: Nausea and vomiting; Abdominal pain; Localized; Prior surgery; Surgery date: 6+ months; Surgery type: RT hip; C/O upper abd pain with n/v; Additional info: Nv, upper abd pain TECHNIQUE: Imaging protocol: Computed tomography of the abdomen and pelvis without contrast. Radiation optimization: All CT scans at this facility use at least one of these dose optimization techniques: automated exposure control; mA and/or kV adjustment per patient size (includes targeted exams where dose is matched to clinical indication); or iterative reconstruction. COMPARISON: CR XR hip RT 2-3V wo/w pel* [id number] 12/12/2024 3:27 PM RADIATION DOSE METRICS: Total DLP (mGy-cm): 980.95 FINDINGS: Lungs: Unremarkable. Liver: Normal. No mass. Gallbladder and biliary ducts: Distended gallbladder. Pancreas: Normal. No ductal dilation. Spleen: Normal. No splenomegaly. Adrenal glands: Normal. No mass. Kidneys and ureters: Right kidney appears atrophic. No hydronephrosis or obstructing calculi bilaterally. Stomach and bowel: Multiple nondilated fluid-filled loops of small bowel. Large colonic stool burden. Appendix: No evidence of appendicitis. Intraperitoneal space: Unremarkable. No free air. No significant fluid collection. Vasculature: Severe atherosclerosis of the abdominal aorta. Lymph nodes: Unremarkable. No enlarged lymph nodes. Urinary bladder: Unremarkable as visualized. Reproductive: Unremarkable as visualized. Bones/joints: Severe multilevel degenerative changes within visualized spine. Prominent scoliosis with multilevel vertebral body spurring, degenerative disc disease and facet arthropathy. No compression deformity. Intramedullary lizeth and femoral neck screw are present. Soft tissues: Unremarkable. CT/CT abdomen pelvis wo con [id number] IMPRESSION: Few fluid-filled loops of small bowel, nonspecific finding but may be seen with enteritis of infectious or inflammatory etiology. No small bowel obstruction.
--- NOTE | 2025-10-12 20:45 | CTR_ITS ---
PROCEDURE INFORMATION: Exam: CTA Head With Contrast, Arteriography Exam date and time: 10/12/2025 10:02 PM Age: 70 years old Clinical indication: Pain; Other: Hypertensive; Headache; Prior surgery; Surgery date: 6+ months; Surgery type: Aneurysm coil. RT carotid endarterectomy; C/O BAINS with hypertension. History of posterior circulation aneurysm. ; Additional info: Prev aneurysm with coiling, new BAINS and very hypertensive TECHNIQUE: Imaging protocol: Computed tomographic angiography of the head with contrast. Exam focused on the arteries. 3D rendering (Not supervised by radiologist): MIP and/or 3D reconstructed images were created by the technologist. Radiation optimization: All CT scans at this facility use at least one of these dose optimization techniques: automated exposure control; mA and/or kV adjustment per patient size (includes targeted exams where dose is matched to clinical indication); or iterative reconstruction. Contrast material: OMNI 350; Contrast volume: 85 ml; Contrast route: INTRAVENOUS (IV); COMPARISON: CT angio headneck* [id number] 02/15/2024 9:39 PM RADIATION DOSE METRICS: Total DLP (mGy-cm): 873.37 FINDINGS: ANTERIOR CIRCULATION: Right internal carotid artery: Intracranial segment is patent with no significant stenosis. No aneurysm. Right middle cerebral artery: No occlusion or significant stenosis. No aneurysm. Right anterior cerebral artery: No occlusion or significant stenosis. No aneurysm. Left internal carotid artery: Intracranial segment is patent with no significant stenosis. No aneurysm. Left middle cerebral artery: No occlusion or significant stenosis. No aneurysm. Left anterior cerebral artery: No occlusion or significant stenosis. No aneurysm. POSTERIOR CIRCULATION: Right vertebral artery: No occlusion or significant stenosis. No aneurysm. Left vertebral artery: No occlusion or significant stenosis. No aneurysm. Basilar artery: Status post coiling of basilar tip aneurysm without residual aneurysm or vascular malformation. Bilateral posterior cerebral arteries are visualized without gopi evidence of occlusion. Their origin are not well evaluated due to beam hardening artifact from the aneurysm coil. Overall, no change since prior study. Right posterior cerebral artery: No occlusion or significant stenosis. No aneurysm. Left posterior cerebral artery: No occlusion or significant stenosis. No aneurysm. Brain: 1.6 cm chronic superior left cerebellar stroke. Extensive supratentorial white matter disease. Cerebral ventricles: No ventriculomegaly. Bones/joints: Unremarkable. No acute fracture. Soft tissues: Unremarkable. PROCEDURE INFORMATION: Exam: CTA Neck With Contrast Exam date and time: 10/12/2025 10:02 PM Age: 70 years old Clinical indication: Pain; Other: Hypertensive; Headache; Prior surgery; Surgery date: 6+ months; Surgery type: Aneurysm coil. RT carotid endarterectomy; C/O BAINS with hypertension. History of posterior circulation aneurysm. ; Additional info: Prev aneurysm with coiling, new BAINS and very hypertensive TECHNIQUE: Imaging protocol: Computed tomographic angiography of the neck with contrast. Exam focused on the cervical segments of the vasculature. 1 image(s) are submitted. 3D rendering (Not supervised by radiologist): MIP and/or 3D reconstructed images were created by the technologist. Radiation optimization: All CT scans at this facility use at least one of these dose optimization techniques: automated exposure control; mA and/or kV adjustment per patient size (includes targeted exams where dose is matched to clinical indication); or iterative reconstruction. Contrast material: OMNI 350; Contrast volume: 85 ml; Contrast route: INTRAVENOUS (IV); COMPARISON: CT angio headneck* [id number] 02/15/2024 9:39 PM RADIATION DOSE METRICS: Total DLP (mGy-cm): 873.37 FINDINGS: Right common carotid artery: status post right-sided stent placement through distal right common carotid artery extending into the proximal internal carotid artery without restenosis, new since prior study. 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 Small caliber right vertebral artery is seen starting at C3 level. There is up to 70% stenosis in the origin of left-sided vertebral artery, unchanged. Right internal carotid artery: See Right common carotid artery finding. Right external carotid artery: No occlusion or stenosis of the origin. Left common carotid artery: No stenosis. No dissection or occlusion. Left internal carotid artery: No stenosis of the extracranial segment. No dissection or occlusion. Left external carotid artery: No occlusion or stenosis of the origin. Right vertebral artery: See Right common carotid artery finding. Left vertebral artery: See Right common carotid artery finding. Soft tissues: Normal. No significant soft tissue swelling. Bones/joints: No acute fracture. CT/CT angio headneck* [id number] IMPRESSION: 1. 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 Extensive supratentorial white matter disease. 2. Status post coiling of basilar tip aneurysm without residual aneurysm or vascular malformation. Bilateral posterior cerebral arteries are visualized without gopi evidence of occlusion. Their origin are not well evaluated due to beam hardening artifact from the aneurysm coil. Overall, no change since prior study. IMPRESSION: Status post right-sided stent placement through distal right common carotid artery extending into the proximal internal carotid artery without restenosis, new since prior study. 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 Small caliber right vertebral artery is seen starting at C3 level. There is up to 70% stenosis in the origin of left-sided vertebral artery, unchanged. REFERENCES: NASCET CRITERIA. The degree of stenosis in the cervical segment of the internal carotid artery is based on NASCET criteria. Normal is no stenosis. Mild is less than 50% stenosis. Moderate is 50-69% stenosis. Severe is 70% to 99% stenosis. Total occlusion is no detectable patent lumen.
--- NOTE | 2025-10-12 20:56 | ECG_ITS ---
[employer] [facility] Test Date: 2025-10-12 Pat Name: Debbie Peres Department: Room: Gender: Female Instrument Operator: : [id number] Requested By: Kike Ball Order Number: [id number] Reading MD: CARLOS ESQUEDA Measurements Intervals [place] Rate: 105 P: 0 VT: 0 QRS: 67 QRSD: 74 T: 52 QT: 312 QTc: 413 Interpretive Statements ATRIAL FIBRILLATION WITH RAPID VENTRICULAR RESPONSE ABNORMAL RHYTHM ECG Compared to ECG 09/10/2024 12:44:40 Sinus rhythm no longer present Sinus arrhythmia no longer present T-wave abnormality no longer present Electronically Signed On 10-14-2025 12:00:23 JUNIOR NETWORK ENGINEER by CARLOS ESQUEDA [id number] [id number]
[2025-10-12] MEDS: labetalol 5 mg/mL SDV 20mL 10 MG IVP (21:19)
[2025-10-12] MEDS: diphenhydrAMINE 50 mg/mL SDV 1mL 12.5 MG IVP (21:20)
--- NOTE | 2025-10-12 21:24 | W.ED.HA ---
HPI - Headache General: Chief Complaint: Headache Stated Complaint: n/v headache HBP Time Seen by Provider: 10/12/25 20:24 History of Present Illness: Patient is a 70-year-old female with a history of cerebral aneurysm (treated with coiling twice and stent placement in 2006), COPD, A-fib on anticoagulation who presents with a 3-week history of persistent headache and generalized malaise. She has been largely bedbound today per her daughter, and reports frequent vomiting over the past week, including yesterday. She also endorses cough and increased secretions, but denies fever and abdominal pain. She took her lisinopril today but not metoprolol. No recent documented fevers, chills, diaphoresis, she has not recently been on antibiotics or steroids. The headache has been progressive in onset and not abrupt, is described as generalized and sharp Related Data Home Medications ?Medication ?Instructions ?Recorded ?Confirmed metoprolol tartrate 25 mg tablet 25 mg PO DAILY 02/16/24 10/13/25 bupropion HCl 100 mg tablet,12 hr 100 mg PO DAILY 04/01/24 10/13/25 sustained-release (Wellbutrin SR) lisinopril 20 mg tablet 20 mg PO DAILY 09/10/24 10/13/25 omeprazole 20 mg capsule,delayed 20 mg PO DAILY 09/10/24 10/13/25 release acetaminophen 500 mg tablet 500 mg PO Q6H PRN Pain 10/13/25 10/13/25 calcium carbonate 500 mg PO TID PRN Indigestion 10/13/25 10/13/25 jgplqng-fakfgoqri-zcgl-herb 1 tab PO DAILY 10/13/25 10/13/25 no.122-vitamin D3 250 mg-125 mg tablet cyclobenzaprine 10 mg tablet 10 mg PO BEDTIME PRN Muscle Spasm 10/13/25 10/13/25 multivitamin 1 tab PO DAILY 10/13/25 10/13/25 potassium 99 mg tablet 99 mg PO DAILY 10/13/25 10/13/25 Previous Rx's ?Medication ?Instructions ?Recorded albuterol sulfate 90 mcg/actuation 2 puff inhalation QID PRN 01/01/24 aerosol inhaler shortness of breath or wheezing #6.7 grams atorvastatin 40 mg tablet 80 mg (2 x 40 mg) PO DAILY #30 tabs 04/28/24 clopidogrel 75 mg tablet 75 mg PO DAILY #30 tabs 02/18/24 aspirin 325 mg capsule 325 mg PO DAILY #30 caps 09/12/24 Allergies Allergy/AdvReac Type Severity Reaction Status Date / Time No Known Allergies Allergy Verified 10/29/24 13:50 Review of Systems General: Reports: 10 or more systems reviewed and unremarkable except in HPI and below PFSH ED PFS: Medical History (Updated 10/13/25 @ 06:08 by Kike Ball DO) Paroxysmal atrial fibrillation Noted post R CEA 07/2024, on one EKG 12/2023, NOT seen on 21 day holter in 02/2024 History of fracture of wrist left Dyslipidemia History of Holter monitoring 02/2024 21 day monitorin, baseline sinus jose david at 55 bpm, occasional supraventricular and rare ventricular ectopic beats. No atrial arrhythmias noted. Hypertension Posterior reversible encephalopathy syndrome (PRES) 01/2024 COPD (chronic obstructive pulmonary disease) Occlusion of both vertebral arteries History of echocardiogram 02/2024 [facility] EF 60-65%, no R>L shunt, mild MR, mild TR, grade 1 diastolic dysfunction Atrial arrhythmia Brain aneurysm 2015 and 2016, treated with stents/coils Carotid stenosis, right 12/2023 70%-80%, underwent right CEA in 07/2024 Hypertensive emergency 12/2023 CVA (cerebral vascular accident) 12/2023 right hemiparesis Surgical History History of right-sided carotid endarterectomy (08/21/24) with EnRoute transcarotid stent placement, done at [facility] H/O hand surgery right hand S/P cerebral aneurysm repair Family History Brother Cancer Father CAD (coronary artery disease) Mother Dementia Family/Other Anesthesia complication niece Denies family history of Diabetes Bleeding disorder Social History (Updated 10/13/25 @ 02:01 by Jae Garrett MD) Smoking and tobacco/nicotine status: current every day tobacco/nicotine user cigarettes Packs smoked per day: 1 Years cigarettes smoked: 50 [ Other cigarette details: trying to quit] Alcohol intake: former Substance/Drug Use: current Other substance/drug use details: Occasional THC gummies Additional social history: Patient denied weed or meth use to me she lives with her daughter is disabled and 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 She wants full CODE STATUS as discussed with Jae Garrett MD on 10/13/2025 Lives independently: No Household members: family Housing: House Marital status: Single Number of children: 2 Pets and animals: Yes Pets & animals: cat(s) and dog(s) Physical Exam Narrative: EXAM NARRATIVE: Patient frail but overall well-appearing, afebrile, tachycardic and hypertensive but in no acute distress. In A-fib rhythm in 110s, hypertensive, no leg swelling, 2+ pulses throughout, good cap refill. Breathing very mildly labored on room air, decreased breath sounds and mild end expiratory wheezes, mild nasal congestion referred, able to speak in full sentences without getting short of breath, no signs of respiratory distress. Abdomen soft, mild diffuse tenderness, no distention, no CVA tenderness. Course Vital Signs: Vital signs: Vital Signs Temperature 97.6 F 10/13/25 04:00 Pulse Rate 72 10/13/25 05:52 Respiratory Rate 18 10/13/25 04:00 Blood Pressure 147/84 10/13/25 04:00 Pulse Oximetry 96 10/13/25 04:27 Oxygen Delivery Me thod Room Air 10/13/25 04:27 MDM - Headache Medical Decision Making -ddx: SAH, migraine, tension headache, URI, sinusitis, pneumonia, COPD exacerbation, enteritis, dehydration, A-fib - Patient arrives with 3 weeks of symptoms, headache has seemingly become progressive and had some vomiting with little abdominal pain, will evaluate with infectious, cardiac labs, get CTA of her brain because of complex aneurysm history, abdomen pelvis as well, treat her headache, and with labetalol for hypertension and reassess. - Patient's blood pressure and tachycardia seem to resolved with labetalol, CT head was negative for any bleed, mass, showed good positioning of her prior coiling from her aneurysm. Her remainder of workup showed that she had moderate hypotonic, hypovolemic hyponatremia most likely in setting of her gastritis which made sense clinically with her few days of nausea vomiting and abdominal pain. She did not appear septic, her vitals normalized and so she did not require antibiotics at this time with most likely a viral gastroenteritis being the culprit but for her symptomatic hyponatremia and comorbid patient, she was admitted to the hospitalist for definitive management. Daughter at bedside and agreeable with plan of care, patient in stable condition at time of admission. Lab Data 10/12/25 21:00 10/12/25 21:00 Radiology Impressions Abdomen/Pelvis CT 10/12/25 20:45 IMPRESSION: Few fluid-filled loops of small bowel, nonspecific finding but may be seen with enteritis of infectious or inflammatory etiology. No small bowel obstruction. Chest X-Ray 10/12/25:45 IMPRESSION: No acute cardiopulmonary findings. Head/Neck CTA 10/12/25 20:45 IMPRESSION: 1. 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 Extensive supratentorial white matter disease. 2. Status post coiling of basilar tip aneurysm without residual aneurysm or vascular malformation. Bilateral posterior cerebral arteries are visualized without gopi evidence of occlusion. Their origin are not well evaluated due to beam hardening artifact from the aneurysm coil. Overall, no change since prior study. IMPRESSION: Status post right-sided stent placement through distal right common carotid artery extending into the proximal internal carotid artery without restenosis, new since prior study. 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 Small caliber right vertebral artery is seen starting at C3 level. There is up to 70% stenosis in the origin of left-sided vertebral artery, unchanged. REFERENCES: NASCET CRITERIA. The degree of stenosis in the cervical segment of the internal carotid artery is based on NASCET criteria. Normal is no stenosis. Mild is less than 50% stenosis. Moderate is 50-69% stenosis. Severe is 70% to 99% stenosis. Total occlusion is no detectable patent lumen. Laboratory Results WBC 22.10 10^3/uL (3.29-11.43) H 10/12/25 21:00 WBC Cancelled 10/12/25 21:00 Corrected WBC Cancelled 10/12/25 21:00 RBC 5.03 10^6/uL (3.85-5.65) 10/12/25 21:00 RBC Cancelled 10/12/25 21:00 Hgb 14.60 g/dL (11.27-16.99) 10/12/25 21:00 Hgb Cancelled 10/12/25 21:00 Hct 42.2 % (36-47) 10/12/25 21:00 Hct Cancelled 10/12/25 21:00 MCV 83.9 fl (85-98) L 10/12/25 21:00 MCV Cancelled 10/12/25 21:00 MCH 29.0 pg (27-33) 10/12/25 21:00 MCH Cancelled 10/12/25 21:00 MCHC 34.6 g/dL (30-55) 10/12/25 21:00 MCHC Cancelled 10/12/25 21:00 RDW 12.3 % (12.1-15.1) 10/12/25 21:00 RDW Cancelled 10/12/25 21:00 Plt Count 329 10^3/cmm (157-399) 10/12/25 21:00 Plt Count Cancelled 10/12/25 21:00 MPV 10.0 fL (7.4-10.4) 10/12/25 21:00 MPV Cancelled 10/12/25 21:00 Gran % Cancelled 10/12/25 21:00 Neut % (Auto) 83.1 % 10/12/25 21:00 Neut % (Auto) Cancelled 10/12/25 21:00 Lymph % (Auto) 6.8 % 10/12/25 21:00 Lymph % (Auto) Cancelled 10/12/25 21:00 Rogers % (Auto) 9.1 % 10/12/25 21:00 Rogers % (Auto) Cancelled 10/12/25 21:00 Eos % (Auto) 0.0 % 10/12/25 21:00 Eos % (Auto) Cancelled 10/12/25 21:00 Baso % (Auto) 0.3 % 10/12/25 21:00 Baso % (Auto) Cancelled 10/12/25 21:00 Neut # (Auto) 18.36 10^3/uL (1.8-7.7) H 10/12/25 21:00 Neut # (Auto) Cancelled 10/12/25 21:00 Lymph # (Auto) 1.5 10^3/uL (0.8-4.8) 10/12/25 21:00 Lymph # (Auto) Cancelled 10/12/25 21:00 Rogers # (Auto) 2.0 10^3/uL (0.2-0.9) H 10/12/25 21:00 Rogers # (Auto) Cancelled 10/12/25 21:00 Eos # (Auto) 0.0 10^3/uL (0.0-0.8) 10/12/25 21:00 Eos # (Auto) Cancelled 10/12/25 21:00 Baso # (Auto) 0.1 10^3/uL (0.0-0.1) 10/12/25 21:00 Baso # (Auto) Cancelled 10/12/25 21:00 Absolute Gran (auto) Cancelled 10/12/25 21:00 Nucleated RBC % (auto) 0 % 10/12/25 21:00 Nucleated RBC % (auto) Cancelled 10/12/25 21:00 Nucleated RBCs # 0.0 /100WBC 10/12/25 21:00 Nucleated RBCs # Cancelled 10/12/25 21:00 Sodium 126 mmol/L (136-145) L 10/12/25 21:00 Sodium Cancelled 10/12/25 21:00 Potassium 4.3 mmol/L (3.5-5.1) 10/12/25 21:00 Potassium Cancelled 10/12/25 21:00 Chloride 88 mmol/L (98-107) L 10/12/25 21:00 Chloride Cancelled 10/12/25 21:00 Carbon Dioxide 20 mmol/L (22-29) L 10/12/25 21:00 Carbon Dioxide Cancelled 10/12/25 21:00 Anion Gap 22.3 (5-19) H 10/12/25 21:00 Anion Gap Cancelled 10/12/25 21:00 BUN 20 mg/dL (8-23) 10/12/25 21:00 BUN Cancelled 10/12/25 21:00 Creatinine 1.0 mg/dL (0.5-0.9) H 10/12/25 21:00 Creatinine Cancelled 10/12/25 21:00 GFR Calculation 55.0 mL/min (90-130) L 10/12/25 21:00 GFR Calculation Cancelled 10/12/25 21:00 Glucose 99 mg/dL (65-115) 10/12/25 21:00 Glucose Cancelled 10/12/25 21:00 Calculated Osmolality 265 mOsm/kg (285-295) L 10/12/25 21:00 Calculated Osmolality Cancelled 10/12/25 21:00 Lactic Acid 1.8 mmol/L (0.5-2.2) 10/12/25 21:00 Lactic Acid Cancelled 10/12/25 21:00 Calcium 9.0 mg/dL (8.5-10.5) 10/12/25 21:00 Calcium Cancelled 10/12/25 21:00 Magnesium 1.3 mg/dL (1.7-2.3) L 10/12/25 21:00 Magnesium Cancelled 10/12/25 21:00 Total Bilirubin 0.6 mg/dL (0.15-1.2) 10/12/25 21:00 Total Bilirubin Cancelled 10/12/25 21:00 AST 38 U/L (0-32) H 10/12/25 21:00 AST Cancelled 10/12/25 21:00 ALT 19 U/L (0-33) 10/12/25 21:00 ALT Cancelled 10/12/25 21:00 Alkaline Phosphatase 89 U/L (35-105) 10/12/25 21:00 Alkaline Phosphatase Cancelled 10/12/25 21:00 Troponin T Baseline 23 ng/L (0-10) H 10/12/25 21:00 Troponin T Baseline Cancelled 10/12/25 21:00 Troponin T 60 Minute 23.10 ng/L (0-10) H 10/12/25 21:43 Delta Troponin T 0.10 ABS# (0-10) 10/12/25 21:43 C-Reactive Protein 47.1 mg/L (0.0-4.9) H 10/12/25 21:00 C-Reactive Protein Cancelled 10/12/25 21:00 NT-Pro-B Natriuret Pep 1924 pg/mL (0-125) H 10/12/25 21:00 NT-Pro-B Natriuret Pep Cancelled 10/12/25 21:00 Total Protein 6.5 g/dL (6.6-8.7) L 10/12/25 21:00 Total Protein Cancelled 10/12/25 21:00 Albumin 3.8 g/dL (3.5-5.2) 10/12/25 21:00 Albumin Cancelled 10/12/25 21:00 Globulin 2.7 g/dL (1.3-4.6) 10/12/25 21:00 Globulin Cancelled 10/12/25 21:00 Lipase 22 U/L (13-60) 10/12/25 21:00 Lipase Cancelled 10/12/25 21:00 All radiology interpretation(s) finalized by discharge Discharge Plan Discharge Patient Disposition: Admitted As Inpatient Admit Provider: Jae Garrett Clinical Impression: Acute hyponatremia, Colitis Condition: Stable Coding Level of Care Code ED Crime Investigator Special Agent for Soledad Marrero
[2025-10-12 21:25] LABS: Hematocrit 42.2 % (36-47); Hemoglobin 14.60 g/dL (11.27-16.99); Mean Corpuscular HGB Conc 34.6 g/dL (30-55); Mean Corpuscular Hemoglobin 29.0 pg (27-33); Mean Corpuscular Volume 83.9 fl (85-98); Nucleated Red Blood Cells % 0 %; Platelet Count 329 10^3/cmm (157-399); Red Blood Count 5.03 10^6/uL (3.85-5.65); White Blood Count 22.10 10^3/uL (3.29-11.43)
[2025-10-12 21:40] LABS: Lactic Sepsis W/Reflex 1.8 mmol/L (0.5-2.2)
[2025-10-12 21:43] LABS: Troponin(5th) Baseline 23 ng/L (0-10)
--- NOTE | 2025-10-12 21:45 | PC.NURSE ---
patient notified that we need a urine sample she does not need to urinate at this time but will let us know when she needs to go so we can collect a sample
--- NOTE | 2025-10-12 21:49 | ECG_ITS ---
[facility]12 Pat Name: Debbie Peres Department: Room: Gender: Female Pool Table Operator: : 1955 Requested By: Kike Ball Order Number: [id number] Reading MD: CARLOS ESQUEDA Measurements Intervals [place] Rate: 90 P: 83 WA: 142 QRS: 68 QRSD: 70 T: 59 QT: 337 QTc: 414 Interpretive Statements SINUS RHYTHM WITH OCCASIONAL SUPRAVENTRICULAR PREMATURE COMPLEXES Compared to ECG 10/12/2025 20:56:27 Atrial fibrillation no longer present Electronically Signed On 10-15-2025 20:44:58 TRAVEL AGENCY MANAGER by CARLOS ESQUEDA [id number] [id number]
[2025-10-12 21:50] LABS: Alanine Aminotransferase 19 U/L (0-33); Albumin Level 3.8 g/dL (3.5-5.2); Alkaline Phosphatase 89 U/L (35-105); Anion Gap 22.3 (5-19); Aspartate Amino Transferase 38 U/L (0-32); Blood Urea Nitrogen 20 mg/dL (8-23); Calcium 9.0 mg/dL (8.5-10.5); Carbon Dioxide 20 mmol/L (22-29); Chloride 88 mmol/L (98-107); Globulin 2.7 g/dL (1.3-4.6); Glucose 99 mg/dL (65-115); Lipase 22 U/L (13-60); Magnesium 1.3 mg/dL (1.7-2.3); NT Pro B Type Natriuretic Pept 1924 pg/mL (0-125); Osmolality Calculated 265 mOsm/kg (285-295); Potassium 4.3 mmol/L (3.5-5.1); Sodium 126 mmol/L (136-145); Total Protein 6.5 g/dL (6.6-8.7)
[2025-10-12] MEDS: iohexol 350 mg/mL 500 mL Btl (per mL) IV (22:05)
[2025-10-12] MEDS: magnesium sulfate premix 2 GM/50 ML PIGGYBACK IV (23:20)
[2025-10-13] VITALS (12 sets, daily range): BP systolic 104–182; BP diastolic 63–134; PULSE 66–85; RESP 16–24; TEMP 36.4–36.8; O2SAT 90–97; BMI 2579.7
--- NOTE | 2025-10-13 01:54 | PM.HP ---
Providers/Chief Complaint Admitting Physician: Jae Garrett MD Primary Care Provider: Lucrecia Franco APN Chief Complaint: n/v headache HBP History of Present Illness Debbie Peres is a 70 year old female with history of brain aneurysm post coil as well as right carotid stenosis post carotid stent 2023 comes in with elevated blood pressure and headache. She was treated with labetalol in the emergency department. Patient did not take her metoprolol at home. She states she has missed her medicines for about 3 days due to nausea. Initial blood pressure was 220 systolic she was given labetalol and systolic dropped to 170. Patient sodium 126 with no neurologic deficits. She was given Compazine for nausea. At the time of my evaluation patient is asleep slow to arouse but states she has no headache or nausea. She reported URI at home and abdominal pain in August. She is chronically on aspirin and Plavix. Patient had a CT abdomen pelvis shows colitis consistent with diarrheal illness. CTA head and neck showed Review of Systems Narrative: General No fevers chills Neuro patient denies headache or nausea she states she had had it off and on prior to coming to the ER Cardiovascular no chest pain Medications/Allergies Home Medications ?Medication ?Instructions ?Recorded ?Confirmed ?Last Taken ?Type albuterol sulfate 90 mcg/actuation 2 puff inhalation QID PRN 01/01/24 12/12/24 Unknown Rx aerosol inhaler shortness of breath or wheezing #6.7 grams metoprolol tartrate 25 mg tablet 25 mg PO BID 02/16/24 12/12/24 09/10/24 07:00 History amlodipine 5 mg tablet 5 mg PO DAILY #30 tabs 02/18/24 12/12/24 09/10/24 07:00 Rx Held on 09/12/24. Instructions: Resume on 09/18/24. atorvastatin 40 mg tablet 80 mg (2 x 40 mg) PO DAILY #30 tabs 02/18/24 12/12/24 09/10/24 07:00 Rx clopidogrel 75 mg tablet 75 mg PO DAILY #30 tabs 02/18/24 12/12/24 09/10/24 07:00 Rx bupropion HCl 100 mg tablet,12 hr 100 mg PO DAILY 04/01/24 12/12/24 09/10/24 07:00 History sustained-release (Wellbutrin SR) lisinopril 20 mg tablet 20 mg PO DAILY 09/10/24 12/12/24 09/10/24 07:00 History omeprazole 20 mg capsule,delayed 20 mg PO DAILY 09/10/24 12/12/24 09/10/24 07:00 History release aspirin 325 mg capsule 325 mg PO DAILY #30 caps 09/12/24 12/12/24 Unknown Rx hydrocodone 5 mg-acetaminophen 325 1 tab PO Q4H PRN Moderate To 11/15/24 12/12/24 Unknown Rx mg tablet Severe Pain 1st 7 days #42 tabs Allergies Allergy/AdvReac Type Severity Reaction Status Date / Time No Known Allergies Allergy Verified 10/29/24 13:50 PFSH Acute PFSH: Medical History (Updated 10/13/25 @ 02:06 by Jae Garrett MD) Paroxysmal atrial fibrillation Noted post R CEA 07/2024, on one EKG 12/2023, NOT seen on 21 day holter in 02/2024 History of fracture of wrist left Dyslipidemia History of Holter monitoring 02/2024 21 day monitorin, baseline sinus jose david at 55 bpm, occasional supraventricular and rare ventricular ectopic beats. No atrial arrhythmias noted. Hypertension Posterior reversible encephalopathy syndrome (PRES) 01/2024 COPD (chronic obstructive pulmonary disease) Occlusion of both vertebral arteries History of echocardiogram 02/2024 [facility] EF 60-65%, no R>L shunt, mild MR, mild TR, grade 1 diastolic dysfunction Atrial arrhythmia Brain aneurysm 2015 and 2016, treated with stents/coils Carotid stenosis, right 12/2023 70%-80%, underwent right CEA in 07/2024 Hypertensive emergency 12/2023 CVA (cerebral vascular accident) 12/2023 right hemiparesis Surgical History History of right-sided carotid endarterectomy (08/21/24) with EnRoute transcarotid stent placement, done at [facility] H/O hand surgery right hand S/P cerebral aneurysm repair Family History Brother Cancer Father CAD (coronary artery disease) Mother Dementia Family/Other Anesthesia complication niece Denies family history of Diabetes Bleeding disorder Social History (Updated 10/13/25 @ 02:01 by Jae Garrett MD) Smoking and tobacco/nicotine status: current every day tobacco/nicotine user cigarettes Packs smoked per day: 1 Years cigarettes smoked: 50 [ Other cigarette details: trying to quit] Alcohol intake: former Substance/Drug Use: current Other substance/drug use details: Occasional THC gummies Additional social history: Patient denied weed or meth use to me she lives with her daughter is disabled and 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 She wants full CODE STATUS as discussed with Jae Garrett MD on 10/13/2025 Lives independently: No Household members: family Housing: House Marital status: Single Number of children: 2 Pets and animals: Yes Pets & animals: cat(s) and dog(s) Vitals/I&O/Wt Last Vital Signs Temp 98.3 F 10/12/25 20:03 Pulse 83 10/13/25 01:31 Resp 24 H 10/13/25 01:31 BP 170/134 10/13/25 01:31 Pulse Ox 96 10/13/25 01:31 O2 Del Method Room Air 10/12/25 20:03 10/12/25 10/12/25 10/13/25 14:59 22:59 06:59 Intake Total 1050 / 1050 Balance 1050 / 1050 Weight last 48 hrs Weight 40.188 kg Physical Exam Narrative: General Well-developed thin female in no acute cardiopulmonary distress Oral Mallampati 3 Neuro pupils are equally round and reactive to light external ocular movements are intact. Face is symmetric tongue protrusion no deviation. Motor strength on turning to the left and the right with the chin is equal and strong. Shoulder shrug 5/5 left 4+ right handgrips 5/5 left 5 - right biceps and triceps 5/5 left 5 - on the right ankle flexion and extension 5/5 left 5 - on the right Neck no carotid bruits CV regular rate and rhythm no loud murmur Lungs good auscultation bilaterally Abdomen positive bowel tones soft nontender no rebound Calves no tenderness cords or pretibial edema Dorsal pedal pulses 2+ left 1 - on the right posterior tibial pulses 2/4 bilaterally Data 10/12/25 21:00 10/12/25 21:00 CT Head: Radiologist's impression: IMPRESSION: 1. 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 Extensive supratentorial white matter disease. 2. Status post coiling of basilar tip aneurysm without residual aneurysm or vascular malformation. Bilateral posterior cerebral arteries are visualized without gopi evidence of occlusion. Their origin are not well evaluated due to beam hardening artifact from the aneurysm coil. Overall, no change since prior study. IMPRESSION: Status post right-sided stent placement through distal right common carotid artery extending into the proximal internal carotid artery without restenosis, new since prior study. 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 Small caliber right vertebral artery is seen starting at C3 level. There is up to 70% stenosis in the origin of left-sided vertebral artery, unchanged. A&P Assessment and plan 1. Hypertension: Patient's blood pressure already much improved. Will give amlodipine lisinopril and metoprolol home doses 2. Hyponatremia: Start normal saline infusion and recheck BMP in the morning 3. COPD (chronic obstructive pulmonary disease): Stable 4. Tobacco abuse: Patient will need additional counseling regarding smoking cessation. In the past she reported she was trying to stop 5. Enteritis: Recent viral symptoms of cough URI abdominal pain. Patient denies diarrhea recently and denies abdominal pain. No specific treatment at this time. Will treat hyponatremia PDMP PDMP Reviewed: Not Reviewed Attestations Medical Necessity Statement*: Patient mid to hospital with hyponatremia and hypertension and will require greater than 2 midnights Coding Level of Care Code 22169 Diagnoses Hypertension I10 Hyponatremia E87.1 COPD (chronic obstructive pulmonary disease) J44.9 Tobacco abuse Z72.0 Enteritis K52.9 Time Spent (min) 57
[2025-10-13 06:38] LABS: Anion Gap 15.9 (5-19); Blood Urea Nitrogen 19 mg/dL (8-23); Calcium 9.0 mg/dL (8.5-10.5); Carbon Dioxide 25 mmol/L (22-29); Chloride 91 mmol/L (98-107); Glucose 102 mg/dL (65-115); Osmolality Calculated 268 mOsm/kg (285-295); Potassium 3.9 mmol/L (3.5-5.1); Sodium 128 mmol/L (136-145)
[2025-10-13] MEDS: HYDROcodone-acetaminophen 5-325 mg Tablet 1 TAB PO ×2 (15:37→20:50)
--- NOTE | 2025-10-13 16:45 | P.PN_ITS ---
Subjective 2 Subjective: Debbie Peres is a 70 year old female with history of brain aneurysm post coil as well as right carotid stenosis post carotid stent 2023 comes in with elevated blood pressure and headache. She was treated with labetalol in the emergency department. Patient did not take her metoprolol at home. She states she has missed her medicines for about 3 days due to nausea. Initial blood pressure was 220 systolic she was given labetalol and systolic dropped to 170. Patient sodium 126 with no neurologic deficits. She was given Compazine for nausea. At the time of my evaluation patient is asleep slow to arouse but states she has no headache or nausea. She reported URI at home and abdominal pain in August. She is chronically on aspirin and Plavix. Patient had a CT abdomen pelvis shows colitis consistent with diarrheal illness. Patient resting in bed at time of checkup this afternoon. Daughter at bedside. Patient reports that she had had a stomach bug and nausea that kept her from taking her metoprolol for 3 days. She had severe headache that persists. BP has improved. She has discharge planning for tomorrow. Vitals/I&O/Wt Last Vital Signs Temp 97.7 F 10/13/25 15:56 Pulse 82 10/13/25 15:56 Resp 18 10/13/25 15:56 BP 137/63 10/13/25 15:56 Pulse Ox 92 10/13/25 15:56 O2 Del Method Room Air 10/13/25 15:56 10/13/25 10/13/25 10/13/25 06:59 14:59 22:59 Intake Total 1050 / 1050 1670 / 1670 Balance 1050 / 1050 1670 / 1670 Weight last 48 hrs Weight 43.2 kg Weight 41.613 kg Weight 40.188 kg Data 10/12/25 21:00 10/13/25 05:48 A&P PDMP PDMP Reviewed: Not Reviewed Attestations 2 Medical Necessity Statement*: Patient not expected to stay 2 additional midnights. Patient has discharge planning for tomorrow. Coding Level of Care Code Acute Code for Chg Elida
[2025-10-14] VITALS (8 sets, daily range): BP systolic 143–182; BP diastolic 65–83; PULSE 81–93; RESP 16–19; TEMP 36.5–37.7; O2SAT 90–94
[2025-10-14 06:32] LABS: Magnesium 1.6 mg/dL (1.7-2.3)
[2025-10-14 06:56] LABS: Hematocrit 39.9 % (36-47); Hemoglobin 13.80 g/dL (11.27-16.99); Mean Corpuscular HGB Conc 34.6 g/dL (30-55); Mean Corpuscular Hemoglobin 29.2 pg (27-33); Mean Corpuscular Volume 84.5 fl (85-98); Nucleated Red Blood Cells % 0 %; Platelet Count 325 10^3/cmm (157-399); Red Blood Count 4.72 10^6/uL (3.85-5.65); White Blood Count 18.96 10^3/uL (3.29-11.43)
--- NOTE | 2025-10-14 10:28 | PC.NURSE ---
IV Mag refused as pt refused IV. Dr. Love notified.
[2025-10-14 13:16] LABS: Alanine Aminotransferase 16 U/L (0-33); Albumin Level 3.2 g/dL (3.5-5.2); Alkaline Phosphatase 95 U/L (35-105); Anion Gap 13.7 (5-19); Aspartate Amino Transferase 28 U/L (0-32); Blood Urea Nitrogen 17 mg/dL (8-23); Calcium 8.7 mg/dL (8.5-10.5); Carbon Dioxide 25 mmol/L (22-29); Chloride 94 mmol/L (98-107); Globulin 3.0 g/dL (1.3-4.6); Glucose 124 mg/dL (65-115); Osmolality Calculated 271 mOsm/kg (285-295); Potassium 3.7 mmol/L (3.5-5.1); Sodium 129 mmol/L (136-145); Total Protein 6.2 g/dL (6.6-8.7)
[2025-10-14] MEDS: HYDROcodone-acetaminophen 5-325 mg Tablet 1 TAB PO (13:49)
[2025-10-14] MEDS: cefTRIAXone 1,000 mg SDV 1000 MG IVP (15:45)
[2025-10-14 19:02] LABS: Coronavirus 229E,HKU1,NL63,OC4 Not Detected (NOT DETECT); Parainfluenza Virus Type 1 Not Detected (NOT DETECT); Parainfluenza Virus Type 2 Not Detected (NOT DETECT); Parainfluenza Virus Type 3 Not Detected (NOT DETECT); Parainfluenza Virus Type 4 Not Detected (NOT DETECT)
[2025-10-14 19:15] LABS: SARS-COV-2 Detected (NOT DETECT)
--- NOTE | 2025-10-14 19:22 | P.PN_ITS ---
Subjective 2 Subjective: Patient seen in the morning, currently stable did not voice any concerns. Morning labs were pending, hyponatremia observed. found to have COVID 19 positive with hyponatremia Vitals/I&O/Wt Last Vital Signs Temp 98.0 F 10/14/25 16:28 Pulse 88 10/14/25 16:28 Resp 19 H 10/14/25 16:28 BP 150/79 10/14/25 16:28 Pulse Ox 91 10/14/25 16:28 O2 Del Method Room Air 10/14/25 16:28 O2 Flow Rate 2 10/14/25 04:55 10/14/25 10/14/25 10/14/25 06:59 14:59 22:59 Intake Total 480 / 2510 480 / 480 112.5 / 592.5 Balance 480 / 2510 480 / 480 112.5 / 592.5 Weight last 48 hrs Weight 43.2 kg Weight 41.613 kg Weight 40.188 kg Physical Exam 2 Narrative: General: Alert and oriented, lying comfortably without any distress, on 1 to 2 L oxygen and saturating 91% at room air. HEENT: Normocephalic, atraumatic, grossly unremarkable exam Cardio: normal rate rhythm, normal S1-S2 without any murmurs, rubs, or gallops and JVD normal Respiratory: normal vascular breathing with mild crackles and wheezes diffusely heard. GI: Abdomen soft, nontender, nondistended, normoactive bowel sounds present all 4 quadrants, Neuro: intact cranial nerves motor and sensory and cerebellar/coordination function without any focal neurological deficit Behavior: Appropriate and cooperative Extremities: Adequate palpable pulses, no edema or cyanosis observed Skin: grossly unremarkable exam Data 10/14/25 05:18 10/14/25 12:50 A&P Assessment and plan 1. Primary hypertension: Blood pressure is better Continue amlodipine 5 mg daily, metoprolol 25 twice daily and lisinopril 20 mg daily Titrate medications according to the blood pressure Monitor 2. Hyponatremia: Continue IV fluids, hyponatremia high likely secondary to COVID-19 Monitor intake and output Monitor sodium tomorrow with further plan of care 3. Tobacco abuse: Patient has been provided with emphasis on abstinent from smoking with risks and benefits of the discussion PCP follow-up 4. Enteritis: Recent viral symptoms of cough URI abdominal pain. And had mild diarrhea Currently no diarrhea Symptomatic management with adequate hydration Ondansetron for nausea and vomiting 5. COVID-19: Patient had more than 5 days of COVID-19 symptoms therefore does not qualify for COVID-19 treatment Symptomatic management only. 6. Paroxysmal atrial fibrillation: Continue on metoprolol 25 mg BID 7. COPD (chronic obstructive pulmonary disease): Patient having history of COPD but not on home oxygen 91% on room air, 1 to 2 L of oxygen and having mild crackles and wheezing COVID-19 positive DuoNebs scheduled Prednisone 40 mg daily for 5 days Oxygen supplementation to maintain oxygen saturation above 92% Monitor hemodynamics Plan: VTE: enoxaparin diet: cardiac diet PDMP PDMP Reviewed: Not Reviewed Attestations 2 Medical Necessity Statement*: Patient with history overnight for the management of hyponatremia secondary to high likely COVID-19 Time Spent in Patient Care: 16 - 35 minutes (>than 50% of time sp ent in counselling and/or direct pt care on unit) . Other Attestations: Patient condition has been discussed at length with the patient/family, I have independently reviewed the chart labs imaging/diagnostics/EKG. the goals of care and code status with the patient/family/NOK/legal client service representative, and documented accordingly. I have reconciled the medications after confirmation/comorbidities/current clinical condition. The management has been done according to the current clinical condition with respect to patient goals of care and based on recommendations/guidelines. The patient/family has been informed about the current condition and further plan of care. Agreed with the plan of care and understood without any language barrier. Every effort was made to ensure accuracy of x ray equipment mechanic. Any obvious errors or omissions should be clarified with the author of the document. Coding Level of Care Code 86739 Diagnoses Primary hypertension I10 Hypertension type: primary hypertension Hyponatremia E87.1 Tobacco abuse Z72.0 Enteritis K52.9 COVID-19 U07.1 Paroxysmal atrial fibrillation I48.0 COPD (chronic obstructive pulmonary disease) J44.9
[2025-10-14] MEDS: doxycycline 100 MG in sodium chloride 0.9% (plus) 100 ML IV (20:15)
[2025-10-15] VITALS: BP 166/85; PULSE 78; RESP 16; TEMP 36.6; O2SAT 92
[2025-10-15 04:00] VITALS: BP 182/80; PULSE 73; RESP 16; TEMP 37.1; O2SAT 90
[2025-10-15 06:08] LABS: Hematocrit 44.0 % (36-47); Hemoglobin 14.40 g/dL (11.27-16.99); Mean Corpuscular HGB Conc 32.7 g/dL (30-55); Mean Corpuscular Hemoglobin 29.2 pg (27-33); Mean Corpuscular Volume 89.2 fl (85-98); Nucleated Red Blood Cells % 0 %; Platelet Count 309 10^3/cmm (157-399); Red Blood Count 4.93 10^6/uL (3.85-5.65); White Blood Count 14.24 10^3/uL (3.29-11.43)
[2025-10-15 06:25] LABS: Alanine Aminotransferase 14 U/L (0-33); Albumin Level 2.4 g/dL (3.5-5.2); Alkaline Phosphatase 92 U/L (35-105); Anion Gap 15.0 (5-19); Aspartate Amino Transferase 20 U/L (0-32); Blood Urea Nitrogen 11 mg/dL (8-23); Calcium 8.7 mg/dL (8.5-10.5); Carbon Dioxide 22 mmol/L (22-29); Chloride 102 mmol/L (98-107); Globulin 3.6 g/dL (1.3-4.6); Glucose 141 mg/dL (65-115); Osmolality Calculated 282 mOsm/kg (285-295); Potassium 4.0 mmol/L (3.5-5.1); Sodium 135 mmol/L (136-145); Total Protein 6.0 g/dL (6.6-8.7)
[2025-10-15 08:00] VITALS: PULSE 88; RESP 16; O2SAT 94
[2025-10-15 08:11] VITALS: BP 151/79; PULSE 64; RESP 16; TEMP 36.6; O2SAT 94
[2025-10-15] MEDS: doxycycline 100 MG in sodium chloride 0.9% (plus) 100 ML IV (08:52)
--- NOTE | 2025-10-15 09:10 | PM.DCS ---
Discharge Providers Date of Admission: 10/13/25 00:00 Date of Discharge: October 15, 2025 Attending Provider at Admission: Jae Garrett MD Attending Provider at Discharge: Britta Love MD Primary Care Provider: Lucrecia Franco APN Diagnoses at Discharge Discharge Diagnosis 1. Primary hypertension: 2. Hyponatremia: 3. Tobacco abuse: 4. Enteritis: 5. COVID-19: 6. Paroxysmal atrial fibrillation: 7. Mucopurulent chronic bronchitis: Reason for Visit Reason for Visit: n/v headache HBP Brief History: As per the previous notes and the patient: Debbie Peres is a 70 year old female with history of brain aneurysm post coil as well as right carotid stenosis post carotid stent 2023 comes in with elevated blood pressure and headache. She was treated with labetalol in the emergency department. Patient did not take her metoprolol at home. She states she has missed her medicines for about 3 days due to nausea. Initial blood pressure was 220 systolic she was given labetalol and systolic dropped to 170. Patient sodium 126 with no neurologic deficits. She was given Compazine for nausea. At the time of my evaluation patient is asleep slow to arouse but states she has no headache or nausea. She reported URI at home and abdominal pain in August. She is chronically on aspirin and Plavix. Patient had a CT abdomen pelvis shows colitis consistent with diarrheal illness. CTA head and neck showed Hospital Course Hospital Course During patient hospital stay she was managed as a case of uncontrolled hypertension. Her blood pressure improved however she was also having hyponatremia and some flulike symptoms. Her respiratory viral panel showed COVID positive and she was requiring 1 to 2 L of oxygen therapy for 24 hours since she was saturating in 90 to 91% on room air. After giving her treatment for atypical pneumonia as she did not qualify based on recommendation for her COVID-pneumonia symptoms that started more than 5 days ago and with steroids she improved significantly. After giving the adequate hydration, her hyponatremia also Got better near to normal. Her kidney functions also stabilized. The patient was really feeling well. And she appreciated the care provided by the medical team. Medications were reconciled after confirmation and according to patient comorbidities and appropriate follow-ups and referrals were provided at the time of discharge. Patient condition has been discussed at length with the patient/family, I have independently reviewed the chart labs imaging/diagnostics/EKG. the goals of care and code status with the patient/family/NOK/legal business office representative, and documented accordingly. The management has been done according to the current clinical condition with respect to patient goals of care and based on recommendations/guidelines. The patient/family has been informed about the current condition and further plan of care. Agreed with the plan of care and understood without any language barrier. Every effort was made to ensure accuracy of gravure printing machinist. Any obvious errors or omissions should be clarified with the author of the document. Physical Exam Narrative: General: Alert and oriented, lying comfortably without any distress, on 1 to 2 L oxygen and saturating 91% at room air. HEENT: Normocephalic, atraumatic, grossly unremarkable exam Cardio: normal rate rhythm, normal S1-S2 without any murmurs, rubs, or gallops and JVD normal Respiratory: normal vascular breathing with mild crackles and wheezes diffusely heard. GI: Abdomen soft, nontender, nondistended, normoactive bowel sounds present all 4 quadrants, Neuro: intact cranial nerves motor and sensory and cerebellar/coordination function without any focal neurological deficit Behavior: Appropriate and cooperative Extremities: Adequate palpable pulses, no edema or cyanosis observed Skin: grossly unremarkable exam Discharge Data Studies Completed and Pending Completed Studies During Hospitalization Category Date Time Status CT abdomen pelvis wo con [id number] Stat Cat Scan 10/12/25 20:[address] angio headneck* [id number] Stat Cat Scan 10/12/25 20:45 Completed XR chest 1V portable [id number] Stat Exams 10/12/25 20:45 Completed Pending at discharge Category Date Time Status CBC Auto Diff [Complete Blood Count w/Auto] AM LABS Lab 10/16/25 04:00 Ordered CMP [Comprehensive Metabolic Panel] AM LABS Lab 10/16/25 04:00 Ordered Urinalysis Stat Lab 10/12/25 20:45 Uncollected Radiology Impressions Abdomen/Pelvis CT 10/12/25 20:45 IMPRESSION: Few fluid-filled loops of small bowel, nonspecific finding but may be seen with enteritis of infectious or inflammatory etiology. No small bowel obstruction. Chest X-Ray 10/12/25 20:45 IMPRESSION: No acute cardiopulmonary findings. Head/Neck CTA 10/12/25 20:45 IMPRESSION: 1. 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 Extensive supratentorial white matter disease. 2. Status post coiling of basilar tip aneurysm without residual aneurysm or vascular malformation. Bilateral posterior cerebral arteries are visualized without gopi evidence of occlusion. Their origin are not well evaluated due to beam hardening artifact from the aneurysm coil. Overall, no change since prior study. IMPRESSION: Status post right-sided stent placement through distal right common carotid artery extending into the proximal internal carotid artery without restenosis, new since prior study. 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 Small caliber right vertebral artery is seen starting at C3 level. There is up to 70% stenosis in the origin of left-sided vertebral artery, unchanged. REFERENCES: NASCET CRITERIA. The degree of stenosis in the cervical segment of the internal carotid artery is based on NASCET criteria. Normal is no stenosis. Mild is less than 50% stenosis. Moderate is 50-69% stenosis. Severe is 70% to 99% stenosis. Total occlusion is no detectable patent lumen. Laboratory Results WBC 14.24 10^3/uL (3.29-11.43) H 10/15/25 05:18 Corrected WBC Cancelled 10/12/25 21:00 RBC 4.93 10^6/uL (3.85-5.65) 10/15/25 05:18 Hgb 14.40 g/dL (11.27-16.99) 10/15/25 05:18 Hct 44.0 % (36-47) 10/15/25 05:18 MCV 89.2 fl (85-98) D 10/15/25 05:18 MCH 29.2 pg (27-33) 10/15/25 05:18 MCHC 32.7 g/dL (30-55) D 10/15/25 05:18 RDW 12.4 % (12.1-15.1) 10/15/25 05:18 Plt Count 309 10^3/cmm (157-399) 10/15/25 05:18 MPV 9.8 fL (7.4-10.4) 10/15/25 05:18 Gran % Cancelled 10/12/25 21:00 Neut % (Auto) 89.6 % 10/15/25 05:18 Lymph % (Auto) 4.4 % 10/15/25 05:18 [place] % (Auto) 1.4 % 10/15/25 05:18 Eos % (Auto) 0.0 % 10/15/25 05:18 Baso % (Auto) 0.2 % 10/15/25 05:18 Neut # (Auto) 12.75 10^3/uL (1.8-7.7) H 10/15/25 05:18 Lymph # (Auto) 0.6 10^3/uL (0.8-4.8) L 10/15/25 05:18 [place] # (Auto) 0.2 10^3/uL (0.2-0.9) 10/15/25 05:18 Eos # (Auto) 0.0 10^3/uL (0.0-0.8) 10/15/25 05:18 Baso # (Auto) 0.0 10^3/uL (0.0-0.1) 10/15/25 05:18 Absolute Gran (auto) Cancelled 10/12/25 21:00 Nucleated RBC % (auto) 0 % 10/15/25 05:18 Nucleated RBCs # 0.0 /100WBC 10/15/25 05:18 Sodium 135 mmol/L (136-145) L 10/15/25 05:18 Potassium 4.0 mmol/L (3.5-5.1) 10/15/25 05:18 Chloride 102 mmol/L (98-107) 10/15/25 05:18 Carbon Dioxide 22 mmol/L (22-29) 10/15/25 05:18 Anion Gap 15.0 (5-19) 10/15/25 05:18 BUN 11 mg/dL (8-23) 10/15/25 05:18 Creatinine 0.9 mg/dL (0.5-0.9) 10/15/25 05:18 GFR Calculation 62.1 mL/min (90-130) L 10/15/25 05:18 Glucose 141 mg/dL (65-115) H 10/15/25 05:18 POC Glucose 86 mg/dL (70-110) 10/13/25 04:44 Calculated Osmolality 282 mOsm/kg (285-295) L 10/15/25 05:18 Lactic Acid 1.8 mmol/L (0.5-2.2) 10/12/25 21:00 Lactic Acid Cancelled 10/12/25 21:00 Calcium 8.7 mg/dL (8.5-10.5) 10/15/25 05:18 Magnesium 1.6 mg/dL (1.7-2.3) L 10/14/25 05:18 Total Bilirubin 0.3 mg/dL (0.15-1.2) 10/15/25 05:18 AST 20 U/L (0-32) 10/15/25 05:18 ALT 14 U/L (0-33) 10/15/25 05:18 Alkaline Phosphatase 92 U/L (35-105) 10/15/25 05:18 Troponin T Baseline 23 ng/L (0-10) H 10/12/25 21:00 Troponin T Baseline Cancelled 10/12/25 21:00 Troponin T 60 Minute 23.10 ng/L (0-10) H 10/12/25 21:43 Delta Troponin T 0.10 ABS# (0-10) 10/12/25 21:43 C-Reactive Protein 47.1 mg/L (0.0-4.9) H 10/12/25 21:00 C-Reactive Protein Cancelled 10/12/25 21:00 NT-Pro-B Natriuret Pep 1924 pg/mL (0-125) H 10/12/25 21:00 NT-Pro-B Natriuret Pep Cancelled 10/12/25 21:00 Total Protein 6.0 g/dL (6.6-8.7) L 10/15/25 05:18 Albumin 2.4 g/dL (3.5-5.2) L 10/15/25 05:18 Globulin 3.6 g/dL (1.3-4.6) 10/15/25 05:18 Lipase 22 U/L (13-60) 10/12/25 21:00 Lipase Cancelled 10/12/25 21:00 Adenovirus (PCR) Not detected (NOT DETECT) 10/14/25 16:37 C. pneumoniae DNA (PCR) Not detected (NOT DETECT) 10/14/25 16:37 Coronavirus 229E (PCR) Not detected (NOT DETECT) 10/14/25 16:37 Human Metapneumovir PCR Not detected (NOT DETECT) 10/14/25 16:37 Influenza A (H1) PCR Not detected (NOT DETECT) 10/14/25 16:37 Influ A (H1/09) PCR Not detected (NOT DETECT) 10/14/25 16:37 Influenza A (H3) PCR Not detected (NOT DETECT) 10/14/25 16:37 Influenza Type A (PCR) Not detected (NOT DETECT) 10/14/25 16:37 Influenza Type B (PCR) Not detected (NOT DETECT) 10/14/25 16:37 M. pneumoniae (PCR) Not detected (NOT DETECT) 10/14/25 16:37 Parainfluenza 1 (PCR) Not detected (NOT DETECT) 10/14/25 16:37 Parainfluenza 2 (PCR) Not detected (NOT DETECT) 10/14/25 16:37 Parainfluenza 3 (PCR) Not detected (NOT DETECT) 10/14/25 16:37 Parainfluenza 4 (PCR) Not detected (NOT DETECT) 10/14/25 16:37 RSV Type A (PCR) Not detected (NOT DETECT) 10/14/25 16:37 RSV Type B (PCR) Not detected (NOT DETECT) 10/14/25 16:37 Entero/Rhino (PCR) Not detected (NOT DETECT) 10/14/25 16:37 SARS-CoV-2 (PCR) Detected (NOT DETECT) A 10/14/25 16:37 Vitals Last Vital Signs Temp 97.8 F 10/15/25 08:11 Pulse 64 10/15/25 08:11 Resp 16 10/15/25 08:11 BP 151/79 10/15/25 08:11 Pulse Ox 94 10/15/25 08:11 O2 Del Method Room Air 10/15/25 08:11 O2 Flow Rate 2 10/14/25 04:55 Discharge Plan Discharge Patient Disposition: Home Condition: Stable Prescriptions: New levofloxacin 750 mg tablet 750 mg PO DAILY 5 Days Qty: 5 0RF prednisone 20 mg Tablet 40 mg PO DAILY 4 Days Qty: 8 0RF amlodipine 10 mg tablet 10 mg PO DAILY Qty: 60 0RF Continued albuterol sulfate 90 mcg/actuation HFA aerosol inhaler 2 puff inhalation QID PRN (Reason: shortness of breath or wheezing) Qty: 6.7 0RF bupropion HCl [Wellbutrin SR] 100 mg tablet sustained-release 12 hr 100 mg PO DAILY metoprolol tartrate 25 mg tablet 25 mg PO DAILY atorvastatin 40 mg Tablet 80 mg PO DAILY Qty: 30 0RF clopidogrel 75 mg Tablet 75 mg PO DAILY Qty: 30 0RF lisinopril 20 mg tablet 20 mg PO DAILY omeprazole 20 mg capsule,delayed release(DR/EC) 20 mg PO DAILY aspirin 325 mg capsule 325 mg PO DAILY Qty: 30 0RF multivitamin Tablet 1 tab PO DAILY cyclobenzaprine 10 mg tablet 10 mg PO BEDTIME PRN (Reason: Muscle Spasm) acetaminophen 500 mg Tablet 500 mg PO Q6H PRN (Reason: Pain) potassium 99 mg Tablet 99 mg PO DAILY calcium carbonate 500 mg calcium (1,250 mg) Tablet,Chewable 500 mg PO TID PRN (Reason: Indigestion) [id number] 122-D3 250-125-3.7-100 gm-no-hv-unit Tablet 1 tab PO DAILY Discharge Order = DC NOW: Discharge Order (Routine); Ordered 10/15/25 Ordered By: Britta Love Referrals: Lucrecia Franco APN [Primary Care Provider, [facility]] - 10/21/25 11:00 am Discharge Diet: Advance as tolerated Discharge Activity: Resume usual activity Patient Instructions: Opioid Safety, Patient Portal & Jose Instructions Discharge Attestations Time Spent in Discharge Care*: greater than 30 min Specific Discharge Activities: educating patient, educating and/or supporting family/caregiver, discussing with pcp/other providers, discussing with case finishing machine adjuster/social workers/dc planners, documenting/other paperwork and evaluating patient/reviewing data Time Spent in Smoking Cessation: 3 to 10 minutes Status at Discharge: Cognitive status at discharge: cognitively intact, Behavioral status at discharge: cooperative, Functional status at discharge: uses cane/walker, Overall status at discharge: patient is back to baseline Quality Metrics Clinical Quality Measures [ No reported AMI, CVA or VTE this stay] Coding Level of Care Code Acute Code for [facility] Fwd Diagnoses Primary hypertension I10 Hypertension type: primary hypertension Hyponatremia E87.1 Tobacco abuse Z72.0 Enteritis K52.9 COVID-19 U07.1 Paroxysmal atrial fibrillation I48.0 Mucopurulent chronic bronchitis J41.1 COPD type: chronic bronchitis Chronic bronchitis type: mucopurulent
[2025-10-15 11:25] VITALS: BP 136/65; PULSE 71; RESP 18; TEMP 36.6; O2SAT 94
[2025-10-15 12:58] VITALS: BP 136/65; PULSE 71; RESP 16; TEMP 36.6; O2SAT 94
--- NOTE | 2025-10-15 13:00 | PC.NURSE ---
patient DC removed iv took vitals went over packet, she didnt want pack left here. all belongings collected by daughter. nurse gave homemeds from [facility]
== END 2025-10-15 13:01 | disposition home or self-care (01) | DRG 177 ==
LOC: ER 10-13 00:10 → MEDSURG 10-13 00:12
PROVIDERS: Admitting Provider Internal Medicine; Emergency Provider Student in an Organized Health Care Education/Training Program; PCP Nurse Practitioner Family; Visit Provider Student in an Organized Health Care Education/Training Program
DX: U07.1 COVID-19 (principal); J12.82 Pneumonia due to coronavirus disease 2019; E87.1 Hypo-osmolality and hyponatremia; J44.0 Chronic obstructive pulmonary disease with (acute) lower respiratory infection; I69.351 Hemiplegia and hemiparesis following cerebral infarction affecting right dominant side; K52.9 Noninfective gastroenteritis and colitis, unspecified; I10 Essential (primary) hypertension; F17.210 Nicotine dependence, cigarettes, uncomplicated; E78.5 Hyperlipidemia, unspecified; I48.0 Paroxysmal atrial fibrillation; J41.1 Mucopurulent chronic bronchitis; Z71.6 Tobacco abuse counseling; Z79.01 Long term (current) use of anticoagulants; Z79.899 Other long term (current) drug therapy; Z79.82 Long term (current) use of aspirin; Z79.02 Long term (current) use of antithrombotics/antiplatelets; Z91.128 Patient's intentional underdosing of medication regimen for other reason
CPT/HCPCS: 36415; 36416; 70496; 70498; 71045; 74176; 80048; 80053; 82962; 83605; 83690; 83735; 83880; 84484; 85025; 86140; 87486; 87581; 87633; 93005; 94640; 94664; 96365; 96372; 96375; 99285; J0456; J0696; J0780; J1200; J1650; J3475; J3490; J7030; J7050; J7512; J9999